=== PATIENT | female | born 1995 | race Caucasian/White ===

== ENCOUNTER 2016-09-27 10:55 | Emergency (ER) | payer BC, OTHER ==
[2016-09-27] MEDS ORDERED: SODIUM CHLORIDE 0.9% 1,000 ML IV STA (14:06)
[2016-09-27] MEDS ORDERED: ACETAMINOPHEN IV (For NPO) 1,000 MG in EMPTY BAG 1 BAG IVPB STA (14:06)
[2016-09-27 14:39] LABS: Basophils % (A) 0 %; CHCM 33.8; Eosinophils % (A) 0 %; HCT 39.3 % (34.0-46.0); HDW 2.26; Luc # (Auto) 0.11; Luc % (Auto) 2; Lymphocytes # (A) 1.7 k/uL (1.0-4.8); Lymphocytes % (A) 25 %; MCH 29.6 pg (25.0-35.0); MCHC 33.2 g/dL (31.0-37.0); Mean Platelet Volume 7.1; Monocytes # (A) 0.2 k/uL (0-1.0); Monocytes % (A) 4 %; Neutrophils # (A) 4.6 k/uL (1.3-7.7); Neutrophils % (A) 69 %; RBC 4.41 m/uL (3.80-5.40); RDW 13.7 % (11.5-15.5); WBC 6.7 k/uL (4.0-11.0)
[2016-09-27 14:49] LABS: Appearance,Urine Cloudy (Clear); Bacteria,Urine Rare /hpf; Bilirubin,Urine Negative (Negative); Glucose,Urine (UA) Negative (Negative); Ketones,Urine Negative (Negative); Leukocyte Esterase,Urine Large (Negative); Mucus,Urine Rare /hpf; Nitrite,Urine Negative (Negative); Particle Count 9790; Protein,Urine Negative (Negative); RBC,Urine 1 /hpf (0-5); Specific Gravity,Urine 1.011 (1.001-1.035); Squamous Epithelial Cell,Urine 12 /hpf (0-4); UA Billing (MACRO vs. MICRO) MICRO; Urobilinogen,Urine <2.0 mg/dL (<2.0); WBC,Urine 32 /hpf (0-5)
[2016-09-27 14:53] LABS: ALT 28 U/L (9-52); AST 13 U/L (14-36); Alkaline Phosphatase 60 U/L (38-126); Anion Gap 11 mmol/L; Blood Urea Nitrogen 4 mg/dL (7-17); Calcium 9.4 mg/dL (8.4-10.2); Carbon Dioxide 24 mmol/L (22-30); Chloride 103 mmol/L (98-107); Glucose 77 mg/dL (74-99); Non-African American GFR(MDRD) >60 (>60 ml/min/1.73 sqM); Sodium 138 mmol/L (137-145); Total Bilirubin 0.4 mg/dL (0.2-1.3); Total Protein 6.8 g/dL (6.3-8.2)
--- NOTE | 2016-09-27 14:58 | ED ---
Abdominal Pain HPI - General Chief Complaint: OB/Uterine Contractions Stated Complaint: abd pain, 12 weeks preg Time Seen by Provider: 09/27/16 14:00 Source: patient, RN notes reviewed Mode of arrival: ambulatory Limitations: no limitations - History of Present Illness Initial Comments: 20-year-old female presents to the emergency Department chief complaint of bilateral side pain. Patient states this started over the last few days. Patient states that's on the lower belly as well as the back. Patient states that she is currently about 12 weeks. Patient states that she called the [facility] she was referred here. Patient denies any burning or stinging with urination. Patient denies any fever or chills. Patient states that her belly doesn't hurt side. Patient states that it not really tender to touch either. Patient states she was concerned due to the pain so she thought that she should be evaluated. Patient states that she is not currently having any other symptoms at this time.Patient denies any recent fever, chills, shortness of breath, chest pain, back pain, abdominal pain, nausea vomiting, numbness or tingling, dysuria or hematuria, constipation or diarrhea, headaches or visual changes, or any other current symptoms. - Related Data Home Medications Medication Instructions Recorded Confirmed Pnv with Ca,No.72/Iron/FA 1 tab PO W/LUNCH 09/27/16 09/27/16 [ Plus Tablet] Previous Rx's Medication Instructions Recorded Nitrofurantoin Macrocrystal 100 mg PO BID #10 cap 09/27/16 [Macrodantin] Allergies Allergy/AdvReac Type Severity Reaction Status Date / Time cephalexin monohydrate Allergy Rash/Hives Verified 09/27/16 11:53 [From Keflex] erythromycin base Allergy Rash/Hives Verified 09/27/16 11:53 [Erythromycin Base] lamotrigine [From Lamictal] Allergy Rash/Hives Verified 09/27/16 11:53 sulfamethoxazole Allergy Rash/Hives Verified 09/27/16 11:53 [From Bactrim] trimethoprim [From Bactrim] Allergy Rash/Hives Verified 09/27/16 11:53 Review of Systems ROS Statement: Those systems with pertinent positive or pertinent negative responses have been documented in the HPI. ROS Other: All systems not noted in ROS Statement are negative. Past Medical History Past Medical History: No Reported History Additional Past Medical History / Comment(s): Obstetric history: This is her first and she has had care with me since 17 weeks but has skipped several appts. O+, abs neg, Rub Imm, RPR NR, Hep B neg. She has been battling depression with this and I encouraged her several times to see a counsellor. GBS neg. History of Any Multi-Drug Resistant Organisms: None Reported Past Surgical History: Adenoidectomy, Tonsillectomy Additional Past Surgical History / Comment(s): abscess removed from neck Past Anesthesia/Blood Transfusion Reactions: No Reported Reaction Past Psychological History: Anxiety, Depression Smoking Status: Never smoker Past Alcohol Use History: None Reported Past Drug Use History: None Reported - Past Family History Mother Family Medical History: Hypertension General Exam - General Exam Comments Initial Comments: General: The patient is awake and alert, in no distress, and does not appear acutely ill. Eye: Pupils are equal, round and reactive to light, extra-ocular movements are intact; there is normal conjunctiva bilaterally. No signs of icterus. Ears, nose, mouth and throat: There are moist mucous membranes. Neck: The neck is supple, there is no tenderness. Cardiovascular: There is a regular rate and rhythm. No murmur, rub or gallop is appreciated. Respiratory: Lungs are clear to auscultation, respirations are non-labored, breath sounds are equal. No wheezes, stridor, rales, or rhonchi. Gastrointestinal: Soft, non-distended, non-tender abdomen without masses or organomegaly noted. There is no rebound or guarding present. No CVA tenderness. Bowel sounds are unremarkable. Back: There is no tenderness to palpation in the midline. There is no obvious deformity. No rashes noted. Musculoskeletal: Normal ROM, no tenderness, There is no pedal edema. There is no calf tenderness or swelling. Sensation intact. Pulses equal bilaterally 2+. Neurological: CN II-XII intact, There are no obvious motor or sensory deficits. Coordination appears grossly intact. Speech is normal. Skin: Skin is warm and dry and no rashes or lesions are noted. Psychiatric: Cooperative, appropriate mood & affect, normal judgment. Limitations: no limitations Course Vital Signs 09/27/16 09/27/16 11:50 14:42 Temperature 98.3 F 98.2 F Pulse Rate 74 74 Respiratory 20 16 Rate Blood Pressure 132/66 122/64 O2 Sat by Pulse 97 99 Oximetry Medical Decision Making - Medical Decision Making 20-year-old female presents emergency department chief complaint of side pain belly pain and back pain. Patient at this time does appear to have UTI. At this time we will start her on nitrofurantoin. Discussed follow-up and return parameters. We discussed all the patient's questions. She stated that she understood and she is in agreement with the plan. At this time she will be discharged home. - Lab Data Result diagrams: 09/27/16 14:15 09/27/16 14:15 Lab Results 09/27/16 09/27/16 09/27/16 Range/Units 14:15 14:15 14:15 WBC 6.7 (4.0-11.0) k/uL RBC 4.41 (3.80-5.40) m/uL Hgb 13.0 (11.4-16.0) gm/dL Hct 39.3 (34.0-46.0) % MCV 89.0 (80.0-100.0) fL MCH 29.6 (25.0-35.0) pg MCHC 33.2 (31.0-37.0) g/dL RDW 13.7 (11.5-15.5) % Plt Count 272 (150-450) k/uL Neutrophils % 69 % Lymphocytes % 25 % Monocytes % 4 % Eosinophils % 0 % Basophils % 0 % Neutrophils # 4.6 (1.3-7.7) k/uL Lymphocytes # 1.7 (1.0-4.8) k/uL Monocytes # 0.2 (0-1.0) k/uL Eosinophils # 0.0 (0-0.7) k/uL Basophils # 0.0 (0-0.2) k/uL Sodium 138 (137-145) mmol/L Potassium 4.0 (3.5-5.1) mmol/L Chloride 103 (98-107) mmol/L Carbon Dioxide 24 (22-30) mmol/L Anion Gap 11 mmol/L BUN 4 L (7-17) mg/dL Creatinine 0.45 L (0.52-1.04) mg/dL Est GFR (MDRD) Af Amer >60 (>60 ml/min/1.73 sqM) Est GFR (MDRD) Non-Af >60 (>60 ml/min/1.73 sqM) Glucose 77 (74-99) mg/dL Calcium 9.4 (8.4-10.2) mg/dL Total Bilirubin 0.4 (0.2-1.3) mg/dL AST 13 L (14-36) U/L ALT 28 (9-52) U/L Alkaline Phosphatase 60 (38-126) U/L Total Protein 6.8 (6.3-8.2) g/dL Albumin 3.9 (3.5-5.0) g/dL Urine Color Yellow Urine Appearance Cloudy H (Clear) Urine pH 6.0 (5.0-8.0) Ur Specific [place] 1.011 (1.001-1.035) Urine Protein Negative (Negative) Urine Glucose (UA) Negative (Negative) Urine Ketones Negative (Negative) Urine Blood Negative (Negative) Urine Nitrate Negative (Negative) Urine Bilirubin Negative (Negative) Urine Urobilinogen <2.0 (<2.0) mg/dL Ur Leukocyte Esterase Large H (Negative) Urine RBC 1 (0-5) /hpf Urine WBC 32 H (0-5) /hpf Ur Squamous Epith Cells 12 H (0-4) /hpf Urine Bacteria Rare H (None) /hpf Urine Mucus Rare H (None) /hpf Disposition Clinical Impression: UTI (urinary tract infection) Disposition: HOME SELF-CARE Condition: Stable Instructions: Urinary Tract Infection in Women (ED) Additional Instructions: Please use medication as discussed. Please follow up with family doctor if symptoms have not improved over the next two days. Please return to the emergency room if your symptoms increase or worsen or for any other concerns. Prescriptions: Nitrofurantoin Macrocrystal [Macrodantin] 100 mg PO BID #10 cap Referrals: Robert Joya MD [Primary Care Provider] - 1-2 days Time of Disposition: 15:17
[2016-09-27 15:26] VITALS: BP 122/56; PULSE 92; RESP 18; TEMP 97
== END 2016-09-27 15:27 | disposition home or self-care (01) ==
LOC: EC 10:55
DX: O23.41 Unspecified infection of urinary tract in pregnancy, first trimester (principal); Z3A.12 12 weeks gestation of pregnancy; Z88.1 Allergy status to other antibiotic agents; Z88.2 Allergy status to sulfonamides; Z88.8 Allergy status to other drugs, medicaments and biological substances
CPT/HCPCS: 36415; 80053; 85025; 81001; 87086; 99284; J0131

== ENCOUNTER 2016-09-30 04:49 | Emergency (ER) | payer BC, OTHER ==
[2016-09-30] MEDS ORDERED: SODIUM CHLORIDE 0.9% 500 ML IV ONE (05:39)
--- NOTE | 2016-09-30 05:45 | ED ---
Female Urogenital HPI - General Chief complaint: Vaginal Bleeding Stated complaint: Abdominal Pain/SOB 12wks Preg Time Seen by Provider: 09/30/16 05:08 Source: patient, RN notes reviewed Mode of arrival: ambulatory Limitations: no limitations - History of Present Illness Initial comments: This patient is 21-year-old woman who presents to be evaluated for vaginal bleeding that started tonight at approximately 3:30 AM. The patient states it appears to have been brought on by sexual intercourse. Patient also having some sharp cramping in the bilateral pelvic areas. She believes she is about 12 weeks by dates, but has not had ultrasound. Patient not aware of her blood type. MD Complaint: vaginal bleeding, pelvic pain Onset/Timin -: hour(s) Location: LLQ, RLQ Radiation: non-radiating Severity: moderate Quality: cramping, sharp Consistency: constant Improves with: none Worsens with: none Patient : Yes Number of weeks : 12 Associated Symptoms: vaginal bleeding - Related Data Sexually active: Yes : 2 Para: 1 Home Medications Medication Instructions Recorded Confirmed Pnv with Ca,No.72/Iron/FA 1 tab PO W/LUNCH 09/27/16 09/27/16 [ Plus Tablet] Previous Rx's Medication Instructions Recorded Nitrofurantoin Macrocrystal 100 mg PO BID #10 cap 09/27/16 [Macrodantin] Allergies Allergy/AdvReac Type Severity Reaction Status Date / Time cephalexin monohydrate Allergy Rash/Hives Verified 09/27/16 11:53 [From Keflex] erythromycin base Allergy Rash/Hives Verified 09/27/16 11:53 [Erythromycin Base] lamotrigine [From Lamictal] Allergy Rash/Hives Verified 09/27/16 11:53 sulfamethoxazole Allergy Rash/Hives Verified 09/27/16 11:53 [From Bactrim] trimethoprim [From Bactrim] Allergy Rash/Hives Verified 09/27/16 11:53 Review of Systems ROS Statement: Those systems with pertinent positive or pertinent negative responses have been documented in the HPI. ROS Other: All systems not noted in ROS Statement are negative. Constitutional: Denies: fever, chills Respiratory: Denies: cough, dyspnea Cardiovascular: Denies: chest pain, palpitations, edema, syncope Gastrointestinal: Reports: as per HPI, abdominal pain. Denies: vomiting, diarrhea Genitourinary: Denies: dysuria, hematuria Musculoskeletal: Denies: back pain Skin: Denies: rash Neurological: Denies: headache, weakness, numbness Past Medical History Past Medical History: No Reported History Additional Past Medical History / Comment(s): Obstetric history: This is her first and she has had care with me since 17 weeks but has skipped several appts. O+, abs neg, Rub Imm, RPR NR, Hep B neg. She has been battling depression with this and I encouraged her several times to see a counsellor. GBS neg. History of Any Multi-Drug Resistant Organisms: None Reported Past Surgical History: Adenoidectomy, Tonsillectomy Additional Past Surgical History / Comment(s): abscess removed from neck Past Anesthesia/Blood Transfusion Reactions: No Reported Reaction Past Psychological History: Anxiety, Depression Smoking Status: Never smoker Past Alcohol Use History: None Reported Past Drug Use History: None Reported - Past Family History Mother Family Medical History: Hypertension General Exam Limitations: no limitations General appearance: alert, in no apparent distress Head exam: Present: atraumatic, normocephalic Eye exam: Present: normal appearance Respiratory exam: Present: normal lung sounds bilaterally. Absent: respiratory distress, wheezes, rales, rhonchi, stridor Cardiovascular Exam: Present: regular rate, normal rhythm, normal heart sounds. Absent: systolic murmur, diastolic murmur, rubs, gallop GI/Abdominal exam: Present: soft, normal bowel sounds. Absent: distended, tenderness, guarding, rebound, mass, pulsatile mass, hernia Extremities exam: Present: normal inspection, normal capillary refill. Absent: pedal edema, calf tenderness Back exam: Present: normal inspection. Absent: CVA tenderness (R), CVA tenderness (L) Neurological exam: Present: alert Skin exam: Present: warm, dry, intact, normal color. Absent: rash Course Vital Signs 09/30/16 09/30/16 05:11 08:19 Temperature 97.9 F 98.3 F Pulse Rate 96 92 Respiratory 16 16 Rate Blood Pressure 132/91 106/53 O2 Sat by Pulse 97 100 Oximetry Medical Decision Making - Lab Data Result diagrams: 09/30/16 05:58 09/30/16 05:58 Lab Results 09/30/16 09/30/16 09/30/16 Range/Units 05:58 05:58 06:52 WBC 6.4 (4.0-11.0) k/uL RBC 4.18 (3.80-5.40) m/uL Hgb 12.4 (11.4-16.0) gm/dL Hct 36.5 (34.0-46.0) % MCV 87.4 (80.0-100.0) fL MCH 29.6 (25.0-35.0) pg MCHC 33.9 (31.0-37.0) g/dL RDW 13.7 (11.5-15.5) % Plt Count 291 (150-450) k/uL Neutrophils % 66 % Lymphocytes % 28 % Monocytes % 4 % Eosinophils % 1 % Basophils % 0 % Neutrophils # 4.2 (1.3-7.7) k/uL Lymphocytes # 1.8 (1.0-4.8) k/uL Monocytes # 0.3 (0-1.0) k/uL Eosinophils # 0.1 (0-0.7) k/uL Basophils # 0.0 (0-0.2) k/uL Sodium 140 (137-145) mmol/L Potassium 3.7 (3.5-5.1) mmol/L Chloride 104 (98-107) mmol/L Carbon Dioxide 24 (22-30) mmol/L Anion Gap 12 mmol/L BUN 5 L (7-17) mg/dL Creatinine 0.50 L (0.52-1.04) mg/dL Est GFR (MDRD) Af Amer >60 (>60 ml/min/1.73 sqM) Est GFR (MDRD) Non-Af >60 (>60 ml/min/1.73 sqM) Glucose 86 (74-99) mg/dL Calcium 9.2 (8.4-10.2) mg/dL HCG, Quant 65706.2 mIU/mL Blood Type O Positive Blood Type Recheck No Disposition Clinical Impression: Threatened Disposition: HOME SELF-CARE Condition: Good Instructions: Threatened Miscarriage (ED) Referrals: Robert Joya MD [Primary Care Provider] - 1-2 days Shala Waller MD [STAFF PHYSICIAN] - 1-2 days
[2016-09-30 06:11] LABS: Basophils % (A) 0 %; CH 30.2; CHCM 34.7; Eosinophils # (A) 0.1 k/uL (0-0.7); Eosinophils % (A) 1 %; HCT 36.5 % (34.0-46.0); HDW 2.27; HGB 12.4 gm/dL (11.4-16.0); Luc # (Auto) 0.11; Luc % (Auto) 2; Lymphocytes # (A) 1.8 k/uL (1.0-4.8); Lymphocytes % (A) 28 %; MCH 29.6 pg (25.0-35.0); MCHC 33.9 g/dL (31.0-37.0); MCV 87.4 fL (80.0-100.0); Mean Platelet Volume 6.7; Monocytes # (A) 0.3 k/uL (0-1.0); Monocytes % (A) 4 %; Neutrophils # (A) 4.2 k/uL (1.3-7.7); Neutrophils % (A) 66 %; RBC 4.18 m/uL (3.80-5.40); RDW 13.7 % (11.5-15.5); WBC 6.4 k/uL (4.0-11.0); WBC (Perox) 6.58
[2016-09-30 06:29] LABS: Anion Gap 12 mmol/L; Blood Urea Nitrogen 5 mg/dL (7-17); Calcium 9.2 mg/dL (8.4-10.2); Carbon Dioxide 24 mmol/L (22-30); Chloride 104 mmol/L (98-107); Glucose 86 mg/dL (74-99); Non-African American GFR(MDRD) >60 (>60 ml/min/1.73 sqM); Potassium 3.7 mmol/L (3.5-5.1); Sodium 140 mmol/L (137-145)
[2016-09-30 07:11] LABS: HCG,Quantitative Serum 48758.2 mIU/mL
--- NOTE | 2016-09-30 08:41 | US ---
EXAMINATION TYPE: US OB <= 14 wk fetus DATE OF EXAM: 09/30/2016 7:32 AM COMPARISON: NONE CLINICAL HISTORY: Vaginal Bleeding after intercourse. Cramping EXAM PERFORMED: Transabdominal (TA) EXAM MEASUREMENTS: GESTATIONAL AGE / DATING Physician Established: unknown Dates by LMP: (14 weeks/1 days) EDC: 03/30/17 Dates by First Scan: no prior exam Dates by Current Scan for: (13 weeks/2 days) EDC: 04/05/17 MATERNAL ANATOMY Uterus: 16.3 x 6.3 x 9.3cm Right Ovary: 3.3 x 1.8 x 1.7cm Left Ovary: 3.4 x 1.6 x 2.4cm Post CDS / Adnexa: appears wnl Presence of free fluid: no Presence of corpus luteal cyst: yes, hypoechoic area right ovary = 1.9 x 1.7 x 1.6cm Presence of subchorionic bleed: yes, left of gestational sac = 2.2cm GESTATION / SURVEY CRL: 7.1cm (13 weeks/2 days) Yolk Sac (normal less than 6mm): not seen Heart Rate: 158 bpm Rhythm: Normal IUP: Viable IUP Date of LMP: 06/23/16 Beta HcG (if available): 40286 TECHNOLOGIST IMPRESSION: Single viable IUP 13wks/2days with TREVOR of 04/05/17. Corpus luteum right ova ry. Small subchorionic bleed IMPRESSION: 1. Single intrauterine gestation estimated at 13 weeks 2 days gestation. Cardiac activity measures 15 8 bpm.
[2016-09-30 09:11] VITALS: BP 122/63; PULSE 103; RESP 18; TEMP 98.6
== END 2016-09-30 09:27 | disposition home or self-care (01) ==
LOC: EC 04:49
DX: O20.0 Threatened abortion (principal); Z3A.13 13 weeks gestation of pregnancy; Z88.1 Allergy status to other antibiotic agents; Z88.2 Allergy status to sulfonamides; Z88.8 Allergy status to other drugs, medicaments and biological substances
CPT/HCPCS: 36415; 76801; 80048; 84702; 85025; 86900; 86901; 99284

== ENCOUNTER 2017-01-23 18:34 | Outpatient (CLI) | payer BC, OTHER ==
[2017-01-23 19:20] VITALS: BP 142/69; PULSE 108; RESP 16; TEMP 97.2
== END 2017-01-23 19:12 | disposition home or self-care (01) ==
LOC: FBPOP 18:34
PROVIDERS: ATTEND Obstetrics & Gynecology
DX: O26.93 Pregnancy related conditions, unspecified, third trimester (principal); Z3A.29 29 weeks gestation of pregnancy
CPT/HCPCS: 59025; 99213

== ENCOUNTER 2017-03-13 18:56 | Outpatient (CLI) | payer BC, OTHER ==
[2017-03-13 19:51] VITALS: BP 123/60; PULSE 85; RESP 16; TEMP 97.9
--- NOTE | 2017-03-16 12:21 | P.MSEPDOC ---
Presenting Problems - Arrival Data Date of Arrival on Unit: 03/13/17 Time of Arrival on Unit: 18:55 Mode of Transport: Ambulatory - Complaint OB-Reason for Admission/Chief Complaint: Vaginal Bleeding Medical History - Information : 2 Para: 1 Term: 1 : 0 Abortions: Spontaneous or Elective: 0 Number of Living Children: 1 - Gestational Age Expected Date of Delivery: 04/06/17 Gestational Age by TRVEOR (wks/days): 37 Weeks and 0 Days - History Sexually Transmitted Diseases: Chlamydia Review of Systems - Review of Systems Constitutional: No problems Breast: No problems ENT: No problems Cardiovascular: No problems Respiratory: No problems Gastrointestinal: No problems Genitourinary: No problems Musculoskeletal: No problems Neurological: No problems Skin: No problems Vital Signs - Temperature Temperature: 97.9 F Temperature Source: Oral - Pulse Right Sitting Brachial Pulse Rate: 85 Pulse Assessment Method: Automatic Cuff - Respirations Respiratory Rate: 16 Oxygen Delivery Method: Room Air O2 Sat by Pulse Oximetry: 98 - Blood Pressure Right Arm Sitting Blood Pressure: 123/60 Blood Pressure Mean: 81 Blood Pressure Source: Automatic Cuff Medical Screen Scoring (Pre) - Cervical Exam Dilation: 1-3 cm = 1 - Uterine Contractions Frequency: > 5 minutes apart = 1 Duration: > 40 seconds = 2 Intensity: N/A - Maternal Vital Signs Maternal Temperature: N/A Maternal Blood Pressure: N/A Signs of Preeclampsia: N/A Maternal Respirations: N/A - Maternal Trauma Maternal Trauma: N/A - Assessment Baseline FHR: 140 Heart Rate - NICHD Category: Category I (Normal) = 0 NST: Reactive Position: N/A Station: N/A - Total Score Total Score (Pre): 4 - Level of Risk Level of Risk: Low (0-5) Physician Notification (Pre) - Physician Notified Physician Notified Date: 03/13/17 Physician Notified Time: 19:37 Physician/Practitioner Notifed:: dr quan Spoke With: dr quan New Order Received: Yes - Notification Comment Comment: d/c pt home Medical Screen Scoring (Post) - Cervical Exam Dilation: 1-3 cm = 1 Membranes: Intact - Uterine Contractions Frequency: > 5 minutes apart = 1 Duration: > 40 seconds = 2 Intensity: N/A - Maternal Vital Signs Maternal Temperature: N/A Maternal Blood Pressure: N/A Signs of Preeclampsia: N/A Maternal Respirations: N/A - Maternal Trauma Maternal Trauma: N/A - Assessment Heart Rate: 130 Heart Rate - NICHD Category: Category I (Normal) = 0 NST: Reactive Position: N/A Station: N/A - Total Score Total Score (Post): 4 - Post Treatment Level of Risk Post Treatment Level of Risk: Low (0-5) Disposition - Disposition OB Disposition: Discharge to home Discharge Date: 03/13/17 Discharge Time: 19:40 I agree with the RN Medical Screening Exam: Yes Physician's MSE Comment: incomplete documentation of discharge instructions on MSE Risk & Benefit of care provided described in d/c instruction: No Diagnosis: 37 WEEKS GESTATION OF
== END 2017-03-13 19:40 | disposition home or self-care (01) ==
LOC: FBPOP 18:56
PROVIDERS: ATTEND Obstetrics & Gynecology
DX: O26.853 Spotting complicating pregnancy, third trimester (principal); Z3A.37 37 weeks gestation of pregnancy; Z87.42 Personal history of other diseases of the female genital tract
CPT/HCPCS: 59025; 84112; 99213

== ENCOUNTER 2017-03-24 | Outpatient (CLI) | payer BC, OTHER ==
--- NOTE | 2017-06-18 09:43 | P.MSEPDOC ---
Presenting Problems - Arrival Data Date of Arrival on Unit: 03/24/17 Time of Arrival on Unit: 04:16 Mode of Transport: Ambulatory - Complaint OB-Reason for Admission/Chief Complaint: Possible Onset of Labor Medical History - Information : 2 Para: 1 Term: 1 : 0 Abortions: Spontaneous or Elective: 0 Number of Living Children: 1 - Gestational Age Gestational Age by TREVOR (wks/days): 38 Weeks and 1 Days - History Complications: Smoker Sexually Transmitted Diseases: GC, Chlamydia Review of Systems - Review of Systems Constitutional: No problems Breast: No problems ENT: No problems Cardiovascular: No problems Respiratory: No problems Gastrointestinal: No problems Genitourinary: No problems Musculoskeletal: No problems Neurological: No problems Skin: No problems Vital Signs - Temperature Temperature: 98.1 F Temperature Source: Oral - Pulse Right Sitting Pulse Rate: 93 Pulse Assessment Method: Automatic Cuff - Respirations Respiratory Rate: 14 Oxygen Delivery Method: Room Air - Blood Pressure Right Arm Blood Pressure: 117/75 Blood Pressure Mean: 89 Blood Pressure Source: Automatic Cuff Medical Screen Scoring (Pre) - Cervical Exam Dilation: 1-3 cm = 1 Membranes: Intact - Uterine Contractions Frequency: > or = 36 weeks =2 - Maternal Vital Signs Maternal Temperature: N/A Maternal Blood Pressure: N/A Signs of Preeclampsia: N/A Maternal Respirations: N/A - Maternal Trauma Maternal Trauma: N/A - Assessment Baseline FHR: 135 Heart Rate - NICHD Category: Category I (Normal) = 0 NST: Reactive Position: N/A Station: N/A - Total Score Total Score (Pre): 3 - Level of Risk Level of Risk: Low (0-5) Physician Notification (Pre) - Physician Notified Physician Notified Date: 03/24/17 Physician Notified Time: 05:30 Physician/Practitioner Notifed:: Dr. Waller Spoke With: Dr. Waller Disposition - Disposition OB Disposition: Physician follow up in office, Discharge to home Discharge Date: 03/24/17 Discharge Time: 05:54 I agree with the RN Medical Screening Exam: Yes Risk & Benefit of care provided described in d/c instruction: Yes Diagnosis: FALSE LABOR AT OR AFTER 37 COMPLETED WEEKS OF GESTATION
== END 2017-03-24 05:55 | disposition home or self-care (01) ==
CPT/HCPCS: 59025; 99213

== ENCOUNTER 2017-03-30 05:53 | Inpatient (IN) | payer BC, OTHER ==
[2017-03-30 06:16] VITALS: BMI 33.2
[2017-03-30] MEDS ORDERED: CARBOPROST TROMETHAMINE 250 MCG/ML 1 ML AMP IM PRN (06:29)
[2017-03-30] MEDS ORDERED: LIDOCAINE 1% (PF) 10 MG/ML (30 ML SDV) SQ PRN (06:29)
[2017-03-30] MEDS ORDERED: METHYLERGONOVINE 0.2 MG/ML 1 ML AMP IM PRN (06:29)
[2017-03-30] MEDS ORDERED: TERBUTALINE 1 MG/ML VIAL SQ PRN (06:29)
[2017-03-30] MEDS ORDERED: OXYTOCIN 10 UNIT/ML 1 ML VIAL IM PRN (06:29)
[2017-03-30] MEDS: OXYTOCIN 20 UNITS/1000 ML NS 1,000 ML IV SCH (06:46)
[2017-03-30] MEDS: LACTATED RINGERS 1,000 ML IV SCH ×3 (06:46→15:12)
[2017-03-30 06:49] LABS: Basophils # (A) 0.1 k/uL (0-0.2); Basophils % (A) 1 %; CH 27.1; Eosinophils # (A) 0.1 k/uL (0-0.7); Eosinophils % (A) 1 %; HCT 34.4 % (34.0-46.0); HDW 3.16; HGB 11.2 gm/dL (11.4-16.0); Luc % (Auto) 2; Lymphocytes # (A) 2.4 k/uL (1.0-4.8); Lymphocytes % (A) 27 %; MCH 26.7 pg (25.0-35.0); MCHC 32.5 g/dL (31.0-37.0); MCV 82.3 fL (80.0-100.0); Monocytes # (A) 0.5 k/uL (0-1.0); Monocytes % (A) 6 %; Neutrophils # (A) 5.7 k/uL (1.3-7.7); Neutrophils % (A) 64 %; RBC 4.18 m/uL (3.80-5.40); RDW 14.2 % (11.5-15.5); WBC 8.9 k/uL (4.0-11.0); WBC (Perox) 9.08
--- NOTE | 2017-03-30 12:21 | P.HPOB ---
History of Present Illness H&P Date: 03/30/17 Chief Complaint: IUP @ #9 0/7 weeks this is a 21 that presents for elective induction of labor. EDC 04/06 based on LMP = 20 week us she notes + FM, denies LOF or VB, some ctx labs O+ she is rubella immune RPR nonreactive hepatitis B surface antigen negative HIV negative she was noted to have a positive Chlamydia culture 2 which has been repeated and we are awaiting results she had a negative gestational diabetes screen at 28 weeks of 108 GBS s was negative in addition on 03/07/2017 SH nonsmoker and denies alcohol use PSH noise and tonsillectomy at age 7 Oral surgery age 8 PMH anxiety Bipolar disorder Depression VSS and she is afebrile PE: gen NAD normal heart and lung exam abdomen gravid and appropriate for GA ext trace edema is noted FHts reactive ctx rare sve per RN Impression: IUP @ 39weeks here for induction of labor Plan pitocin per protocol anticipate Past Medical History Past Medical History: No Reported History Additional Past Medical History / Comment(s): Hx anxiety/depression History of Any Multi-Drug Resistant Organisms: None Reported Past Surgical History: Adenoidectomy, Tonsillectomy Additional Past Surgical History / Comment(s): abscess removed from neck Past Anesthesia/Blood Transfusion Reactions: No Reported Reaction Past Psychological History: Anxiety, Depression Smoking Status: Never smoker Past Alcohol Use History: None Reported Past Drug Use History: None Reported - Past Family History Mother Family Medical History: Hypertension Medications and Allergies Home Medications Medication Instructions Recorded Confirmed Type Pnv,Calcium 72/Iron/Folic Acid 1 tab PO W/LUNCH 09/27/16 03/30/17 History [ Plus Tablet] Allergies Allergy/AdvReac Type Severity Reaction Status Date / Time cephalexin monohydrate Allergy Rash/Hives Verified 03/30/17 06:07 [From Keflex] erythromycin base Allergy Rash/Hives Verified 03/30/17 06:07 [Erythromycin Base] lamotrigine [From Lamictal] Allergy Rash/Hives Verified 03/30/17 06:07 sulfamethoxazole Allergy Rash/Hives Verified 03/30/17 06:07 [From Bactrim] trimethoprim [From Bactrim] Allergy Rash/Hives Verified 03/30/17 06:07 Exam Osteopathic Statement: *. No significant issues noted on an osteopathic structural exam other than those noted in the History and Physical/Consult. - Vital Signs Vital signs: Vital Signs Temp Pulse Resp BP Pulse Ox 03/30/17 06:08 96.8 F L 102 H 18 127/67 98 Intake and Output 03/29/17 03/30/17 03/30/17 22:59 06:59 14:59 Other: Weight 96.162 kg Results Result Diagrams: 03/30/17 06:15 Abnormal Lab Results - Last 24 Hours (Table) 03/30/17 Range/Units 06:15 Hgb 11.2 L (11.4-16.0) gm/dL
[2017-03-30] MEDS ORDERED: BUPIVACAINE (PF) 0.25% 30 ML VIAL ONE ×2 (13:25)
[2017-03-30] MEDS ORDERED: fentaNYL (PF) 50 MCG/ML 5 ML AMP ONE ×2 (13:25)
[2017-03-30] MEDS ORDERED: SODIUM CHLORIDE 0.9% 100 ML BAG ONE ×2 (13:25)
--- NOTE | 2017-03-30 20:08 | P.PROBDLV ---
Vaginal Delivery Note - . Vaginal Delivery Note: This is a very pleasant 21-year-old to labor and delivery earlier today for elective induction of labor patient was started on Pitocin and amniotomy was performed with clear fluid. Patient progressed through labor eventually be getting an epidural and then becoming complete patient delivered over an intact perineum, loose nuchal cord is reduced at the perineum, a viable male infant at 1952 Apgars of 6 and 9 weight of 75. Placenta was delivered spontaneously without difficulty. Estimated blood loss was less than 500 mL. The perineum was intact and no repair was needed. ALL counts were correct 2. Patient and infant are doing well.
[2017-03-30] MEDS ORDERED: LANOLIN CREAM 5 GM TUBE TOPICAL PRN (20:09)
[2017-03-30] MEDS ORDERED: SIMETHICONE 80 MG CHEWABLE PO PRN (20:09)
[2017-03-30] MEDS ORDERED: BENZOCAINE/MENTHOL SPRAY 1 GM/SPRAY AEROSOL TOPICAL PRN (20:09)
[2017-03-30] MEDS ORDERED: diphenhydrAMINE 50 MG/ML 1 ML VIAL IVP PRN ×2 (20:09)
[2017-03-30] MEDS ORDERED: HYDROCORTISONE 2.5% RECTAL CREAM 30 GM TUBE RECTAL PRN (20:09)
[2017-03-30] MEDS ORDERED: WITCH HAZEL 1 EACH MED..PAD TOPICAL PRN (20:09)
[2017-03-30] MEDS ORDERED: diphenhydrAMINE 50 MG CAP PO PRN (20:09)
[2017-03-30] MEDS ORDERED: diphenhydrAMINE 25 MG CAP PO PRN (20:09)
[2017-03-30] MEDS ORDERED: ZOLPIDEM 5 MG TAB PO PRN (20:09)
[2017-03-30] MEDS: ACETAMINOPHEN TAB 325 MG TAB PO PRN (20:16)
[2017-03-31] MEDS: IBUPROFEN 600 MG TAB PO PRN ×3 (03:44→18:08)
--- NOTE | 2017-03-31 07:42 | P.PNOBGVD ---
Subjective - Subjective Principal diagnosis: 21 yo status post spontaneous vaginal delivery Patient reports: Reports appetite normal, Reports voiding normally, Reports pain well controlled, Reports ambulating normally [place]: doing well (Baby was transferred to the nursery last night but this morning is doing well. Receiving IV fluids and antibiotics), other Objective - Latest Vital Signs Latest vital signs: Vital Signs Temp Pulse Resp BP Pulse Ox 03/31/17 03:45 98.3 F 101 H 16 126/80 03/31/17 00:00 99.1 F 88 16 112/53 98 03/30/17 22:05 96.6 F L 111 H 16 138/78 99 03/30/17 21:35 103 H 16 138/70 03/30/17 21:05 103 H 16 129/60 03/30/17 20:50 106 H 16 130/56 03/30/17 20:35 102 H 16 135/60 98 03/30/17 20:20 113 H 16 131/59 98 03/30/17 20:05 98.4 F 125 H 16 129/59 98 Intake and Output 03/30/17 03/31/17 03/31/17 22:59 06:59 14:59 Other: # Voids 1 1 - Exam Lungs: bilateral: normal Extremities: Present: normal Abdomen: Present: normal appearance Uterus: Present: normal, firm Assessment and Plan (1) Normal vaginal delivery Narrative/Plan: Mary is a pleasant 21-year-old now doing well status post spontaneous vaginal delivery of a viable male last p.m. she is ambulating and voiding without difficulty she denies discomfort and states her pain is well controlled. She is tolerating regular diet without nausea or vomiting. He is currently in the special care nursery receiving IV fluids and antibiotics but is doing well. Will continue to monitor the pt anticipate d/c tomorrow Current Visit: No Status: Acute Code(s): O80 - ENCOUNTER FOR FULL-TERM UNCOMPLICATED DELIVERY SNOMED Code(s): 20652051
[2017-03-31 08:03] LABS: Basophils % (A) 0 %; CH 26.7; CHCM 32.4; Eosinophils # (A) 0.1 k/uL (0-0.7); Eosinophils % (A) 1 %; HCT 30.3 % (34.0-46.0); HDW 3.05; HGB 9.9 gm/dL (11.4-16.0); Hypochromasia Slight; Luc # (Auto) 0.24; Luc % (Auto) 2; Lymphocytes # (A) 2.6 k/uL (1.0-4.8); Lymphocytes % (A) 22 %; MCH 27.2 pg (25.0-35.0); MCHC 32.8 g/dL (31.0-37.0); MCV 82.7 fL (80.0-100.0); Mean Platelet Volume 9.1; Monocytes # (A) 0.6 k/uL (0-1.0); Monocytes % (A) 5 %; Neutrophils % (A) 70 %; RBC 3.66 m/uL (3.80-5.40); RDW 13.9 % (11.5-15.5); WBC 11.5 k/uL (4.0-11.0); WBC (Perox) 11.99
[2017-03-31] MEDS: SENNOSIDES-DOCUSATE SODIUM 1 EACH TAB PO SCH ×2 (09:44→22:34)
[2017-03-31] MEDS: ACETAMINOPHEN TAB 325 MG TAB PO PRN (21:32)
[2017-03-31] MEDS: LACTATED RINGERS 1,000 ML IV SCH (22:35)
[2017-03-31] MEDS: OXYTOCIN 20 UNITS/1000 ML NS 1,000 ML IV SCH (22:35)
[2017-04-01] MEDS: IBUPROFEN 600 MG TAB PO PRN ×3 (00:29→17:54)
[2017-04-01] MEDS: ACETAMINOPHEN TAB 325 MG TAB PO PRN ×2 (04:06→18:37)
--- NOTE | 2017-04-01 08:10 | P.PNOBGVD ---
Subjective - Subjective Principal diagnosis: day #2 Interval history: Mary is day 2 from a normal spontaneous vaginal delivery. She is feeling well. She states pain is controlled, voiding and ambulate without difficulty. She is bottle feeding. Lochia is moderate Patient reports: Reports appetite normal, Reports voiding normally, Reports pain well controlled : doing well Objective - Latest Vital Signs Latest vital signs: Vital Signs Temp Pulse Resp BP 04/01/17 00:00 97.9 F 72 16 117/65 03/31/17 20:00 97.8 F 80 16 118/72 03/31/17 16:00 97.4 F L 75 18 108/59 - Exam Extremities: Present: normal Abdomen: Present: normal appearance, soft Uterus: Present: firm Assessment and Plan (1) Normal vaginal delivery Narrative/Plan: day 2 spontaneous vaginal delivery Anticipate discharge home today with routine care Plan for follow-up in 6 weeks at [facility]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
[2017-04-01 08:43] VITALS: RESP 18
[2017-04-01] MEDS: SENNOSIDES-DOCUSATE SODIUM 1 EACH TAB PO SCH (08:58)
[2017-04-01 18:06] VITALS: PULSE 88; TEMP 97.8
[2017-04-01 18:44] VITALS: BP 150/76
== END 2017-04-01 18:57 | disposition home or self-care (01) | DRG 775 ==
LOC: 4FBP 05:53
PROVIDERS: ADMIT Obstetrics & Gynecology Obstetrics; ATTEND Obstetrics & Gynecology Obstetrics
PROC: 10E0XZZ Delivery of Products of Conception, External Approach (ICD-10-PCS; principal; 2017-03-30)
PROC: 00HU33Z Insertion of Infusion Device into Spinal Canal, Percutaneous Approach (ICD-10-PCS; 2017-03-30)
PROC: 3E0R3CZ (ICD-10-PCS; 2017-03-30)
PROC: 3E033VJ Introduction of Other Hormone into Peripheral Vein, Percutaneous Approach (ICD-10-PCS; 2017-03-30)
DX: O69.81X0 Labor and delivery complicated by cord around neck, without compression, not applicable or unspecified (principal); Z86.59 Personal history of other mental and behavioral disorders; Z37.0 Single live birth; Z3A.39 39 weeks gestation of pregnancy; Z79.899 Other long term (current) drug therapy; Z88.1 Allergy status to other antibiotic agents; Z88.2 Allergy status to sulfonamides; Z88.8 Allergy status to other drugs, medicaments and biological substances
CPT/HCPCS: 85025

== ENCOUNTER 2018-08-12 17:27 | Emergency (ER) | payer BC, OTHER ==
[2018-08-12 19:16] LABS: Appearance,Urine Cloudy (Clear); Bacteria,Urine Occasional /hpf; Bilirubin,Urine Negative (Negative); Blood,Urine Negative (Negative); Color,Urine Yellow; Glucose,Urine (UA) Negative (Negative); Ketones,Urine Negative (Negative); Leukocyte Esterase,Urine Moderate (Negative); Mucus,Urine Rare /hpf; Nitrite,Urine Negative (Negative); PH, Urine 7.5 (5.0-8.0); Protein,Urine Trace (Negative); RBC,Urine 2 /hpf (0-5); Specific Gravity,Urine 1.016 (1.001-1.035); Squamous Epithelial Cell,Urine 9 /hpf (0-4); Urobilinogen,Urine <2.0 mg/dL (<2.0)
[2018-08-12 19:52] LABS: Basophils % (A) 0 %; Eosinophils % (A) 1 %; HCT 37.9 % (34.0-46.0); HGB 12.8 gm/dL (11.4-16.0); Lymphocytes # (A) 1.7 k/uL (1.0-4.8); Lymphocytes % (A) 24 %; MCH 29.5 pg (25.0-35.0); MCHC 33.7 g/dL (31.0-37.0); MCV 87.6 fL (80.0-100.0); Mean Platelet Volume 7.6; Monocytes # (A) 0.3 k/uL (0-1.0); Monocytes % (A) 4 %; Neutrophils # (A) 4.7 k/uL (1.3-7.7); Neutrophils % (A) 69 %; Platelet Count 252 k/uL (150-450); RBC 4.32 m/uL (3.80-5.40); RDW 13.6 % (11.5-15.5); WBC 6.8 k/uL (3.8-10.6)
[2018-08-12 20:01] LABS: ALT 39 U/L (9-52); AST 13 U/L (14-36); Albumin 3.6 g/dL (3.5-5.0); Alkaline Phosphatase 61 U/L (38-126); Anion Gap 8 mmol/L; Blood Urea Nitrogen 5 mg/dL (7-17); Calcium 9.2 mg/dL (8.4-10.2); Carbon Dioxide 26 mmol/L (22-30); Chloride 103 mmol/L (98-107); Glucose 86 mg/dL (74-99); Sodium 137 mmol/L (137-145); Total Bilirubin 0.3 mg/dL (0.2-1.3); Total Protein 6.3 g/dL (6.3-8.2)
--- NOTE | 2018-08-12 20:41 | US ---
EXAMINATION TYPE: US OB <= 14 wk twins DATE OF EXAM: 08/12/2018 COMPARISON: NONE CLINICAL HISTORY: Pain. Pain EXAM PERFORMED: Transabdominal (TA) EXAM MEASUREMENTS: GESTATIONAL AGE / DATING Physician Established: Not yet established Dates by LMP: LMP unknown Dates by First Scan: No previous this is first scan ( Dates by Current Scan for Baby A: (7 weeks/3 days) EDC: 03/28/2019 Dates by Current Scan for Baby B: (7 weeks/4 days) EDC: 03/27/2019 MATERNAL ANATOMY Uterus: 9.6 x 6.2 x 7.4 cm Right Ovary: 2.5 x 1.2 x 2.0 cm Post CDS / Adnexa: wnl Presence of free fluid: no Presence of corpus luteal cyst: no Presence of subchorionic bleed: no Presence of two separate gestational sacs: Yes GESTATION / SURVEY TWIN A CRL: 1.3cm (7wks/3days) Yolk Sac (normal less than 6mm): 3mm Heart Rate: 155 bpm Rhythm: Normal IUP: Viable IUP TWIN B CRL: 1.3cm (7wks/4days) Yolk Sac (normal less than 6mm): 3mm Heart Rate: 165 bpm Rhythm: Normal IUP: Viable IUP Beta HcG (if available): Not available at this time IMPRESSION: Dichorionic diamniotic twin gestation. Gestational age is 7 weeks and 4 days. No complicating process seen.
--- NOTE | 2018-08-12 21:16 | ED ---
Abdominal Pain HPI - General Chief Complaint: Abdominal Pain Stated Complaint: Abd Pain Source: patient Mode of arrival: ambulatory Limitations: no limitations - History of Present Illness Initial Comments: 22-year-old female L2, presenting today for chief complaint of dysuria and bladder pressure. Patient states that for the past 2 days she has experienced pain with urination as well as a sensation of bladder pressure. Patient denies any hematuria, urgency, frequency, abdominal pain, constipation, diarrhea, back pain, dyspareunia, fever, chills. Patient also states that she is concerned for , she states she has not had a period since the end of May. Patient states that she had a negative test of the report however on July 24 she thought she saw a faint line. Patient states the past 2-3 weeks she has had increased nausea and vomiting that she felt was consistent with . Patient denies vaginal discharge or bleeding. Patient states she is monogamous, with one sexual partner. Patient does have history of STI including gonorrhea and chlamydia a year ago. Remainder of ROS (- ) - Related Data Previous Rx's Medication Instructions Recorded Nitrofurantoin Macrocrystal 100 mg PO BID 3 Days #6 cap 08/12/18 [Macrodantin] Allergies Allergy/AdvReac Type Severity Reaction Status Date / Time cephalexin monohydrate Allergy Rash/Hives Verified 08/12/18 19:03 [From Keflex] erythromycin base Allergy Rash/Hives Verified 08/12/18 19:03 [Erythromycin Base] lamotrigine [From Lamictal] Allergy Rash/Hives Verified 08/12/18 19:03 sulfamethoxazole Allergy Rash/Hives Verified 08/12/18 19:03 [From Bactrim] trimethoprim [From Bactrim] Allergy Rash/Hives Verified 08/12/18 19:03 Review of Systems ROS Statement: Those systems with pertinent positive or pertinent negative responses have been documented in the HPI. ROS Other: All systems not noted in ROS Statement are negative. Constitutional: Denies: fever, chills Respiratory: Denies: cough Cardiovascular: Denies: chest pain, palpitations, dyspnea on exertion, edema Genitourinary: Reports: abnormal menses (amenorrhea). Denies: urgency, dysuria , frequency, hematuria, discharge, dyspareunia Skin: Denies: rash Neurological: Denies: headache, weakness, numbness, paresthesias, confusion Past Medical History Past Medical History: No Reported History Additional Past Medical History / Comment(s): Hx anxiety/depression History of Any Multi-Drug Resistant Organisms: None Reported Past Surgical History: Adenoidectomy, Tonsillectomy Additional Past Surgical History / Comment(s): abscess removed from neck Past Anesthesia/Blood Transfusion Reactions: No Reported Reaction Past Psychological History: Anxiety, Depression Smoking Status: Never smoker Past Alcohol Use History: None Reported Past Drug Use History: None Reported - Past Family History Mother Family Medical History: Hypertension General Exam - General Exam Comments Initial Comments: General: The patient is awake and alert, in no distress, and does not appear acutely ill. Eye: Pupils are equal, round and reactive to light, extra-ocular movements are intact. No nystagmus. There is normal conjunctiva bilaterally. No signs of icterus. Ears, nose, mouth and throat: There are moist mucous membranes and no oral lesions. Neck: The neck is supple, there is no tenderness or JVD. Cardiovascular: There is a regular rate and rhythm. No murmur, rub or gallop is appreciated. Respiratory: Lungs are clear to auscultation, respirations are non-labored, breath sounds are equal. No wheezes, stridor, rales, or rhonchi. Gastrointestinal: No noted diaphoresis, jaundice, pallor, protecting postures or squirming. Symmetrical pigmentation of abdomen without signs of inflammation. Striae present. Umbilicus mildline, inverted without swelling. No dilated veins. Abdomen contour obese, no noted abdominal distention. No visible masses. No peristalsis, aortic pulsations, or ventral hernia. Bowel sounds audible in all 4 quadrants, unremarkable. No friction rubs or venous hums. No epigastic, hepatic or abdominal bruits. No tenderness to light or deep palpation. Pt admitted to mild pressure over superior bladder margin, denied pain. No pelvic pain to palpation. Liver edge, not palpable. Spleen edge, right and left kidney not palpable. Superior bladder margin non-tender. Special Testing: Negative shifting dullness, fluid wave, [place], [place]ov[place], McBurney, Zina, cutaneous hyperesthesia. Iliopsoas and obturator tests negative bilaterally. Negative Heel Jar test/galileo sign. No CVA tenderness. Digital rectal exam deferred. Negative moore turners or cullens sign Musculoskeletal: Normal ROM, no tenderness. Strength 5/5. Sensation intact. Pulses equal bilaterally 2+. Neurological: A&O x 3. CN II-XII intact, There are no obvious motor or sensory deficits. Coordination appears grossly intact. Speech is normal. Skin: Skin is warm and dry and no rashes or lesions are noted. Psychiatric: Cooperative, appropriate mood & affect, normal judgment. EXAM: External: female hair pattern, no lesions/abrasions/lacerations Internal: [place] moist mucosa, well-rugated vaginal mucosa, no blood in vault, white discharge noted, no discharge from cerivcal os. Os closed. Cervix pink, lesions noted on cervix. No cervical motion tenderness. No tenderness or palpable masses on bimanual of uterus or adnexa. (-) Chandelier sign. Limitations: no limitations Course Vital Signs 08/12/18 08/12/18 08/12/18 17:57 19:10 21:46 Temperature 97.9 F 98.5 F Pulse Rate 98 85 102 H Respiratory 18 17 18 Rate Blood Pressure 124/80 132/84 134/87 O2 Sat by Pulse 100 10 L 99 Oximetry 08/12/18 08/12/18 22:38 23:12 Temperature 98.9 F Pulse Rate 100 18 L Respiratory 18 86 H Rate Blood Pressure 108/63 116/78 O2 Sat by Pulse 100 98 Oximetry Medical Decision Making - Medical Decision Making US revealed viable twin IUP. tones WNL. No complicating process seen at this time. Laboratory studies unremarkable. UA revealed findings concerning for urinary tract infection. White discharge on pelvic pt requested treatment for STD. Trichomonas (-). Hector and chlamydia pending. Pt states long ago she had mild rash with macrolides/cephalosporin, denies anaphylaxis as stated it was mild reaction. Contacted pharmacy for recommendation, given pt they recommend administering azithromycin and ceftriaxone regardless of rash, to de- sensitize patient. Pt agreeb with administration of medication understanding of risk, pt given medication, and monitored no rashes/anaphylaxis. Pt treated with macrobid for UTI, risk involved discussed with patient given 1st trimester, pt verbalized understanding. Case discussed with Dr. Seo who agrees with impression and an UTI. Pt will be discharged with OBGYN f/u. Pt is a established pt with Dr. Jesus. Return parameters discussed at length, pt verbalized understanding. Pt discharged in stable condition. - Lab Data Result diagrams: 08/12/18 19:02 08/12/18 19:02 Lab Results 08/12/18 08/12/18 08/12/18 Range/Units 18:20 18:20 19:02 WBC 6.8 (3.8-10.6) k/uL RBC 4.32 (3.80-5.40) m/uL Hgb 12.8 (11.4-16.0) gm/dL Hct 37.9 (34.0-46.0) % MCV 87.6 (80.0-100.0) fL MCH 29.5 (25.0-35.0) pg MCHC 33.7 (31.0-37.0) g/dL RDW 13.6 (11.5-15.5) % Plt Count 252 (150-450) k/uL Neutrophils % 69 % Lymphocytes % 24 % Monocytes % 4 % Eosinophils % 1 % Basophils % 0 % Neutrophils # 4.7 (1.3-7.7) k/uL Lymphocytes # 1.7 (1.0-4.8) k/uL Monocytes # 0.3 (0-1.0) k/uL Eosinophils # 0.0 (0-0.7) k/uL Basophils # 0.0 (0-0.2) k/uL Sodium (137-145) mmol/L Potassium (3.5-5.1) mmol/L Chloride (98-107) mmol/L Carbon Dioxide (22-30) mmol/L Anion Gap mmol/L BUN (7-17) mg/dL Creatinine (0.52-1.04) mg/dL Est GFR (CKD-EPI)AfAm (>60 ml/min/1.73 sqM) Est GFR (CKD-EPI)NonAf (>60 ml/min/1.73 sqM) Glucose (74-99) mg/dL Calcium (8.4-10.2) mg/dL Total Bilirubin (0.2-1.3) mg/dL AST (14-36) U/L ALT (9-52) U/L Alkaline Phosphatase (38-126) U/L Total Protein (6.3-8.2) g/dL Albumin (3.5-5.0) g/dL Urine Color Yellow Urine Appearance Cloudy H (Clear) Urine pH 7.5 (5.0-8.0) Ur Specific [place] 1.016 (1.001-1.035) Urine Protein Trace H (Negative) Urine Glucose (UA) Negative (Negative) Urine Ketones Negative (Negative) Urine Blood Negative (Negative) Urine Nitrite Negative (Negative) Urine Bilirubin Negative (Negative) Urine Urobilinogen <2.0 (<2.0) mg/dL Ur Leukocyte Esterase Moderate H (Negative) Urine RBC 2 (0-5) /hpf Urine WBC 3 (0-5) /hpf Ur Squamous Epith Cells 9 H (0-4) /hpf Urine Bacteria Occasional H (None) /hpf Urine Mucus Rare H (None) /hpf Urine HCG, Qual Detected (Not Detectd) Trichomonas Ag (Rapid) (Negative) 08/12/18 08/12/18 Range/Units 19:02 20:40 WBC (3.8-10.6) k/uL RBC (3.80-5.40) m/uL Hgb (11.4-16.0) gm/dL Hct (34.0-46.0) % MCV (80.0-100.0) fL MCH (25.0-35.0) pg MCHC (31.0-37.0) g/dL RDW (11.5-15.5) % Plt Count (150-450) k/uL Neutrophils % % Lymphocytes % % Monocytes % % Eosinophils % % Basophils % % Neutrophils # (1.3-7.7) k/uL Lymphocytes # (1.0-4.8) k/uL Monocytes # (0-1.0) k/uL Eosinophils # (0-0.7) k/uL Basophils # (0-0.2) k/uL Sodium 137 (137-145) mmol/L Potassium 4.0 (3.5-5.1) mmol/L Chloride 103 (98-107) mmol/L Carbon Dioxide 26 (22-30) mmol/L Anion Gap 8 mmol/L BUN 5 L (7-17) mg/dL Creatinine 0.45 L (0.52-1.04) mg/dL Est GFR (CKD-EPI)AfAm >90 (>60 ml/min/1.73 sqM) Est GFR (CKD-EPI)NonAf >90 (>60 ml/min/1.73 sqM) Glucose 86 (74-99) mg/dL Calcium 9.2 (8.4-10.2) mg/dL Total Bilirubin 0.3 (0.2-1.3) mg/dL AST 13 L (14-36) U/L ALT 39 (9-52) U/L Alkaline Phosphatase 61 (38-126) U/L Total Protein 6.3 (6.3-8.2) g/dL Albumin 3.6 (3.5-5.0) g/dL Urine Color Urine Appearance (Clear) Urine pH (5.0-8.0) Ur Specific [place] (1.001-1.035) Urine Protein (Negative) Urine Glucose (UA) (Negative) Urine Ketones (Negative) Urine Blood (Negative) Urine Nitrite (Negative) Urine Bilirubin (Negative) Urine Urobilinogen (<2.0) mg/dL Ur Leukocyte Esterase (Negative) Urine RBC (0-5) /hpf Urine WBC (0-5) /hpf Ur Squamous Epith Cells (0-4) /hpf Urine Bacteria (None) /hpf Urine Mucus (None) /hpf Urine HCG, Qual (Not Detectd) Trichomonas Ag (Rapid) Negative (Negative) Disposition Clinical Impression: Twin in first trimester, UTI (urinary tract infection) Disposition: HOME SELF-CARE Condition: Good Instructions: Urinary Tract Infection in (ED), at 7 to 10 Weeks (ED) Additional Instructions: Please use medication as discussed. Please follow-up with OBGYN in next 7-10 days. Please follow-up with primary care provider in next 1-2 days. Please return to emergency room if the symptoms increase or worsen or for any other concerns, including vaginal bleeding as discussed. Prescriptions: Nitrofurantoin Macrocrystal [Macrodantin] 100 mg PO BID 3 Days #6 cap Is patient prescribed a controlled substance at d/c from ED?: No Referrals: Robert Joya MD [Primary Care Provider] - 1-2 days Marion Lee DO [Doctor of Osteopathic Medicine] - 1-2 days Time of Disposition: 21:16
[2018-08-12] MEDS ORDERED: cefTRIAXone 250 MG VIAL IM STA (22:06)
[2018-08-12] MEDS ORDERED: AZITHROMYCIN 500 MG TAB PO STA (22:07)
[2018-08-12 23:13] VITALS: BP 116/78; PULSE 18; RESP 86; TEMP 98.9
[2018-08-13 16:05] LABS: C. trachomatis,PCR Negative (Neg,Equiv); Chlamydia trachomatis Source Vagina; N. gonorrhoeae,PCR Negative (Neg,Equiv); Neisseria Source Vagina
== END 2018-08-12 23:26 | disposition home or self-care (01) ==
LOC: EC 17:27
DX: O23.41 Unspecified infection of urinary tract in pregnancy, first trimester (principal); O30.001 Twin pregnancy, unspecified number of placenta and unspecified number of amniotic sacs, first trimester; O21.9 Vomiting of pregnancy, unspecified; Z88.1 Allergy status to other antibiotic agents; Z88.2 Allergy status to sulfonamides; Z88.8 Allergy status to other drugs, medicaments and biological substances; Z3A.01 Less than 8 weeks gestation of pregnancy
CPT/HCPCS: 36415; 80053; 85025; 81001; 81025; 87808; 87491; 87591; 76801; 76802; 99284; 96372; J0696

== ENCOUNTER 2018-08-29 15:57 | Emergency (ER) | payer BC, OTHER ==
[2018-08-29 17:13] LABS: Basophils % (A) 0 %; Eosinophils # (A) 0.1 k/uL (0-0.7); Eosinophils % (A) 1 %; HGB 13.1 gm/dL (11.4-16.0); Lymphocytes # (A) 1.9 k/uL (1.0-4.8); Lymphocytes % (A) 27 %; MCH 29.7 pg (25.0-35.0); MCHC 33.6 g/dL (31.0-37.0); MCV 88.3 fL (80.0-100.0); Mean Platelet Volume 7.3; Monocytes # (A) 0.3 k/uL (0-1.0); Monocytes % (A) 4 %; Neutrophils # (A) 4.6 k/uL (1.3-7.7); Neutrophils % (A) 66 %; Platelet Count 273 k/uL (150-450); RBC 4.42 m/uL (3.80-5.40); RDW 13.7 % (11.5-15.5)
[2018-08-29 17:26] LABS: ALT 35 U/L (9-52); AST 19 U/L (14-36); Albumin 3.9 g/dL (3.5-5.0); Alkaline Phosphatase 55 U/L (38-126); Anion Gap 10 mmol/L; Blood Urea Nitrogen 6 mg/dL (7-17); Calcium 9.5 mg/dL (8.4-10.2); Carbon Dioxide 20 mmol/L (22-30); Chloride 105 mmol/L (98-107); Glucose 83 mg/dL (74-99); Sodium 135 mmol/L (137-145); Total Bilirubin 0.3 mg/dL (0.2-1.3); Total Protein 6.8 g/dL (6.3-8.2)
[2018-08-29 17:30] LABS: Appearance,Urine Cloudy (Clear); Bacteria,Urine Rare /hpf; Bilirubin,Urine Negative (Negative); Blood,Urine Negative (Negative); Color,Urine Yellow; Glucose,Urine (UA) Negative (Negative); Ketones,Urine Negative (Negative); Leukocyte Esterase,Urine Large (Negative); Mucus,Urine Rare /hpf; Nitrite,Urine Negative (Negative); Protein,Urine Negative (Negative); RBC,Urine 2 /hpf (0-5); Specific Gravity,Urine 1.014 (1.001-1.035); Squamous Epithelial Cell,Urine 14 /hpf (0-4); Urobilinogen,Urine <2.0 mg/dL (<2.0)
--- NOTE | 2018-08-29 18:19 | US ---
EXAMINATION TYPE: US abdomen limited DATE OF EXAM: 08/29/2018 COMPARISON: EXAMINATION TYPE: US abdomen limited DATE OF EXAM: 08/29/2018 COMPARISON: NONE CLINICAL HISTORY: fall. Patient fell and is 11 weeks check for free fluid. All four quadrants scanned no fluid visualized. IMPRESSION: CLINICAL HISTORY: fall. STAT exam done through the ER; exam limitations due to acute trauma status. All four abdominal quad rants scanned to assess for fluid post trauma. This study is a focused, limited study. This is not a FAST scan as it does not meet the established AIUM guidelines as such. A trauma ultrasound provides a picture of a patient?s condition at one moment in time. It never elim inates the possibility of injury or fluid collections that are below the detectable threshold of an u ltrasound exam. If negative, alternate imaging may be clinically warranted. IMPRESSION: There is no evidence of free fluid in the abdomen.
--- NOTE | 2018-08-29 18:26 | US ---
EXAMINATION TYPE: US OB <= 14 wk twins DATE OF EXAM: 08/29/2018 COMPARISON: 08/12/2018 CLINICAL HISTORY: Pain. Cramping fell EXAM PERFORMED: Transabdominal (TA) EXAM MEASUREMENTS: GESTATIONAL AGE / DATING Physician Established: Not yet established Dates by LMP: (15 weeks/0 days) EDC: 02/20/2019 Dates by First Scan: ( 7 weeks/4 days) EDC: 03/24/2019 Dates by Current Scan for Baby A: (11 weeks/0 days) EDC: 03/20/2019 Dates by Current Scan for Baby B: (10 weeks/3 days) EDC: 03/24/2019 MATERNAL ANATOMY Uterus: 13.7 x 7.2 x 8.9 cm Right Ovary: 3.3 x 1.9 x 2.5 cm Left Ovary: 3.4 x 1.9 x 2.6 cm Post CDS / Adnexa: wnl Presence of free fluid: no Presence of corpus luteal cyst: yes Presence of subchorionic bleed: no Presence of two separate gestational sacs: yes GESTATION / SURVEY TWIN A CRL: 4.1 (11wks/0days) Heart Rate: 171 bpm Rhythm: Normal IUP: Viable IUP TWIN B CRL: 3.5 (10wks3/days) Heart Rate: 167 bpm Rhythm: Normal IUP: Viable IUP Beta HcG (if available): Not available at this time IMPRESSION: Dichorionic diamniotic twin gestation. There is satisfactory growth compared to last exam. No c omplicating process seen.
--- NOTE | 2018-08-29 19:21 | ED ---
Fall HPI - General Chief Complaint: Fall Stated Complaint: Fall, 11 weeks , cramping Time Seen by Provider: 08/29/18 16:36 Source: patient Mode of arrival: ambulatory - History of Present Illness Initial Comments: 22-year-old female who denies past medical history, A2 presenting today for chief complaint of fall. Patient states that around 14:00 she was carrying laundry up stairs carrying a basket of baby clothes when an item fell out of the basket and she slipped on it. She states she fell onto her stomach and slid down the stairs, pt is unsure of the number of stairs. She denies head injury, neck pain or back pain. Patient denies any injury to the extremities, injury to the anterior chest, bruising, lacerations, abrasions, chest pain, shortness of breath. Pt states that she has had some cramping in the abdomen and was concerning about the health of her twin babies. Patient denies any vaginal bleeding. Upon arrival pt is ambulatory, she appears well there are no signs of acute distress. VS within acceptable limits. Remainder of ROS (-), pt denies urgency, frequency, dysuria, hematuria, diarrhea, headache, visual changes, leg swelling. Pt states she is waiting for a call back from Dr. Lee for OBGYN f/u. - Related Data Home Medications Medication Instructions Recorded Confirmed No Known Home Medications 08/29/18 08/29/18 Allergies Allergy/AdvReac Type Severity Reaction Status Date / Time cephalexin monohydrate Allergy Rash/Hives Verified 08/29/18 16:23 [From Keflex] erythromycin base Allergy Rash/Hives Verified 08/29/18 16:23 [Erythromycin Base] lamotrigine [From Lamictal] Allergy Rash/Hives Verified 08/29/18 16:23 sulfamethoxazole Allergy Rash/Hives Verified 08/29/18 16:23 [From Bactrim] trimethoprim [From Bactrim] Allergy Rash/Hives Verified 08/29/18 16:23 Review of Systems ROS Statement: Those systems with pertinent positive or pertinent negative responses have been documented in the HPI. ROS Other: All systems not noted in ROS Statement are negative. Constitutional: Denies: fever, chills, night sweats ENT: Denies: ear pain, throat pain Respiratory: Denies: cough, dyspnea, wheezes, hemoptysis Cardiovascular: Denies: chest pain, palpitations, dyspnea on exertion Gastrointestinal: Reports: abdominal pain. Denies: nausea, vomiting, diarrhea, constipation, hematemesis, melena, hematochezia Genitourinary: Denies: urgency, dysuria, frequency, hematuria, discharge Musculoskeletal: Denies: back pain Skin: Denies: lesions Neurological: Denies: headache, weakness, numbness, paresthesias, confusion, abnormal gait Past Medical History Past Medical History: No Reported History Additional Past Medical History / Comment(s): Hx anxiety/depression History of Any Multi-Drug Resistant Organisms: None Reported Past Surgical History: Adenoidectomy, Tonsillectomy Additional Past Surgical History / Comment(s): abscess removed from neck Past Anesthesia/Blood Transfusion Reactions: No Reported Reaction Past Psychological History: Anxiety, Depression Smoking Status: Never smoker Past Alcohol Use History: None Reported Past Drug Use History: None Reported - Past Family History Mother Family Medical History: Hypertension General Exam - General Exam Comments Initial Comments: General: The patient is awake and alert, in no distress, and does not appear acutely ill. Eye: +3 mm pupils are equal, round and reactive to light, extra-ocular movements are intact. No nystagmus. There is normal conjunctiva bilaterally. No signs of icterus. Ears, nose, mouth and throat: There are moist mucous membranes and no oral lesions. Neck: The neck is supple, there is no tenderness or JVD. No tenderness to palpation of the cervical spine midline, or along the entire length of spine column. Pt is able to fully range at the c-spine without complaints of pain. Cardiovascular: There is a regular rate and rhythm. No murmur, rub or gallop is appreciated. Respiratory: Lungs are clear to auscultation, respirations are non-labored, breath sounds are equal. No wheezes, stridor, rales, or rhonchi. Gastrointestinal: No noted diaphoresis, jaundice, pallor, protecting postures or squirming. Symmetrical pigmentation of abdomen without signs of inflammation. Striae noted. Umbilicus mildline, inverted without swelling. No dilated veins. Abdomen contour oobese, no noted abdominal distention. No visible masses. No peristalsis , aortic pulsations, or ventral hernia. Bowel sounds audible in all 4 quadrants , unremarkable. No friction rubs or venous hums. No epigastic, hepatic or abdominal bruits. No tenderness to light or deep palpation of the RUQ/LUQ, epigastric. Pt admitted to mild pain with deep palpation of the pelvic region. Liver edge, not palpable. Spleen edge, right and left kidney not palpable. Superior bladder margin non-tender. Uterine enlargement palpable. Special Testing: Negative shifting dullness, fluid wave, Godwin, Rovsing, McBurney, Zina, cutaneous hyperesthesia. Iliopsoas and obturator tests negative bilaterally. Negative Heel Jar test/galileo sign. No CVA tenderness. Digital rectal exam deferred. Negative moore turners or cullens sign Musculoskeletal: No pain to palpation of the anterior chest wall, no evidence of trauma, No bruising of the legs or UE. Normal ROM, no tendernessof the UE and LE. Strength 5/5 equal b/l of the UE and LE. Sensation intact of the UE and LE equally b/l. DP and radial pulses equal bilaterally 2+. Neurological: A&O x 3. CN II-XII intact, There are no obvious motor or sensory deficits. Coordination appears grossly intact. Speech is normal. Skin: Skin is warm and dry and no rashes or lesions are noted. Psychiatric: Cooperative, appropriate mood & affect, normal judgment. Limitations: no limitations Course Vital Signs 08/29/18 08/29/18 16:06 19:30 Temperature 98.1 F 98.0 F Pulse Rate 90 99 Respiratory 18 20 Rate Blood Pressure 122/71 121/74 O2 Sat by Pulse 96 97 Oximetry Medical Decision Making - Medical Decision Making Well appearing 11 week female with twims presenting today for fall on abdomen, with cc of cramping. ultrasound revealed dichorionic diamniotic twin gestation, twin a is measuring 11 weeks with heart rate was 171 this is a viable intrauterine twin B heart rate 167 measuring at 10 weeks 3 days this is a viable intrauterine as well. Laboratory findings unremarkable. Ultrasound of the abdomen obtained revealing no evidence of free fluid, howver patient abdomen minimally tender on exam, with no evidence of trauma on skin exam (including extremities). Very low initial suspicion given PE findings for intraabdominal process. Discussed at length with patient about CT scan being a better imaging study to r/o acute abdominal trauma howver, pt refused CT given risks to fetus. Stating she would rather come back then to get a study that could hair babies in any form. At this time given (-) abdominal US , viable IUP, no complaints of vaginal bleeding. Improvement in cramping upon reevalatuion that pt is stable for discharge with primary care and OBGN f/u. Pt is agreeable with discharge as well as the strict return parameters discussed. Dr. Riley who I discussed the case at length with during the medical decision making process agreed with impression and plan. Pt discharged well appearing in no acute distress. - Lab Data Result diagrams: 08/29/18 16:56 08/29/18 16:56 Lab Results 08/29/18 08/29/18 08/29/18 Range/Units 16:24 16:56 16:56 WBC 7.0 (3.8-10.6) k/uL RBC 4.42 (3.80-5.40) m/uL Hgb 13.1 (11.4-16.0) gm/dL Hct 39.0 (34.0-46.0) % MCV 88.3 (80.0-100.0) fL MCH 29.7 (25.0-35.0) pg MCHC 33.6 (31.0-37.0) g/dL RDW 13.7 (11.5-15.5) % Plt Count 273 (150-450) k/uL Neutrophils % 66 % Lymphocytes % 27 % Monocytes % 4 % Eosinophils % 1 % Basophils % 0 % Neutrophils # 4.6 (1.3-7.7) k/uL Lymphocytes # 1.9 (1.0-4.8) k/uL Monocytes # 0.3 (0-1.0) k/uL Eosinophils # 0.1 (0-0.7) k/uL Basophils # 0.0 (0-0.2) k/uL Sodium (137-145) mmol/L Potassium (3.5-5.1) mmol/L Chloride (98-107) mmol/L Carbon Dioxide (22-30) mmol/L Anion Gap mmol/L BUN (7-17) mg/dL Creatinine (0.52-1.04) mg/dL Est GFR (CKD-EPI)AfAm (>60 ml/min/1.73 sqM) Est GFR (CKD-EPI)NonAf (>60 ml/min/1.73 sqM) Glucose (74-99) mg/dL Calcium (8.4-10.2) mg/dL Total Bilirubin (0.2-1.3) mg/dL AST (14-36) U/L ALT (9-52) U/L Alkaline Phosphatase (38-126) U/L Total Protein (6.3-8.2) g/dL Albumin (3.5-5.0) g/dL HCG, Quant mIU/mL Urine Color Yellow Urine Appearance Cloudy H (Clear) Urine pH 7.0 (5.0-8.0) Ur Specific [place] 1.014 (1.001-1.035) Urine Protein Negative (Negative) Urine Glucose (UA) Negative (Negative) Urine Ketones Negative (Negative) Urine Blood Negative (Negative) Urine Nitrite Negative (Negative) Urine Bilirubin Negative (Negative) Urine Urobilinogen <2.0 (<2.0) mg/dL Ur Leukocyte Esterase Large H (Negative) Urine RBC 2 (0-5) /hpf Urine WBC 84 H (0-5) /hpf Ur Squamous Epith Cells 14 H (0-4) /hpf Urine Bacteria Rare H (None) /hpf Urine Mucus Rare H (None) /hpf Blood Type O Positive Blood Type Recheck [facility] 08/29/18 Range/Units 16:56 WBC (3.8-10.6) k/uL RBC (3.80-5.40) m/uL Hgb (11.4-16.0) gm/dL Hct (34.0-46.0) % MCV (80.0-100.0) fL MCH (25.0-35.0) pg MCHC (31.0-37.0) g/dL RDW (11.5-15.5) % Plt Count (150-450) k/uL Neutrophils % % Lymphocytes % % Monocytes % % Eosinophils % % Basophils % % Neutrophils # (1.3-7.7) k/uL Lymphocytes # (1.0-4.8) k/uL Monocytes # (0-1.0) k/uL Eosinophils # (0-0.7) k/uL Basophils # (0-0.2) k/uL Sodium 135 L (137-145) mmol/L Potassium 4.0 (3.5-5.1) mmol/L Chloride 105 (98-107) mmol/L Carbon Dioxide 20 L (22-30) mmol/L Anion Gap 10 mmol/L BUN 6 L (7-17) mg/dL Creatinine 0.53 (0.52-1.04) mg/dL Est GFR (CKD-EPI)AfAm >90 (>60 ml/min/1.73 sqM) Est GFR (CKD-EPI)NonAf >90 (>60 ml/min/1.73 sqM) Glucose 83 (74-99) mg/dL Calcium 9.5 (8.4-10.2) mg/dL Total Bilirubin 0.3 (0.2-1.3) mg/dL AST 19 (14-36) U/L ALT 35 (9-52) U/L Alkaline Phosphatase 55 (38-126) U/L Total Protein 6.8 (6.3-8.2) g/dL Albumin 3.9 (3.5-5.0) g/dL HCG, Quant 142208.0 mIU/mL Urine Color Urine Appearance (Clear) Urine pH (5.0-8.0) Ur Specific [place] (1.001-1.035) Urine Protein (Negative) Urine Glucose (UA) (Negative) Urine Ketones (Negative) Urine Blood (Negative) Urine Nitrite (Negative) Urine Bilirubin (Negative) Urine Urobilinogen (<2.0) mg/dL Ur Leukocyte Esterase (Negative) Urine RBC (0-5) /hpf Urine WBC (0-5) /hpf Ur Squamous Epith Cells (0-4) /hpf Urine Bacteria (None) /hpf Urine Mucus (None) /hpf Blood Type Blood Type Recheck Disposition Clinical Impression: Fall, Abdominal cramping Disposition: HOME SELF-CARE Condition: Good Instructions: Abdominal Pain in (ED) Additional Instructions: Please follow-up with family doctor in the next 24 hours, please follow-up with Dr. Lee as scheduled. Please return to emergency room if the symptoms increase or worsen or for any other concerns, as discussed. Is patient prescribed a controlled substance at d/c from ED?: No Referrals: Robert Joya MD [Primary Care Provider] - 1-2 days Marion Lee DO [Doctor of Osteopathic Medicine] - 1-2 days Time of Disposition: 19:22
[2018-08-29 19:35] VITALS: BP 121/74; PULSE 99; RESP 20; TEMP 98
== END 2018-08-29 19:30 | disposition home or self-care (01) ==
LOC: EC 15:57
DX: O99.89 Other specified diseases and conditions complicating pregnancy, childbirth and the puerperium (principal); R10.9 Unspecified abdominal pain; O30.041 Twin pregnancy, dichorionic/diamniotic, first trimester; Z88.1 Allergy status to other antibiotic agents; Z88.2 Allergy status to sulfonamides; Z88.8 Allergy status to other drugs, medicaments and biological substances; Z3A.10 10 weeks gestation of pregnancy; W10.9XXA Fall (on) (from) unspecified stairs and steps, initial encounter; Y93.89 Activity, other specified; Y92.009 Unspecified place in unspecified non-institutional (private) residence as the place of occurrence of the external cause
CPT/HCPCS: 36415; 76705; 76801; 76802; 80053; 81001; 84702; 85025; 86900; 86901; 87086; 99284

== ENCOUNTER 2018-11-23 11:53 | Emergency (ER) | payer BC, OTHER ==
[2018-11-23] MEDS ORDERED: ALBUTEROL NEBULIZED 2.5 MG/3 ML INHALATION STA (12:21)
[2018-11-23] MEDS ORDERED: ACETAMINOPHEN TAB 500 MG TAB PO STA (12:23)
--- NOTE | 2018-11-23 12:25 | ED ---
URI HPI - General Chief Complaint: Upper Respiratory Infection Stated Complaint: Throat Pain, Cold sweats Time Seen by Provider: 11/23/18 12:13 Source: patient, RN notes reviewed, old records reviewed Mode of arrival: ambulatory Limitations: no limitations - History of Present Illness Initial Comments: Patient is a 23-year-old female presents today with her 1-year-old son. Both with upper respiratory complaints. Patient is currently 23 weeks with twin girls. Patient states that she's having no lower abdominal pain or vaginal bleeding or discharge. She denies any associated complaints. Patient states that she's had a cough and congestion for the past 3 days. No history of sick contacts besides her son that she is aware of. Patient denies any other vomiting. She reports she had a dose of Tylenol a few hours ago. - Related Data Previous Rx's Medication Instructions Recorded Albuterol Inhaler [Ventolin Hfa 1 - 2 puff INHALATION RT-Q6H PRN 11/23/18 Inhaler] #1 inhaler Amoxicillin 500 mg PO Q8H #21 capsule 11/23/18 Allergies Allergy/AdvReac Type Severity Reaction Status Date / Time cephalexin monohydrate Allergy Rash/Hives Verified 11/23/18 12:12 [From Keflex] erythromycin base Allergy Rash/Hives Verified 11/23/18 12:12 [Erythromycin Base] lamotrigine [From Lamictal] Allergy Rash/Hives Verified 11/23/18 12:12 sulfamethoxazole Allergy Rash/Hives Verified 11/23/18 12:12 [From Bactrim] trimethoprim [From Bactrim] Allergy Rash/Hives Verified 11/23/18 12:12 Review of Systems ROS Statement: Those systems with pertinent positive or pertinent negative responses have been documented in the HPI. ROS Other: All systems not noted in ROS Statement are negative. Past Medical History Past Medical History: No Reported History Additional Past Medical History / Comment(s): Hx anxiety/depression History of Any Multi-Drug Resistant Organisms: None Reported Past Surgical History: Adenoidectomy, Tonsillectomy Additional Past Surgical History / Comment(s): abscess removed from neck Past Anesthesia/Blood Transfusion Reactions: No Reported Reaction Past Psychological History: Anxiety, Depression Smoking Status: Never smoker Past Alcohol Use History: None Reported Past Drug Use History: None Reported - Past Family History Mother Family Medical History: Hypertension General Exam - General Exam Comments Initial Comments: 23-year-old female. Alert and oriented. No significant distress. Limitations: no limitations General appearance: alert, in no apparent distress Head exam: Present: atraumatic, normocephalic, normal inspection Eye exam: Present: normal appearance, PERRL, EOMI. Absent: scleral icterus, conjunctival injection, periorbital swelling ENT exam: Present: normal exam, mucous membranes moist Neck exam: Present: normal inspection. Absent: tenderness, meningismus, lymphadenopathy Respiratory exam: Present: wheezes. Absent: normal lung sounds bilaterally, respiratory distress, rales, rhonchi, stridor Cardiovascular Exam: Present: regular rate, normal rhythm, normal heart sounds. Absent: systolic murmur, diastolic murmur, rubs, gallop, clicks GI/Abdominal exam: Present: soft, normal bowel sounds. Absent: distended, tenderness, guarding, rebound, rigid Extremities exam: Present: normal inspection Back exam: Present: normal inspection Neurological exam: Present: alert, oriented X3, CN II-XII intact Psychiatric exam: Present: normal affect, normal mood Course Vital Signs 11/23/18 11/23/18 11/23/18 12:06 12:46 12:50 Temperature 98.6 F Pulse Rate 100 100 96 Respiratory 20 Rate Blood Pressure 90/63 O2 Sat by Pulse 96 Oximetry Medical Decision Making - Medical Decision Making 23-year-old female presents to return today for complaints of cough congestion and fever. She is currently 22 weeks . Patient is being seen with her sons with complaints. At this time patient's son is positive for RC. Discussed patient's likely suffering from similar virus. Patient tends chest x-ray also shows evidence of early pneumonia. Patient being concerns for Dr. nino we'll treat the Patient. At this time amoxicillin. Discussed strict parameters and close follow-up with PCP. Discussed using Tylenol and Benadryl for decongestion P for pain. Also discharged Patient with albuterol. Disposition Clinical Impression: URI (upper respiratory infection), Bronchitis Disposition: HOME SELF-CARE Condition: Good Instructions (If sedation given, give patient instructions): Upper Respiratory Infection (ED) Additional Instructions: Patient has have close follow-up with primary care provider[facility] any alarming signs or symptoms occur. Prescriptions: Amoxicillin 500 mg PO Q8H #21 capsule Albuterol Inhaler [Ventolin Hfa Inhaler] 1 - 2 puff INHALATION RT-Q6H PRN #1 inhaler PRN Reason: Shortness Of Breath Is patient prescribed a controlled substance at d/c from ED?: No Referrals: Robert Joya MD [Primary Care Provider] - 1-2 days Time of Disposition: 13:23
[2018-11-23 14:05] VITALS: BP 111/68; PULSE 102; RESP 18; TEMP 98.4
== END 2018-11-23 14:05 | disposition home or self-care (01) ==
LOC: EC 11:53
DX: O99.512 Diseases of the respiratory system complicating pregnancy, second trimester (principal); J40 Bronchitis, not specified as acute or chronic; J18.9 Pneumonia, unspecified organism; J06.9 Acute upper respiratory infection, unspecified; Z3A.22 22 weeks gestation of pregnancy; Z88.1 Allergy status to other antibiotic agents; Z88.2 Allergy status to sulfonamides; Z88.8 Allergy status to other drugs, medicaments and biological substances; Z90.89 Acquired absence of other organs
CPT/HCPCS: 94640; 99284

== ENCOUNTER 2018-12-10 16:59 | Outpatient (CLI) | payer BC, OTHER ==
[2018-12-10 18:42] VITALS: BP 118/60; PULSE 90; RESP 18; TEMP 97.3
--- NOTE | 2018-12-31 09:42 | P.MSEPDOC ---
Presenting Problems - Arrival Data Date of Arrival on Unit: 12/10/18 Time of Arrival on Unit: 16:59 Mode of Transport: Ambulatory - Complaint OB-Reason for Admission/Chief Complaint: Pain Comment: pain and cramping Medical History - Information : 3 Para: 2 Term: 2 : 0 Abortions: Spontaneous or Elective: 2 Number of Living Children: 2 - Gestational Age Gestational Age by TREVOR (wks/days): 25 Weeks and 1 Days - History Complications: Multiple Review of Systems - Review of Systems Constitutional: No problems Breast: No problems ENT: No problems Cardiovascular: No problems Respiratory: No problems Gastrointestinal: No problems Genitourinary: No problems Musculoskeletal: No problems Neurological: No problems Skin: No problems Vital Signs - Temperature Temperature: 97.3 F Temperature Source: Temporal Artery Scan - Pulse Right Brachial Pulse Rate: 90 Pulse Assessment Method: Automatic Cuff - Respirations Respiratory Rate: 18 Oxygen Delivery Method: Room Air - Blood Pressure Right Arm Blood Pressure: 118/60 Blood Pressure Mean: 79 Blood Pressure Source: Automatic Cuff Medical Screen Scoring (Pre) - Cervical Exam Dilation: Exam Deferred Effacement: Exam Deferred - Uterine Contractions Frequency: N/A Duration: N/A Intensity: N/A - Maternal Vital Signs Maternal Temperature: N/A Maternal Blood Pressure: N/A Signs of Preeclampsia: N/A Maternal Respirations: N/A - Pain Assessment Pain Scale Used: Numeric (1 - 10) Pain Intensity: 5 Pain Description: *Acute, Cramping, Pressure Pain Radiation Location: none Pain Behavior: None Exhibited, Vocalization - Maternal Trauma Maternal Trauma: N/A - Assessment Baseline FHR: 145 Heart Rate - NICHD Category: Category I (Normal) = 0 NST: Reactive Position: N/A Station: N/A - Total Score Total Score (Pre): 0 - Level of Risk Level of Risk: Low (0-5) Physician Notification (Pre) - Physician Notified Physician Notified Date: 12/10/18 Physician Notified Time: 18:00 Physician/Practitioner Notifed:: Dr. Fiore Spoke With: Dr. Fiore New Order Received: Yes - Notification Comment Comment: increase oral hydration and follow up with Dr. Lee tomorrow in the office Disposition - Disposition OB Disposition: Triage, Discharge to home, Written follow up instructions reviewed Discharge Date: 12/10/18 Discharge Time: 18:20 I agree with the RN Medical Screening Exam: No Physician's MSE Comment: Inadequate documentation Risk & Benefit of care provided described in d/c instruction: No Diagnosis: OTHER SPECIFIED COMPLICATIONS OF LABOR AND DELIVERY
== END 2018-12-10 18:20 | disposition home or self-care (01) ==
LOC: FBPOP 16:59
PROVIDERS: ATTEND Obstetrics & Gynecology
DX: O75.89 Other specified complications of labor and delivery (principal); Z3A.25 25 weeks gestation of pregnancy
CPT/HCPCS: 99213

== ENCOUNTER 2019-01-11 18:51 | Outpatient (CLI) | payer BC, OTHER ==
[2019-01-11] MEDS ORDERED: LACTATED RINGERS 1,000 ML IV SCH (19:30)
[2019-01-11] MEDS ORDERED: TERBUTALINE 1 MG/ML VIAL SQ PRN (19:32)
[2019-01-11] MEDS ORDERED: BETAMET ACET-BETAMETH SOD PHOS 6 MG/ML VIAL IM SCH (19:45)
[2019-01-11 19:55] LABS: Appearance,Urine Clear (Clear); Bacteria,Urine Rare /hpf; Bilirubin,Urine Negative (Negative); Blood,Urine Negative (Negative); Color,Urine Yellow; Glucose,Urine (UA) Negative (Negative); Ketones,Urine Negative (Negative); Leukocyte Esterase,Urine Small (Negative); Mucus,Urine Rare /hpf; Nitrite,Urine Negative (Negative); Protein,Urine Negative (Negative); Specific Gravity,Urine 1.014 (1.001-1.035); Squamous Epithelial Cell,Urine 3 /hpf (0-4); Urobilinogen,Urine <2.0 mg/dL (<2.0); WBC,Urine 2 /hpf (0-5)
--- NOTE | 2019-01-11 21:15 | US ---
EXAMINATION TYPE: US OB TV Cervical Measurement DATE OF EXAM: 01/11/2019 COMPARISON: NONE REASON FOR EXAM: Per Ordering Physician?this transvaginal scan is to assess the CERVICAL LENGTH for i ncompetence or funneling. GESTATIONAL AGE / DATING Patient is 30 weeks with twins and having contractions. MATERNAL/ SURVEY CERVICAL LENGTH (transvaginal: norm> 2.5cm): 3.5 cm Ultrasound evidence of shortened cervix? no Ultrasound evidence of funneling? no HEART RATE: Baby A, 166 bpm HEART RATE: Baby B 160 bpm RHYTHM: Normal Print out given to floor nurse at time of exam. IMPRESSION: Cervix is closed and measures 3.5 cm.
[2019-01-11 21:29] VITALS: BP 118/67; PULSE 97; RESP 16; TEMP 97.8
--- NOTE | 2019-01-12 10:18 | P.MSEPDOC ---
Presenting Problems - Arrival Data Date of Arrival on Unit: 01/11/19 Time of Arrival on Unit: 18:51 Mode of Transport: Portable - Complaint OB-Reason for Admission/Chief Complaint: Possible Onset of Labor, Rule Out SROM Medical History - Information : 3 Para: 2 Term: 2 : 0 Abortions: Spontaneous or Elective: 0 Number of Living Children: 2 - Gestational Age Gestational Age by TREVOR (wks/days): 29 Weeks and 5 Days Review of Systems - Review of Systems Constitutional: No problems Breast: No problems ENT: No problems Cardiovascular: No problems Respiratory: No problems Gastrointestinal: No problems Genitourinary: No problems Musculoskeletal: No problems Neurological: No problems Skin: No problems Vital Signs - Temperature Temperature: 97.8 F Temperature Source: Tympanic - Pulse Right Brachial Pulse Rate: 97 Pulse Assessment Method: Automatic Cuff - Respirations Respiratory Rate: 16 Oxygen Delivery Method: Room Air - Blood Pressure Right Arm Blood Pressure: 118/67 Blood Pressure Mean: 84 Blood Pressure Source: Automatic Cuff Medical Screen Scoring (Pre) - Cervical Exam Dilation: 1-3 cm = 1 Membranes: Intact - Uterine Contractions Frequency: < 36 weeks = 6 Duration: N/A Intensity: N/A - Maternal Vital Signs Maternal Temperature: N/A Maternal Blood Pressure: N/A Signs of Preeclampsia: N/A Maternal Respirations: N/A - Pain Assessment Pain Location and Character: Abdomen Pain Scale Used: Numeric (1 - 10) Pain Intensity: 5 Pain Management Goal: 2 Pain Description: *Acute Pain Radiation Location: na Pain Frequency: Intermittent Pain Duration: 2 Pain Duration Units: Minutes Pain Behavior: Vocalization Pain Aggravating Factors: None - Maternal Trauma Maternal Trauma: N/A - Assessment Baseline FHR: 145 Heart Rate - NICHD Category: Category I (Normal) = 0 NST: Reactive Position: N/A Station: N/A - Total Score Total Score (Pre): 7 - Level of Risk Level of Risk: Medium (6-9) Physician Notification (Pre) - Physician Notified Physician Notified Date: 01/11/19 Physician Notified Time: 19:22 Physician/Practitioner Notifed:: Dr. Lee Spoke With: Dr. Lee New Order Received: Yes Medical Screen Scoring (Post) - Cervical Exam Dilation: 1-3 cm = 1 Effacement: Exam Deferred Membranes: Intact - Uterine Contractions Frequency: > 5 minutes apart = 1 Duration: N/A Intensity: N/A - Maternal Vital Signs Maternal Temperature: N/A Maternal Blood Pressure: N/A Signs of Preeclampsia: N/A Maternal Respirations: N/A - Pain Assessment Pain Location and Character: Abdomen Pain Scale Used: Numeric (1 - 10) Pain Intensity: 0 Pain Management Goal: 0 - Maternal Trauma Maternal Trauma: N/A - Assessment Heart Rate: 145 Heart Rate - NICHD Category: Category I (Normal) = 0 NST: Reactive Position: N/A Station: N/A - Total Score Total Score (Post): 2 - Post Treatment Level of Risk Post Treatment Level of Risk: Low (0-5) Physician Notification (Post) - Physician Notified Physician Notified Date: 01/11/19 Physician Notified Time: 20:50 Physician/Practitioner Notified:: Dr. Lee Spoke With: Dr. Lee New Order Received: Yes - Notification Comment Comment: d/c home Disposition - Disposition OB Disposition: Discharge to home Discharge Date: 01/11/19 Discharge Time: 21:00 I agree with the RN Medical Screening Exam: Yes Risk & Benefit of care provided described in d/c instruction: Yes Diagnosis: FALSE LABOR BEFORE 37 COMPLETED WEEKS OF GEST, THIRD TRI
== END 2019-01-11 21:00 | disposition home or self-care (01) ==
LOC: FBPOP 18:51
PROVIDERS: ATTEND Obstetrics & Gynecology Obstetrics
DX: O47.03 False labor before 37 completed weeks of gestation, third trimester (principal); Z3A.29 29 weeks gestation of pregnancy
CPT/HCPCS: 59025; 99214; 96360; 96361; 84112; 82731; 81001; 76817; J3105; J0702

== ENCOUNTER → 2019-01-24 | Outpatient (CLI) | payer BC, OTHER ==
[~2019-01-24] MED LIST: LACTATED RINGERS 1,000 ML IV ONE
[2019-01-24 19:32] VITALS: BP 128/67; PULSE 103; RESP 18; TEMP 97.4
--- NOTE | 2019-02-19 07:39 | P.MSEPDOC ---
Presenting Problems - Arrival Data Date of Arrival on Unit: 01/24/19 Time of Arrival on Unit: 18:05 Mode of Transport: Wheelchair - Complaint OB-Reason for Admission/Chief Complaint: Possible Onset of Labor, Other Comment: twins Medical History - Information : 3 Para: 2 Term: 2 : 0 Abortions: Spontaneous or Elective: 0 Number of Living Children: 2 - Gestational Age Gestational Age by TREVOR (wks/days): 31 Weeks and 4 Days Review of Systems - Review of Systems Constitutional: No problems Breast: No problems ENT: No problems Cardiovascular: No problems Respiratory: No problems Gastrointestinal: No problems Genitourinary: No problems Musculoskeletal: No problems Neurological: No problems Skin: No problems Vital Signs - Temperature Temperature: 97.4 F Temperature Source: Temporal Artery Scan - Pulse Right Radial Pulse Rate: 103 Pulse Assessment Method: Automatic Cuff - Respirations Respiratory Rate: 18 Oxygen Delivery Method: Room Air - Blood Pressure Right Arm Blood Pressure: 128/67 Blood Pressure Mean: 87 Blood Pressure Source: Automatic Cuff Medical Screen Scoring (Pre) - Cervical Exam Dilation: 0 cm = 0 Effacement: Exam Deferred Membranes: Intact - Uterine Contractions Frequency: < 36 weeks = 6 Duration: N/A Intensity: N/A - Maternal Vital Signs Maternal Temperature: N/A Maternal Blood Pressure: N/A Signs of Preeclampsia: N/A Maternal Respirations: N/A - Assessment - Baby A Baseline FHR: 140 Heart Rate - NICHD Category: Category I (Normal) = 0 NST: Reactive Position: N/A Station: N/A - Total Score - Baby A Total Score - Baby A: 6 - Level of Risk - Baby A Level of Risk - Baby A: Medium (6-9) - Pain Assessment Pain Location and Character: Abdomen Pain Scale Used: Numeric (1 - 10) Pain Intensity: 6 Pain Management Goal: 2 Pain Description: Cramping Pain Frequency: Intermittent Pain Duration: 2 Pain Duration Units: Hours Pain Behavior: Vocalization Physician Notification (Pre) - Physician Notified Physician Notified Date: 01/24/19 Physician Notified Time: 18:45 Physician/Practitioner Notifed:: ruby Spoke With: ruby New Order Received: Yes (iv hydration and ffn) Medical Screen Scoring (Post) - Cervical Exam Dilation: 0 cm = 0 - Uterine Contractions Frequency: > 5 minutes apart = 1 Duration: > 40 seconds = 2 Intensity: N/A - Maternal Vital Signs Maternal Temperature: N/A Maternal Blood Pressure: N/A Signs of Preeclampsia: N/A Maternal Respirations: N/A - Pain Assessment Pain Scale Used: Numeric (1 - 10) Pain Intensity: 0 - Maternal Trauma Maternal Trauma: N/A - Assessment - Baby A Heart Rate - NICHD Category: Category I (Normal) = 0 NST: Reactive - Total Score Total Score - Baby A: 3 - Post Treatment Level of Risk Post Treatment Level of Risk - Baby A: Low (0-5) Physician Notification (Post) - Physician Notified Physician Notified Date: 01/24/19 Physician Notified Time: 20:14 Physician/Practitioner Notified:: Dr. Waller Spoke With: Dr. Waller New Order Received: Yes - Notification Comment Comment: RN reported maternal and status. Patient states she is no longer in pain. Contractions spaced out to every 5-11 minutes. Patient instructed nothing in vagina,no heavy lifting and should stay well hydrated. Patient is comfortable going home and verbalizes understanding. Disposition - Disposition OB Disposition: Discharge to home Discharge Date: 01/24/19 Discharge Time: 20:30 I agree with the RN Medical Screening Exam: Yes Risk & Benefit of care provided described in d/c instruction: Yes Diagnosis: FALSE LABOR BEFORE 37 COMPLETED WEEKS OF GEST, THIRD TRI
== END ==
LOC: FBPOP 18:02
PROVIDERS: ATTEND Obstetrics & Gynecology
DX: O47.03 False labor before 37 completed weeks of gestation, third trimester (principal); Z3A.31 31 weeks gestation of pregnancy
CPT/HCPCS: 59025; 82731; 96360; 99214

== ENCOUNTER 2019-01-27 13:20 | Outpatient (CLI) | payer BC, OTHER ==
[2019-01-27 14:37] VITALS: BP 122/68; PULSE 95; RESP 20; TEMP 97.7
[2019-01-27] MEDS ORDERED: LACTATED RINGERS 1,000 ML IV ONE (14:46)
[2019-01-27] MEDS ORDERED: LACTATED RINGERS 1,000 ML IV SCH (15:00)
[2019-01-27] MEDS: NIFEdipine 10 MG CAP PO PRN ×3 (15:15→16:01)
[2019-01-27 15:44] LABS: T4, Free (Free Thyroxine) 0.87 ng/dL (0.78-2.19)
--- NOTE | 2019-02-17 12:36 | P.MSEPDOC ---
Presenting Problems - Arrival Data Date of Arrival on Unit: 01/27/19 Time of Arrival on Unit: 13:20 Mode of Transport: Ambulatory - Complaint OB-Reason for Admission/Chief Complaint: Possible Onset of Labor, Rule Out SROM Medical History - Information : 3 Para: 2 Term: 2 : 0 Abortions: Spontaneous or Elective: 0 Number of Living Children: 2 - Gestational Age Gestational Age by TREVOR (wks/days): 32 Weeks and 0 Days - History Complications: Multiple Review of Systems - Review of Systems Constitutional: No problems Breast: No problems ENT: No problems Cardiovascular: Irregular heartbeat Respiratory: No problems Gastrointestinal: No problems Genitourinary: No problems Musculoskeletal: No problems Neurological: No problems Skin: No problems Vital Signs - Temperature Temperature: 97.7 F Temperature Source: Temporal Artery Scan - Pulse Right Supine Brachial Pulse Rate: 95 Pulse Assessment Method: Automatic Cuff - Respirations Respiratory Rate: 20 Oxygen Delivery Method: Room Air O2 Sat by Pulse Oximetry: 98 - Blood Pressure Right Arm Supine Blood Pressure: 122/68 Blood Pressure Mean: 86 Blood Pressure Source: Automatic Cuff Medical Screen Scoring (Pre) - Cervical Exam Dilation: 0 cm = 0 Membranes: Intact - Uterine Contractions Frequency: < 36 weeks = 6 Duration: > 40 seconds = 2 - Maternal Vital Signs Maternal Temperature: N/A Maternal Blood Pressure: N/A Signs of Preeclampsia: N/A - Maternal Trauma Maternal Trauma: N/A - Assessment - Baby A Baseline FHR: 145 Heart Rate - NICHD Category: Category I (Normal) = 0 NST: Reactive - Total Score - Baby A Total Score - Baby A: 8 - Level of Risk - Baby A Level of Risk - Baby A: Medium (6-9) - Pain Assessment Pain Location and Character: Back, Abdomen Pain Scale Used: Numeric (1 - 10) Pain Intensity: 4 Pain Management Goal: 5 Pain Description: *Acute Pain Radiation Location: back Pain Frequency: Intermittent Pain Duration: 4 Pain Duration Units: Hours Pain Behavior: None Exhibited Pain Aggravating Factors: Contractions Physician Notification (Pre) - Physician Notified Physician Notified Date: 01/27/19 Physician Notified Time: 13:50 Physician/Practitioner Notifed:: Dr Lee Spoke With: Dr Lee New Order Received: Yes - Notification Comment Comment: Perform vag exam and Amnisure call back with results Physician Notification (Post) - Physician Notified Physician Notified Date: 01/27/19 Physician Notified Time: 16:40 Physician/Practitioner Notified:: Dr Lee New Order Received: Yes Disposition - Disposition OB Disposition: Discharge to home, Written follow up instructions reviewed Discharge Date: 01/27/19 Discharge Time: 16:45 I agree with the RN Medical Screening Exam: Yes Risk & Benefit of care provided described in d/c instruction: Yes Diagnosis: FALSE LABOR BEFORE 37 COMPLETED WEEKS OF GEST, THIRD TRI
== END 2019-01-27 16:45 | disposition home or self-care (01) ==
LOC: FBPOP 13:20
PROVIDERS: ATTEND Obstetrics & Gynecology Obstetrics
DX: O47.03 False labor before 37 completed weeks of gestation, third trimester (principal); Z3A.32 32 weeks gestation of pregnancy
CPT/HCPCS: 59025; 84112; 84439; 84443; 96360; 96361; 96365; 99213; 99214

== ENCOUNTER 2019-01-31 12:35 | Outpatient (CLI) | payer BC, OTHER ==
[2019-01-31 14:40] VITALS: BP 120/74; PULSE 105; RESP 18; TEMP 99.2
--- NOTE | 2019-02-07 10:20 | P.MSEPDOC ---
Presenting Problems - Arrival Data Date of Arrival on Unit: 01/31/19 Time of Arrival on Unit: 12:30 Mode of Transport: Ambulatory - Complaint OB-Reason for Admission/Chief Complaint: Vaginal Bleeding Comment: states blood bright red when wiping since this am. no active bleeding. denies intercourse or vag exam.s. is on bed rest at this time ond pelvic rest due to previous contractions and celestone given x 2 doses. states previously 1 cm ext os and closed interior os at last pelvic exam several weeks ago. Medical History - Information : 3 Para: 2 Term: 2 : 0 Abortions: Spontaneous or Elective: 0 Number of Living Children: 2 - Gestational Age Gestational Age by TREVOR (wks/days): 32 Weeks and 4 Days Review of Systems - Review of Systems Constitutional: No problems Breast: No problems ENT: No problems Cardiovascular: No problems Respiratory: No problems Gastrointestinal: No problems Genitourinary: No problems Musculoskeletal: No problems Neurological: No problems Skin: No problems Vital Signs - Temperature Temperature: 99.2 F Temperature Source: Oral - Pulse Right Brachial Pulse Rate: 105 Pulse Assessment Method: Automatic Cuff - Respirations Respiratory Rate: 18 Oxygen Delivery Method: Room Air O2 Sat by Pulse Oximetry: 98 - Blood Pressure Right Arm Blood Pressure: 120/74 Blood Pressure Mean: 89 Blood Pressure Source: Automatic Cuff Medical Screen Scoring (Pre) - Cervical Exam Dilation: 0 cm = 0 Membranes: Intact - Uterine Contractions Frequency: N/A Duration: N/A Intensity: N/A - Maternal Vital Signs Maternal Temperature: N/A Maternal Blood Pressure: N/A Signs of Preeclampsia: N/A Maternal Respirations: N/A - Pain Assessment Pain Scale Used: Numeric (1 - 10) Pain Intensity: 1 Pain Description: Cramping - Maternal Trauma Maternal Trauma: N/A - Assessment Heart Rate - NICHD Category: Category I (Normal) = 0 NST: Reactive Position: N/A Station: N/A - Total Score Total Score (Pre): 0 - Level of Risk Level of Risk: Low (0-5) Physician Notification (Pre) - Physician Notified Physician Notified Date: 01/31/19 Physician Notified Time: 13:20 Spoke With: faye Baez Order Received: Yes - Notification Comment Comment: discharge home Disposition - Disposition OB Disposition: Discharge to home Discharge Date: 01/31/19 Discharge Time: 13:45 I agree with the RN Medical Screening Exam: Yes Risk & Benefit of care provided described in d/c instruction: Yes Diagnosis: SPOTTING COMPLICATING , THIRD TRIMESTER
== END 2019-01-31 13:45 | disposition home or self-care (01) ==
LOC: FBPOP 12:35
PROVIDERS: ATTEND Obstetrics & Gynecology
DX: O26.853 Spotting complicating pregnancy, third trimester (principal); Z3A.32 32 weeks gestation of pregnancy
CPT/HCPCS: 59025; 99213

== ENCOUNTER 2019-02-01 22:12 | Outpatient (CLI) | payer BC, OTHER ==
[2019-02-01 23:05] LABS: Appearance,Urine Cloudy (Clear); Bacteria,Urine Rare /hpf; Bilirubin,Urine Negative (Negative); Blood,Urine Negative (Negative); Color,Urine Yellow; Glucose,Urine (UA) Negative (Negative); Ketones,Urine Negative (Negative); Leukocyte Esterase,Urine Small (Negative); Mucus,Urine Rare /hpf; Nitrite,Urine Negative (Negative); Protein,Urine Trace (Negative); Specific Gravity,Urine 1.017 (1.001-1.035); Squamous Epithelial Cell,Urine 3 /hpf (0-4); Urobilinogen,Urine <2.0 mg/dL (<2.0); WBC,Urine 5 /hpf (0-5)
[2019-02-01] MEDS ORDERED: LACTATED RINGERS 1,000 ML IV SCH (23:15)
[2019-02-01 23:29] VITALS: BP 135/69; PULSE 99; RESP 16; TEMP 98.4
--- NOTE | 2019-02-07 10:22 | P.MSEPDOC ---
Presenting Problems - Arrival Data Date of Arrival on Unit: 02/01/19 Time of Arrival on Unit: 22:05 Mode of Transport: Ambulatory - Complaint OB-Reason for Admission/Chief Complaint: Rule Out SROM Comment: Patient states she is sigifredo every 5-10 minutes, states this is not abnormal for her. Medical History - Information : 3 Para: 2 Term: 2 : 0 Abortions: Spontaneous or Elective: 0 Number of Living Children: 2 - Gestational Age Gestational Age by TREVOR (wks/days): 32 Weeks and 5 Days - History Complications: Multiple Review of Systems - Review of Systems Constitutional: No problems Breast: No problems ENT: No problems Cardiovascular: No problems Respiratory: No problems Gastrointestinal: No problems Genitourinary: No problems Musculoskeletal: No problems Neurological: No problems Skin: No problems Vital Signs - Temperature Temperature: 98.4 F Temperature Source: Oral - Pulse Pulse Oximetery Pulse Rate: 99 Pulse Assessment Method: Auscultation - Respirations Respiratory Rate: 16 Oxygen Delivery Method: Room Air - Blood Pressure Sitting Blood Pressure: 135/69 Blood Pressure Mean: 91 Blood Pressure Source: Automatic Cuff Medical Screen Scoring (Pre) - Cervical Exam Dilation: 1-3 cm = 1 Membranes: Intact - Uterine Contractions Frequency: > 5 minutes apart = 1 Duration: > 40 seconds = 2 Intensity: N/A - Maternal Vital Signs Maternal Temperature: N/A Maternal Blood Pressure: N/A Signs of Preeclampsia: N/A Maternal Respirations: N/A - Pain Assessment Pain Scale Used: Numeric (1 - 10) Pain Intensity: 4 Pain Management Goal: 4 - Maternal Trauma Maternal Trauma: N/A - Assessment Baseline FHR: 150 Heart Rate - NICHD Category: Category I (Normal) = 0 NST: Reactive Position: N/A Station: N/A - Total Score Total Score (Pre): 4 - Level of Risk Level of Risk: Low (0-5) Physician Notification (Pre) - Physician Notified Physician Notified Date: 02/01/19 Physician Notified Time: 22:38 Physician/Practitioner Notifed:: Dr. Murphy New Order Received: Yes - Notification Comment Comment: Orally hydrate patient, collect and send UA. 2203 initiate iv access. At 2333 Orders given to discharge patient home with instructions. Disposition - Disposition OB Disposition: Discharge to home, Written follow up instructions reviewed Discharge Date: 02/01/19 Discharge Time: 23:41 I agree with the RN Medical Screening Exam: Yes Risk & Benefit of care provided described in d/c instruction: Yes Diagnosis: FALSE LABOR BEFORE 37 COMPLETED WEEKS OF GEST, THIRD TRI
== END 2019-02-01 23:41 | disposition home or self-care (01) ==
LOC: FBPOP 22:12
PROVIDERS: ATTEND Obstetrics & Gynecology
DX: O47.03 False labor before 37 completed weeks of gestation, third trimester (principal); Z3A.32 32 weeks gestation of pregnancy
CPT/HCPCS: 59025; 81001; 84112; 96360; 96365; 99214

== ENCOUNTER 2019-02-14 23:22 | Outpatient (CLI) | payer BC, OTHER ==
[2019-02-15] MEDS ORDERED: guaiFENesin SYRUP 100MG/5ML 200 MG/10 ML CUP PO ONE (00:28)
[2019-02-15 00:35] LABS: Basophils % (A) 1 %; Eosinophils # (A) 0.1 k/uL (0-0.7); Eosinophils % (A) 2 %; HCT 29.8 % (34.0-46.0); HGB 9.4 gm/dL (11.4-16.0); Hypochromasia Marked; Lymphocytes # (A) 2.3 k/uL (1.0-4.8); Lymphocytes % (A) 32 %; MCH 24.7 pg (25.0-35.0); MCHC 31.6 g/dL (31.0-37.0); MCV 78.2 fL (80.0-100.0); Mean Platelet Volume 8.2; Monocytes # (A) 0.4 k/uL (0-1.0); Monocytes % (A) 6 %; Neutrophils % (A) 57 %; Platelet Count 340 k/uL (150-450); Poikilocytosis Slight; RBC 3.82 m/uL (3.80-5.40); RDW 14.4 % (11.5-15.5)
[2019-02-15 00:37] VITALS: BP 144/71; PULSE 104; RESP 16; TEMP 97.8
[2019-02-15 00:43] LABS: ALT 12 U/L (9-52); AST 14 U/L (14-36); African American GFR (CKD) >90 (>60 ml/min/1.73 sqM); Blood Urea Nitrogen 3 mg/dL (7-17); Uric Acid 4.6 mg/dL (3.7-7.4)
[2019-02-15 01:04] LABS: Appearance,Urine Turbid (Clear); Bacteria,Urine Many /hpf; Bilirubin,Urine Negative (Negative); Blood,Urine Negative (Negative); Color,Urine Yellow; Glucose,Urine (UA) Negative (Negative); Ketones,Urine Negative (Negative); Leukocyte Esterase,Urine Moderate (Negative); Mucus,Urine Rare /hpf; Nitrite,Urine Negative (Negative); Protein,Urine Trace (Negative); RBC,Urine 1 /hpf (0-5); Specific Gravity,Urine 1.011 (1.001-1.035); Squamous Epithelial Cell,Urine 11 /hpf (0-4); Urobilinogen,Urine <2.0 mg/dL (<2.0); WBC,Urine 6 /hpf (0-5)
--- NOTE | 2019-03-22 09:52 | P.MSEPDOC ---
Presenting Problems - Arrival Data Date of Arrival on Unit: 02/14/19 Time of Arrival on Unit: 23:22 Mode of Transport: Wheelchair - Complaint OB-Reason for Admission/Chief Complaint: Headache, Visual Disturbances, Observation/Evaluation, Other Comment: Pt presents to triage with complaints of shortness of breath, pelvic pressure with contractions, headache, dizziness, and swelling. Medical History - Information : 3 Para: 2 Term: 2 : 0 Abortions: Spontaneous or Elective: 0 Number of Living Children: 2 - Gestational Age Gestational Age by TREVOR (wks/days): 34 Weeks and 5 Days - History Complications: Multiple Review of Systems - Review of Systems Constitutional: No problems Breast: No problems ENT: Cough Cardiovascular: Chest pain Respiratory: No problems Gastrointestinal: No problems Genitourinary: No problems Musculoskeletal: No problems Neurological: Dizziness Skin: No problems Vital Signs - Temperature Temperature: 97.8 F Temperature Source: Temporal Artery Scan - Pulse Pulse Oximetery Pulse Rate: 104 Pulse Assessment Method: Pulse Oximetry - Respirations Respiratory Rate: 16 Oxygen Delivery Method: Room Air O2 Sat by Pulse Oximetry: 98 - Blood Pressure Right Arm Blood Pressure: 144/71 Blood Pressure Mean: 95 Blood Pressure Source: Automatic Cuff Medical Screen Scoring (Pre) - Cervical Exam Dilation: 1-3 cm = 1 Membranes: Intact - Uterine Contractions Frequency: > 5 minutes apart = 1 Duration: N/A Intensity: N/A - Maternal Vital Signs Maternal Temperature: N/A Maternal Blood Pressure: Systolic >139 = 2 Signs of Preeclampsia: Headache = 1, Visual Disturbance = 1 Maternal Respirations: N/A - Maternal Trauma Maternal Trauma: N/A - Assessment - Baby A Baseline FHR: 150 Heart Rate - NICHD Category: Category I (Normal) = 0 NST: Reactive Position: N/A Station: N/A - Assessment - Baby B Baseline FHR: 140 Heart Rate - NICHD Category: Category I (Normal) = 0 NST: Reactive Position: N/A Station: N/A - Total Score - Baby A Total Score - Baby A: 6 - Total Score - Baby B Total Score - Baby B: 6 - Total Score - Baby C Total Score - Baby C: 6 - Level of Risk - Baby A Level of Risk - Baby A: Medium (6-9) - Level of Risk - Baby B Level of Risk - Baby B: Medium (6-9) - Level of Risk - Baby C Level of Risk - Baby C: Medium (6-9) Physician Notification (Pre) - Physician Notified Physician Notified Date: 02/15/19 Physician Notified Time: 00:11 Physician/Practitioner Notifed:: Dr Fiore New Order Received: Yes Medical Screen Scoring (Post) - Cervical Exam Dilation: Exam Deferred Effacement: Exam Deferred Membranes: Intact - Uterine Contractions Frequency: N/A Duration: N/A Intensity: N/A - Maternal Vital Signs Maternal Temperature: N/A Maternal Blood Pressure: N/A Signs of Preeclampsia: N/A Maternal Respirations: N/A - Maternal Trauma Maternal Trauma: N/A - Assessment - Baby A Heart Rate: 150 Heart Rate - NICHD Category: Category I (Normal) = 0 NST: Reactive Position: N/A Station: N/A - Assessment - Baby B Baseline - FHR: 145 Heart Rate - NICHD Category: Category I (Normal) = 0 NST: Reactive Position: N/A Station: N/A - Total Score Total Score - Baby A: 0 Total Score - Baby B: 0 Total Score - Baby C: 0 - Post Treatment Level of Risk Post Treatment Level of Risk - Baby A: Low (0-5) Post Treatment Level of Risk - Baby B: Low (0-5) Post Treatment Level of Risk - Baby C: Low (0-5) Physician Notification (Post) - Physician Notified Physician Notified Date: 02/15/19 Physician Notified Time: 01:15 Physician/Practitioner Notified:: Dr Fiore New Order Received: Yes Disposition - Disposition OB Disposition: Discharge to home Discharge Date: 02/15/19 Discharge Time: 01:20 I agree with the RN Medical Screening Exam: Yes Risk & Benefit of care provided described in d/c instruction: Yes Diagnosis: OTHER SPECIFIED COMPLICATIONS OF LABOR AND DELIVERY
== END 2019-02-15 01:20 | disposition home or self-care (01) ==
LOC: FBPOP 23:22
PROVIDERS: ATTEND Obstetrics & Gynecology
DX: O75.89 Other specified complications of labor and delivery (principal); Z3A.34 34 weeks gestation of pregnancy
CPT/HCPCS: 59025; 81001; 82565; 84450; 84460; 84520; 84550; 85025; 99215

== ENCOUNTER 2019-02-15 20:45 | Outpatient (CLI) | payer BC, OTHER ==
[2019-02-15 21:23] VITALS: TEMP 97.7
[2019-02-15] MEDS ORDERED: LACTATED RINGERS 1,000 ML IV SCH (21:30)
[2019-02-15 22:34] VITALS: BP 127/69; PULSE 93; RESP 16
--- NOTE | 2019-03-22 09:50 | P.MSEPDOC ---
Presenting Problems - Arrival Data Date of Arrival on Unit: 02/15/19 Time of Arrival on Unit: 20:45 Mode of Transport: Wheelchair - Complaint OB-Reason for Admission/Chief Complaint: Possible Onset of Labor Comment: cntrx, twin Medical History - Information : 3 Para: 2 Term: 2 : 0 Abortions: Spontaneous or Elective: 0 Number of Living Children: 2 - Gestational Age Gestational Age by TREVOR (wks/days): 34 Weeks and 5 Days - History Complications: Multiple Review of Systems - Review of Systems Constitutional: No problems Breast: No problems ENT: No problems Cardiovascular: No problems Respiratory: No problems Gastrointestinal: No problems Genitourinary: No problems Musculoskeletal: No problems Neurological: No problems Skin: No problems Vital Signs - Temperature Temperature: 97.7 F Temperature Source: Temporal Artery Scan - Pulse Right Pulse Rate: 93 Pulse Assessment Method: Pulse Oximetry - Respirations Respiratory Rate: 16 O2 Sat by Pulse Oximetry: 100 - Blood Pressure Right Arm Blood Pressure: 127/69 Blood Pressure Mean: 88 Blood Pressure Source: Automatic Cuff Medical Screen Scoring (Pre) - Cervical Exam Dilation: 1-3 cm = 1 Membranes: Intact - Uterine Contractions Frequency: < 36 weeks = 6 Duration: > 40 seconds = 2 - Maternal Vital Signs Maternal Temperature: N/A Maternal Blood Pressure: N/A Signs of Preeclampsia: N/A Maternal Respirations: N/A - Maternal Trauma Maternal Trauma: N/A - Assessment - Baby A Baseline FHR: 150 Heart Rate - NICHD Category: Category I (Normal) = 0 - Total Score - Baby A Total Score - Baby A: 9 - Total Score - Baby B Total Score - Baby B: 9 - Total Score - Baby C Total Score - Baby C: 9 - Level of Risk - Baby A Level of Risk - Baby A: Medium (6-9) - Level of Risk - Baby B Level of Risk - Baby B: Medium (6-9) - Level of Risk - Baby C Level of Risk - Baby C: Medium (6-9) Physician Notification (Pre) - Physician Notified Physician Notified Date: 02/15/19 Physician Notified Time: 21:10 Physician/Practitioner Notifed:: Dr Fiore - Notification Comment Comment: reported on c/o cntrx after walking a few blocks, fhts, cntrx pattern, unchanged SVE from yesterday, vitals. Orders to IV and orally hydrate. Call after 1 hour. Medical Screen Scoring (Post) - Cervical Exam Dilation: Exam Deferred Effacement: Exam Deferred - Uterine Contractions Frequency: < 36 weeks = 6 Duration: > 40 seconds = 2 Intensity: N/A - Maternal Vital Signs Maternal Temperature: N/A Maternal Blood Pressure: N/A Signs of Preeclampsia: N/A Maternal Respirations: N/A - Maternal Trauma Maternal Trauma: N/A - Assessment - Baby A Heart Rate: 145 Heart Rate - NICHD Category: Category I (Normal) = 0 NST: Reactive Position: N/A - Total Score Total Score - Baby A: 8 Total Score - Baby B: 8 Total Score - Baby C: 8 - Post Treatment Level of Risk Post Treatment Level of Risk - Baby A: Medium (6-9) Post Treatment Level of Risk - Baby B: Medium (6-9) Physician Notification (Post) - Physician Notified Physician Notified Date: 02/15/19 Physician Notified Time: 22:05 Physician/Practitioner Notified:: Dr Fiore - Notification Comment Comment: Reported on fhts, cntrx pattern spacing out, pts behavior more appropriate, IV hydration status, vitals WNL. Orders to d/c home with instructions, keep scheduled appt in office on Sunday, return with new or worsening sx Disposition - Disposition OB Disposition: Discharge to home Discharge Date: 02/15/19 Discharge Time: 22:17 I agree with the RN Medical Screening Exam: No Physician's MSE Comment: twin B FHTs not documented Risk & Benefit of care provided described in d/c instruction: Yes Diagnosis: FALSE LABOR BEFORE 37 COMPLETED WEEKS OF GEST, THIRD TRI
== END 2019-02-15 22:17 | disposition home or self-care (01) ==
LOC: FBPOP 20:45
PROVIDERS: ATTEND Obstetrics & Gynecology
DX: O47.03 False labor before 37 completed weeks of gestation, third trimester (principal); Z3A.34 34 weeks gestation of pregnancy
CPT/HCPCS: 59025; 96360; 96365; 99214

== ENCOUNTER 2019-03-05 12:03 | Inpatient (IN) | payer BC, OTHER ==
[2019-03-05] MEDS ORDERED: CITRIC ACID-SODIUM CITRATE 15 ML CUP PO ONE (12:31)
[2019-03-05] MEDS ORDERED: CLINDAMYCIN 900 MG in DEXTROSE 5% IN WATER 50 ML IVPB STA ×2 (12:32)
[2019-03-05 12:35] VITALS: BMI 36.9
--- NOTE | 2019-03-05 12:37 | P.HPOB ---
History of Present Illness H&P Date: 03/05/19 Chief Complaint: twin gestation 37 2/7 weeks labor, unstable lie This is a 23-year-old 3 para 2001 at 37 and 2/sevenths weeks with known twin gestation. Patient has a known diamniotic dichorionic twin gestation. Patient has been being by myself for OB visit. Patient has essentially uncomplicated care. Growth of the has been consistent. She states she started sigifredo last evening and noted the contractions to become uncomfortable this morning every 3-5 minutes. Patient was noted to be 1 cm 2 weeks ago in the office and is now /-2. Ultrasound done in the office revealed baby A to be vertex/VB be breech presentation. On blood work she had a blood type of O+, rubella immune, RPR nonreactive, B surface antigen negative, HIV negative, she had a normal gestational diabetes screen on 11/04/18 and again on 12/31/18. Group beta strep was negative on 02/17/19. Review of Systems Constitutional: Denies chills, Denies fatigue, Denies fever Ears, nose, mouth and throat: Denies headache Cardiovascular: Reports leg edema Respiratory: Denies dyspnea Gastrointestinal: Denies nausea, Denies vomiting Genitourinary: Reports Past Medical History Past Medical History: No Reported History Additional Past Medical History / Comment(s): Hx anxiety/depression History of Any Multi-Drug Resistant Organisms: None Reported Past Surgical History: Adenoidectomy, Tonsillectomy Additional Past Surgical History / Comment(s): abscess removed from neck Past Anesthesia/Blood Transfusion Reactions: No Reported Reaction Smoking Status: Never smoker - Past Family History Mother Family Medical History: Hypertension Medications and Allergies Home Medications Medication Instructions Recorded Confirmed Type Albuterol Inhaler [Ventolin Hfa 1 - 2 puff INHALATION RT-Q6H PRN 11/23/18 03/05/19 Rx Inhaler] #1 inhaler Pnv No.95/Ferrous Fum/Folic AC 1 tab PO DAILY 12/10/18 03/05/19 History [ Multivitamin Tablet] buPROPion [Wellbutrin] 75 mg PO DAILY 12/10/18 03/05/19 History NIFEdipine [Procardia] 10 mg PO TID 01/31/19 03/05/19 History Allergies Allergy/AdvReac Type Severity Reaction Status Date / Time cephalexin monohydrate Allergy Rash/Hives Verified 03/05/19 12:17 [From Keflex] erythromycin base Allergy Rash/Hives Verified 03/05/19 12:17 [Erythromycin Base] lamotrigine [From Lamictal] Allergy Rash/Hives Verified 03/05/19 12:17 sulfamethoxazole Allergy Rash/Hives Verified 03/05/19 12:17 [From Bactrim] trimethoprim [From Bactrim] Allergy Rash/Hives Verified 03/05/19 12:17 Exam Osteopathic Statement: *. No significant issues noted on an osteopathic structural exam other than those noted in the History and Physical/Consult. Intake and Output 03/04/19 03/05/19 03/05/19 22:59 06:59 14:59 Other: Weight 107.048 kg Targeted physical exam is performed and the state in general this is a well-n ourished well-developed female in obvious discomfort. She has nonlabored breathing her heart has a regular rate and rhythm her abdomen is gravid and appropriate for twin gestation, heart tones are category 1 she is sigifredo irregularly on the monitor, on cervical exam she was 4/70/-2 on ultrasound exam infant's were A vertex, B breech. Assessment and Plan (1) Twin Current Visit: Yes Status: Acute Code(s): O30.009 - TWIN , UNSP NUM PLCNTA & AMNIO SACS, UNSP TRIMESTER SNOMED Code(s): 92262256 (2) Active labor Current Visit: Yes Status: Acute Code(s): BIG9361 - SNOMED Code(s): 859499847 (3) 37 weeks gestation of Current Visit: Yes Status: Acute Code(s): Z3A.37 - 37 WEEKS GESTATION OF SNOMED Code(s): 65628557 Plan: We'll plan primary low transverse section secondary to unstable lie of baby B. Patient states understanding and wishes to proceed.
[2019-03-05] MEDS ORDERED: OXYTOCIN 10 UNIT/ML 1 ML VIAL ONE (12:44)
[2019-03-05] MEDS ORDERED: MORPHINE SULFATE (PF) 0.3 MG/0.3 ML SYR ONE (12:44)
[2019-03-05] MEDS ORDERED: LACTATED RINGERS 1,000 ML BAG IV ONE (12:44)
[2019-03-05] MEDS ORDERED: fentaNYL (PF) 50 MCG/ML 2 ML AMP ONE (12:44)
[2019-03-05] MEDS ORDERED: ONDANSETRON 4 MG/2 ML VIAL ONE (12:44)
[2019-03-05 13:07] LABS: Basophils % (A) 0 %; Eosinophils # (A) 0.1 k/uL (0-0.7); Eosinophils % (A) 1 %; HCT 30.9 % (34.0-46.0); HGB 9.9 gm/dL (11.4-16.0); Hypochromasia Moderate; Lymphocytes # (A) 2.2 k/uL (1.0-4.8); Lymphocytes % (A) 28 %; MCH 24.4 pg (25.0-35.0); MCHC 32.1 g/dL (31.0-37.0); MCV 75.9 fL (80.0-100.0); Mean Platelet Volume 10.6; Microcytosis Slight; Monocytes # (A) 0.4 k/uL (0-1.0); Monocytes % (A) 5 %; Neutrophils # (A) 5.1 k/uL (1.3-7.7); Neutrophils % (A) 64 %; Platelet Count 324 k/uL (150-450); Poikilocytosis Slight; RBC 4.07 m/uL (3.80-5.40); RDW 15.8 % (11.5-15.5); WBC 7.9 k/uL (3.8-10.6)
[2019-03-05] MEDS ORDERED: ONDANSETRON 4 MG/2 ML VIAL IVP PRN (13:17)
[2019-03-05] MEDS ORDERED: KETOROLAC 30 MG/ML 1 ML VIAL IVP PRN (13:17)
[2019-03-05] MEDS ORDERED: NALOXONE 0.4 MG/ML 1 ML VIAL IV PRN (13:17)
[2019-03-05] MEDS ORDERED: diphenhydrAMINE 50 MG/ML 1 ML VIAL IVP PRN ×3 (13:17→13:28)
[2019-03-05] MEDS ORDERED: diphenhydrAMINE 25 MG CAP PO PRN (13:28)
[2019-03-05] MEDS ORDERED: diphenhydrAMINE 50 MG CAP PO PRN (13:28)
[2019-03-05] MEDS ORDERED: METOCLOPRAMIDE 5 MG/ML 2 ML VIAL IVP PRN (13:28)
[2019-03-05] MEDS ORDERED: ACETAMINOPHEN TAB 325 MG TAB PO PRN (13:28)
[2019-03-05] MEDS ORDERED: ZOLPIDEM 5 MG TAB PO PRN (13:28)
[2019-03-05] MEDS ORDERED: OXYTOCIN 20 UNITS/1000 ML NS 1,000 ML IV SCH (13:30)
--- NOTE | 2019-03-05 13:36 | P.OP ---
Date of Procedure: 03/05/19 Preoperative Diagnosis: twin gestation 37 weeks, labor, unstable lie of baby B Postoperative Diagnosis: Same Procedure(s) Performed: Primary low transverse section Anesthesia: spinal Surgeon: Lorena Lee Inventory Control Clerk #1: Fermin Murphy Estimated Blood Loss (ml): 800 IV fluids (ml): 1,800 Urine output (ml): 200 Pathology: other (Placenta) Condition: stable Disposition: observation Indications for Procedure: Twin gestation seen in the office today on ultrasound baby A vertex baby B breech and was previous a transverse given unstable lie of baby B recommending primary . Patient also was noted contractions every 3-5 minutes and was 4 cm dilated. Operative Findings: Normal uterus tubes and ovaries were appreciated a delivered 7 lbs. 2 oz. with Apgars of 8 and 8 at one and 5 minutes respectively infant B delivered weight of 6 lbs. 1 oz. with Apgars of 6 and 8 at one and 5 minutes respectively. Description of Procedure: Patient was taken back to the operating suite where spinal anesthesia was obtained without difficulty by the anesthesia department. She was then prepped and draped in normal sterile fashion in the dorsal supine position. A Pfannenstiel skin incision was made and carried through the underlying layer of fascia. The fascia was then incised in the midline and extended laterally. The fascia was then grasped the Damaris clamps, elevated and underlying rectus muscle was dissected off sharply. This was then repeated on the inferior aspect. The rectus muscles were then in the midline the peritoneum was identified and entered. The incision was then extended. The bladder blade was then in her inserted and the vesicouterine peritoneum was identified and a bladder flap was created using sharp and blunt dissection. Hysterotomy incision was then made a was then encountered in a vertex presentation and delivered in the usual fashion the umbilical cords then doubly clamped and cut and the was handed off to awaiting RN, B was then noted amniotomy was performed clear fluid was obtained and the infant was delivered in vertex presentation and the umbilical cord was doubly clamped and cut and handed off to awaiting RN. Cord blood was then taken. The placenta was then delivered manually and the uterus was cleared of all clots and debris. The uterus was then exteriorized hysterotomy incision was then closed with 0 Vicryl in a running locked fashion 2. Hemostasis was appreciated the pelvis then copiously irrigated. Once again the hysterotomy site was visualized and hemostatic. The uterus was then returned to the abdomen. The gutters were cleared of all clots and debris. The fascial incision was then closed 0 Vicryl in a running fashion from one lateral edge the midline and the other lateral edge the midline. The subcu tissue was then irrigated and found to be hemostatic. The skin was then closed with 4-0 Vicryl in a subcuticular fashion. Steri-Strips and sterile dressings were applied as needed. Patient tolerated procedure well and was taken the recovery room awake in stable condition. All counts are correct 2.
[2019-03-05] MEDS ORDERED: ACETAMINOPHEN IV (For NPO) 1,000 MG in EMPTY BAG 1 BAG IVPB ONE (14:00)
[2019-03-05] MEDS ORDERED: IBUPROFEN IV 800 MG in SODIUM CHLORIDE 0.9% 250 ML IV ONE (14:30)
[2019-03-05] MEDS: LACTATED RINGERS 1,000 ML IV SCH (16:45)
[2019-03-06] MEDS: HYDROcodone/APAP 5-325MG 1 EACH TAB PO PRN ×4 (05:37→23:50)
--- NOTE | 2019-03-06 06:41 | P.PN ---
Progress Note - Text Progress Note Date: 03/06/19 Pt POD#1 s/p w/ spinal Duramorph. Doing well. Ambulating w/o complaints of weakness or paresthesia. Denies headache. Pruritis minimal. Pain controlled w/ PO analgesics. Puncture site clean and dry A/P POD#1 s/p w/ Duramorph - doing well
[2019-03-06 07:36] LABS: Basophils % (A) 0 %; Eosinophils # (A) 0.1 k/uL (0-0.7); Eosinophils % (A) 1 %; HCT 27.6 % (34.0-46.0); Hypochromasia Moderate; Lymphocytes # (A) 2.1 k/uL (1.0-4.8); Lymphocytes % (A) 26 %; MCH 23.5 pg (25.0-35.0); MCHC 30.5 g/dL (31.0-37.0); MCV 77.1 fL (80.0-100.0); Mean Platelet Volume 9.3; Microcytosis Slight; Monocytes # (A) 0.5 k/uL (0-1.0); Monocytes % (A) 7 %; Neutrophils # (A) 5.1 k/uL (1.3-7.7); Neutrophils % (A) 65 %; Platelet Count 238 k/uL (150-450); RBC 3.57 m/uL (3.80-5.40); RDW 15.5 % (11.5-15.5)
[2019-03-06 07:42] LABS: HGB 8.4 gm/dL (11.4-16.0)
--- NOTE | 2019-03-06 08:24 | P.PNOBGPC ---
Subjective - Subjective Principal diagnosis: POD 1 LTCS Interval history: Patient is doing well since surgery yesterday afternoon. She is ambulating without difficulty. She is awaiting a spontaneous void. Hidalgo catheter was removed and she ended up having to be straight cathed 1 at 6:30 this morning we are awaiting spontaneous void currently. Patient states her pain is controlled. She is tolerating a regular diet Patient reports: Reports appetite normal, Reports pain well controlled, Reports ambulating normally : doing well ( A at the bedside, B in the nursery on oxygen.) Objective - Vital Signs Latest vital signs: Vital Signs Temp Pulse Resp BP Pulse Ox 03/06/19 06:00 16 03/06/19 04:00 98.2 F 67 16 136/75 98 03/05/19 23:54 98.1 F 70 16 147/80 03/05/19 20:00 98.3 F 63 16 143/82 03/05/19 19:00 98 03/05/19 18:00 16 95 03/05/19 16:50 98.5 F 70 18 131/89 97 03/05/19 16:20 75 16 147/85 98 03/05/19 16:17 16 03/05/19 15:50 60 18 141/91 97 03/05/19 15:21 71 18 140/91 96 03/05/19 15:06 60 16 147/94 99 03/05/19 14:51 60 16 146/90 99 03/05/19 14:36 64 16 139/90 99 03/05/19 14:24 18 03/05/19 14:21 63 16 133/85 97 03/05/19 14:01 18 03/05/19 13:55 96.8 F L 71 18 133/77 95 03/05/19 13:30 95 03/05/19 12:16 97.6 F 94 18 144/87 Intake and Output 03/05/19 03/06/19 03/06/19 22:59 06:59 14:59 Intake Total 150 300 Output Total 1600 1850 Balance -1450 -1550 Intake: Intake, IV Titration 150 Amount Oxytocin 20 Units/1000 ml 150 Ns 1,000 ml @ Per Protocol IV .Q0M [facility] Rx#: [id number] Oral 300 Output: Urine 1400 250 Straight 250 Uretheral (Hidalgo) 600 Urine/Stool Mix 200 Estimated Blood Loss 1600 - Exam Extremities: Present: normal, edema Abdomen: Present: normal appearance, soft Incision: Present: normal, dry, intact Uterus: Present: normal, firm - Labs Labs: Abnormal Lab Results - Last 24 Hours (Table) 03/05/19 03/06/19 Range/Units 12:35 06:41 RBC 3.57 L (3.80-5.40) m/uL Hgb 9.9 L 8.4 L D (11.4-16.0) gm/dL Hct 30.9 L 27.6 L (34.0-46.0) % MCV 75.9 L 77.1 L (80.0-100.0) fL MCH 24.4 L 23.5 L (25.0-35.0) pg MCHC 30.5 L (31.0-37.0) g/dL RDW 15.8 H (11.5-15.5) % Assessment and Plan (1) Twin Current Visit: Yes Status: Acute Code(s): O30.009 - TWIN , UNSP NUM PLCNTA & AMNIO SACS, UNSP TRIMESTER SNOMED Code(s): 71859617 (2) Active labor Current Visit: Yes Status: Acute Code(s): KKM3878 - SNOMED Code(s): 182887881 (3) 37 weeks gestation of Current Visit: Yes Status: Acute Code(s): Z3A.37 - 37 WEEKS GESTATION OF SNOMED Code(s): 08949330 (4) S/P section Current Visit: Yes Status: Acute Code(s): Z98.891 - HISTORY OF UTERINE SCAR FROM PREVIOUS SURGERY SNOMED Code(s): 904846457 (5) Acute blood loss anemia Narrative/Plan: Patient was noted to be anemic prior to surgery at 9.9. Postop CBC 8.4. Current Visit: Yes Status: Acute Code(s): D62 - ACUTE POSTHEMORRHAGIC ANEMIA SNOMED Code(s): 317113966 Plan: Will continue with routine postop care, awaiting spontaneous void. Patient is encouraged to increase ambulation.
[2019-03-06] MEDS: SENNOSIDES-DOCUSATE SODIUM 1 EACH TAB PO SCH ×3 (12:36→22:34)
[2019-03-06] MEDS: buPROPion 75 MG TAB PO SCH (14:48)
[2019-03-06] MEDS: PRENATAL VIT-IRON-FOLIC ACID 1 EACH CAP PO SCH (14:48)
[2019-03-06] MEDS: LACTATED RINGERS 1,000 ML IV SCH (16:52)
[2019-03-07] MEDS: HYDROcodone/APAP 5-325MG 1 EACH TAB PO PRN ×3 (07:49→22:41)
[2019-03-07] MEDS: SENNOSIDES-DOCUSATE SODIUM 1 EACH TAB PO SCH ×2 (07:51→19:36)
[2019-03-07] MEDS: buPROPion 75 MG TAB PO SCH (09:14)
--- NOTE | 2019-03-07 13:04 | P.PNOBGPC ---
Subjective - Subjective Principal diagnosis: POD 2 LTCS twins Interval history: Patient is doing well. She is ambulating and voiding without difficulty. She is tolerating a regular diet without nausea or vomiting. She does complain of some discomfort but the pain medications are helping. She states her lochia is minimal. Patient reports: Reports appetite normal, Reports voiding normally, Reports pain well controlled, Reports ambulating normally [place]: doing well (Infant a remains in the room with mom, B is in the nursery off oxygen and they are resuming oral feeds) Objective - Vital Signs Latest vital signs: Vital Signs Temp Pulse Resp BP Pulse Ox 03/07/19 08:00 98.7 F 82 16 147/81 95 03/07/19 00:00 98.6 F 77 16 141/76 98 03/06/19 16:00 98.3 F 68 16 122/64 96 03/06/19 15:00 96 03/06/19 14:00 18 Intake and Output 03/06/19 03/07/19 03/07/19 22:59 06:59 14:59 Other: # Voids 2 2 1 - Exam Extremities: Present: normal, edema Abdomen: Present: normal appearance, soft Incision: Present: normal, dry, intact Uterus: Present: normal, firm Assessment and Plan (1) Twin Current Visit: Yes Status: Acute Code(s): O30.009 - TWIN , UNSP NUM PLCNTA & AMNIO SACS, UNSP TRIMESTER SNOMED Code(s): 49113656 (2) Active labor Current Visit: Yes Status: Acute Code(s): ZRY6757 - SNOMED Code(s): 181595871 (3) 37 weeks gestation of Current Visit: Yes Status: Acute Code(s): Z3A.37 - 37 WEEKS GESTATION OF SNOMED Code(s): 82400013 (4) S/P section Current Visit: Yes Status: Acute Code(s): Z98.891 - HISTORY OF UTERINE SCAR FROM PREVIOUS SURGERY SNOMED Code(s): 288014515 (5) Acute blood loss anemia Current Visit: Yes Status: Acute Code(s): D62 - ACUTE POSTHEMORRHAGIC ANEMIA SNOMED Code(s): 111497566 Plan: Patient continues to do well and does wish to stay as her B is in the nursery. We will continue routine post operative/ care
[2019-03-07] MEDS: IBUPROFEN 600 MG TAB PO PRN (19:37)
[2019-03-07] MEDS: PRENATAL VIT-IRON-FOLIC ACID 1 EACH CAP PO SCH (20:54)
[2019-03-08] MEDS: IBUPROFEN 600 MG TAB PO PRN ×4 (01:48→20:21)
[2019-03-08] MEDS: HYDROcodone/APAP 5-325MG 1 EACH TAB PO PRN ×3 (04:35→17:47)
--- NOTE | 2019-03-08 08:15 | P.PNOBGPC ---
Subjective - Subjective Principal diagnosis: POD 3 LTCS twins Interval history: Patient is doing better with pain control today. She is ambulating and voiding without difficulty. She is tolerating a regular diet without nausea or vomiting. Her lochia is minimal at this time. Patient reports: Reports appetite normal, Reports voiding normally, Reports pain well controlled, Reports ambulating normally : doing well Objective - Vital Signs Latest vital signs: Vital Signs Temp Pulse Resp BP 03/08/19 00:00 98.5 F 76 16 140/74 03/07/19 16:00 98.2 F 88 16 135/84 Intake and Output 03/07/19 03/08/19 03/08/19 22:59 06:59 14:59 Other: # Voids 1 1 - Exam Extremities: Present: normal, edema Abdomen: Present: normal appearance, soft Incision: Present: normal, intact Uterus: Present: normal, firm Assessment and Plan (1) Twin Current Visit: Yes Status: Acute Code(s): O30.009 - TWIN , UNSP NUM PLCNTA & AMNIO SACS, UNSP TRIMESTER SNOMED Code(s): 46332021 (2) Active labor Current Visit: Yes Status: Acute Code(s): JHF5922 - SNOMED Code(s): 334723859 (3) 37 weeks gestation of Current Visit: Yes Status: Acute Code(s): Z3A.37 - 37 WEEKS GESTATION OF SNOMED Code(s): 29900926 (4) S/P section Current Visit: Yes Status: Acute Code(s): Z98.891 - HISTORY OF UTERINE SCAR FROM PREVIOUS SURGERY SNOMED Code(s): 913832497 (5) Acute blood loss anemia Current Visit: Yes Status: Acute Code(s): D62 - ACUTE POSTHEMORRHAGIC ANEMIA SNOMED Code(s): 510129626 Plan: Encouraged increase ambulation this morning, anticipate discharge home tomorrow.
[2019-03-08] MEDS: SENNOSIDES-DOCUSATE SODIUM 1 EACH TAB PO SCH ×2 (08:26→20:21)
[2019-03-08] MEDS: PRENATAL VIT-IRON-FOLIC ACID 1 EACH CAP PO SCH (11:29)
[2019-03-08] MEDS: buPROPion 75 MG TAB PO SCH (11:29)
[2019-03-09] MEDS: HYDROcodone/APAP 5-325MG 1 EACH TAB PO PRN (04:08)
[2019-03-09] MEDS: IBUPROFEN 600 MG TAB PO PRN (08:06)
[2019-03-09 08:50] VITALS: BP 148/77; PULSE 79; RESP 18; TEMP 98.1
[2019-03-09] MEDS: SENNOSIDES-DOCUSATE SODIUM 1 EACH TAB PO SCH (08:50)
--- NOTE | 2019-03-09 10:38 | P.DS ---
Providers Date of admission: 03/05/19 12:03 Expected date of discharge: 03/09/19 Attending physician: Lorena Lee Primary care physician: Stated None - Discharge Diagnosis(es) (1) Twin Current Visit: Yes Status: Acute (2) Active labor Current Visit: Yes Status: Acute (3) 37 weeks gestation of Current Visit: Yes Status: Acute (4) S/P section Current Visit: Yes Status: Acute (5) Acute blood loss anemia Current Visit: Yes Status: Acute Hospital Course: This is a pleasant 23-year-old 3 para 2001 with known twin dye gestation that presented to labor and delivery at 37 and 3/sevenths weeks with complaints of contractions. Patient was noted to be 4 cm dilated in the office. Patient was receiving routine care with myself for further details please see the admission history and physical. Patient was taken for primary low transverse section secondary to unstable lie of twin B. Patient underwent without difficulty for further details on the please see the operative report. Patient's postoperative course has been essentially uneventful. On this postop day #4 she is ambulating and voiding without difficulty. She is tolerating a regular diet without nausea or vomiting. She states her pain is well-controlled with [place]/Motrin in combination. Her lochia is minimal at this point. She is bottle feeding. She states she is ready for discharge home. Patient Condition at Discharge: Good Plan - Discharge Summary Discharge Rx Participant: No New Discharge Prescriptions: No Action Albuterol Inhaler [Ventolin Hfa Inhaler] 1 - 2 puff INHALATION RT-Q6H PRN #1 inhaler PRN Reason: Shortness Of Breath buPROPion [Wellbutrin] 75 mg PO DAILY Pnv No.95/Ferrous Fum/Folic AC [ Multivitamin Tablet] 1 tab PO DAILY NIFEdipine [Procardia] 10 mg PO TID Discharge Medication List Albuterol Inhaler [Ventolin Hfa Inhaler] 1 - 2 puff INHALATION RT-Q6H PRN #1 inhaler 11/23/18 [Rx] Pnv No.95/Ferrous Fum/Folic AC [ Multivitamin Tablet] 1 tab PO DAILY 12/10/18 [History] buPROPion [Wellbutrin] 75 mg PO DAILY 12/10/18 [History] NIFEdipine [Procardia] 10 mg PO TID 01/31/19 [History] Follow up Appointment(s)/Referral(s): Lorena Lee DO [Doctor of Osteopathic Medicine] - 2 Weeks Patient Instructions/Handouts: (GEN) Discharge Disposition: HOME SELF-CARE
== END 2019-03-09 11:30 | disposition home or self-care (01) | DRG 787 ==
LOC: 4FBP 12:03
PROVIDERS: ADMIT Obstetrics & Gynecology Obstetrics; ATTEND Obstetrics & Gynecology Obstetrics
PROC: 10D00Z1 Extraction of Products of Conception, Low, Open Approach (ICD-10-PCS; principal; 2019-03-05 12:44)
DX: O32.1XX2 Maternal care for breech presentation, fetus 2 (principal); D62 Acute posthemorrhagic anemia; O30.043 Twin pregnancy, dichorionic/diamniotic, third trimester; Z37.2 Twins, both liveborn; O99.02 Anemia complicating childbirth; Z3A.37 37 weeks gestation of pregnancy; F32.9 Major depressive disorder, single episode, unspecified; F41.9 Anxiety disorder, unspecified; L29.9 Pruritus, unspecified; Z79.899 Other long term (current) drug therapy; Z88.1 Allergy status to other antibiotic agents; Z88.2 Allergy status to sulfonamides; Z88.8 Allergy status to other drugs, medicaments and biological substances; Z82.49 Family history of ischemic heart disease and other diseases of the circulatory system
CPT/HCPCS: 85025; 86850; 86900; 86901

== ENCOUNTER 2019-04-04 14:04 | Inpatient (IN) | payer BC, OTHER ==
[2019-04-04 15:41] LABS: ALT 9 U/L (9-52); AST 12 U/L (14-36); African American GFR (CKD) >90 (>60 ml/min/1.73 sqM); Albumin 4.4 g/dL (3.5-5.0); Alkaline Phosphatase 117 U/L (38-126); Anion Gap 14 mmol/L; Anisocytosis Slight; Basophils % (A) 0 %; Blood Urea Nitrogen 11 mg/dL (7-17); Calcium 9.6 mg/dL (8.4-10.2); Carbon Dioxide 23 mmol/L (22-30); Chloride 105 mmol/L (98-107); Eosinophils # (A) 0.2 k/uL (0-0.7); Eosinophils % (A) 2 %; Glucose 91 mg/dL (74-99); HCT 32.7 % (34.0-46.0); HGB 10.3 gm/dL (11.4-16.0); Lymphocytes # (A) 1.6 k/uL (1.0-4.8); Lymphocytes % (A) 14 %; MCH 24.6 pg (25.0-35.0); MCHC 31.5 g/dL (31.0-37.0); Microcytosis Slight; Monocytes # (A) 0.6 k/uL (0-1.0); Monocytes % (A) 6 %; Neutrophils # (A) 8.7 k/uL (1.3-7.7); Neutrophils % (A) 76 %; Non-African American GFR(CKD) >90 (>60 ml/min/1.73 sqM); Platelet Count 399 k/uL (150-450); Potassium 3.7 mmol/L (3.5-5.1); RBC 4.19 m/uL (3.80-5.40); RDW 18.9 % (11.5-15.5); Sodium 142 mmol/L (137-145); Total Bilirubin 0.4 mg/dL (0.2-1.3); Total Protein 7.3 g/dL (6.3-8.2); WBC 11.3 k/uL (3.8-10.6)
--- NOTE | 2019-04-04 15:50 | ED ---
General Adult HPI <GrantArden - Last Filed: 04/04/19 16:57> - General Source: patient, RN notes reviewed Mode of arrival: ambulatory Limitations: no limitations <Quique Martinez - Last Filed: 04/04/19 17:01> - General Chief complaint: Skin/Abscess/Foreign Body Stated complaint: mastitis Time Seen by Provider: 04/04/19 14:42 - History of Present Illness Initial comments: Mary is a 23-year-old female who presents to the emergency department for a chief complaint of mastitis. Patient states that she is 1 month. States she is not breast-feeding. States that about a week ago she started to develop erythema of the right breast as well as pain. States she was seen by her TURN OPERATOR Dr. Lee and put on dicloxacillin. She is at that time they were suspicious of a very small abscess. However patient states that redness is worsening and says is enlarging. States that she tried to call the office today but they were closing so could not see her. Sates that they recommended she c ome to the emergency department. She denies fevers or chills. She has been taking dicloxacillin as directed. Patient has no other complaints at this time including shortness of breath, chest pain, abdominal pain, nausea or vomiting, headache, or visual changes. (Quique Martinez) - Related Data Home Medications Medication Instructions Recorded Confirmed buPROPion [Wellbutrin] 75 mg PO DAILY 12/10/18 04/04/19 Allergies Allergy/AdvReac Type Severity Reaction Status Date / Time cephalexin monohydrate Allergy Rash/Hives Verified 04/04/19 16:54 [From Keflex] erythromycin base Allergy Rash/Hives Verified 04/04/19 16:54 [Erythromycin Base] lamotrigine [From Lamictal] Allergy Rash/Hives Verified 04/04/19 16:54 sulfamethoxazole Allergy Rash/Hives Verified 04/04/19 16:54 [From Bactrim] trimethoprim [From Bactrim] Allergy Rash/Hives Verified 04/04/19 16:54 Review of Systems ROS Other: All systems not noted in ROS Statement are negative. <Arden Burns - Last Filed: 04/04/19 16:57> ROS Other: All systems not noted in ROS Statement are negative. <Quique Martinez - Last Filed: 04/04/19 17:01> ROS Statement: Those systems with pertinent positive or pertinent negative responses have been documented in the HPI. Past Medical History Past Medical History: No Reported History Additional Past Medical History / Comment(s): Hx anxiety/depression History of Any Multi-Drug Resistant Organisms: None Reported Past Surgical History: Adenoidectomy, Section, Tonsillectomy Additional Past Surgical History / Comment(s): abscess removed from neck Past Anesthesia/Blood Transfusion Reactions: No Reported Reaction Past Psychological History: Anxiety, Depression Smoking Status: Never smoker Past Alcohol Use History: None Reported Past Drug Use History: None Reported - Past Family History Mother Family Medical History: Hypertension <Quique Martinez - Last Filed: 04/04/19 17:01> General Exam Limitations: no limitations General appearance: alert, in no apparent distress Head exam: Present: atraumatic, normocephalic, normal inspection Eye exam: Present: normal appearance, PERRL, EOMI. Absent: scleral icterus, conjunctival injection, periorbital swelling ENT exam: Present: normal exam, mucous membranes moist Neck exam: Present: normal inspection, full ROM. Absent: tenderness, meningismus, lymphadenopathy Respiratory exam: Present: normal lung sounds bilaterally. Absent: respiratory distress, wheezes, rales, rhonchi, stridor Cardiovascular Exam: Present: regular rate, normal rhythm, normal heart sounds. Absent: systolic murmur, diastolic murmur, rubs, gallop, clicks Neurological exam: Present: alert, oriented X3, CN II-XII intact Psychiatric exam: Present: normal affect, normal mood Skin exam: Present: other (Patient has an erythematous right breast with a 3 cm x 3 cm area of fluctuance noted superiro to the right nipple) <Quique Martinez - Last Filed: 04/04/19 17:01> Course <Arden Burns - Last Filed: 04/04/19 16:57> Vital Signs 04/04/19 14:33 Temperature 98.8 F Pulse Rate 111 H Respiratory 18 Rate Blood Pressure 124/80 O2 Sat by Pulse 99 Oximetry - Reevaluation(s) Reevaluation #1: 04/04/19 16:57 PA supervision: I proceeded [id number] evaluation the patient patient is demonstrated evidence of right sided mastitis with likely abscess. I did discuss the case with Dr. Zambrano who is covering for Dr. Joya the patient be admitted with consultation by Dr. Schultz who will be consulted (Arden Burns) Medical Decision Making - Lab Data Result diagrams: 04/04/19 15:15 04/04/19 15:15 <Arden Burns - Last Filed: 04/04/19 16:57> - Lab Data Result diagrams: 04/04/19 15:15 04/04/19 15:15 <Quique Martinez - Last Filed: 04/04/19 17:01> - Medical Decision Making Mary is a 23-year-old female 1 month who presents for mastitis. Patient is not currently breast-feeding, has been trying to pump but is not able to express milk. Patient was put on dicloxacillin 1 week ago and has been taking this as directed. Patient was seen by Dr. Lee at that time and there was concern for possible small abscess. Patient states that it seems to have been worsening throughout the week. She called today and tried to follow-up but they recommended she come to the emergency department. On exam patient does have an erythematous right breast that is warm and tender to palpation. There is also an area 3 cm x 3 cm that does have fluctuance noted and is likely an abscess. CBC does show a white blood cell count of 11.3. CMP is unremarkable. Lactic acid is 0.5. Patient was started on IV clindamycin. Dr Schultz will be co nsulted, (Quique Martinez) - Lab Data Lab Results 04/04/19 04/04/19 04/04/19 Range/Units 15:15 15:15 15:15 WBC 11.3 H (3.8-10.6) k/uL RBC 4.19 (3.80-5.40) m/uL Hgb 10.3 L (11.4-16.0) gm/dL Hct 32.7 L (34.0-46.0) % MCV 78.0 L (80.0-100.0) fL MCH 24.6 L (25.0-35.0) pg MCHC 31.5 (31.0-37.0) g/dL RDW 18.9 H (11.5-15.5) % Plt Count 399 (150-450) k/uL Neutrophils % 76 % Lymphocytes % 14 % Monocytes % 6 % Eosinophils % 2 % Basophils % 0 % Neutrophils # 8.7 H (1.3-7.7) k/uL Lymphocytes # 1.6 (1.0-4.8) k/uL Monocytes # 0.6 (0-1.0) k/uL Eosinophils # 0.2 (0-0.7) k/uL Basophils # 0.0 (0-0.2) k/uL Anisocytosis Slight Microcytosis Slight Sodium 142 (137-145) mmol/L Potassium 3.7 (3.5-5.1) mmol/L Chloride 105 (98-107) mmol/L Carbon Dioxide 23 (22-30) mmol/L Anion Gap 14 mmol/L BUN 11 (7-17) mg/dL Creatinine 0.57 (0.52-1.04) mg/dL Est GFR (CKD-EPI)AfAm >90 (>60 ml/min/1.73 sqM) Est GFR (CKD-EPI)NonAf >90 (>60 ml/min/1.73 sqM) Glucose 91 (74-99) mg/dL Plasma Lactic Acid Gomez 0.5 L (0.7-2.0) mmol/L Calcium 9.6 (8.4-10.2) mg/dL Total Bilirubin 0.4 (0.2-1.3) mg/dL AST 12 L (14-36) U/L ALT 9 (9-52) U/L Alkaline Phosphatase 117 (38-126) U/L Total Protein 7.3 (6.3-8.2) g/dL Albumin 4.4 (3.5-5.0) g/dL Disposition <Arden Burns - Last Filed: 04/04/19 16:57> Is patient prescribed a controlled substance at d/c from ED?: No Time of Disposition: 16:37 <Quique Martinez - Last Filed: 04/04/19 17:01> Clinical Impression: Mastitis, right, acute, Abscess Disposition: ADMITTED IP TO THIS HOSP Condition: Fair Referrals: Robert Joya MD [Primary Care Provider] - 1-2 days
[2019-04-04] MEDS ORDERED: MORPHINE SULFATE 4 MG/ML SYRINGE IVP STA (16:07)
[2019-04-04] MEDS ORDERED: CLINDAMYCIN 600 MG in DEXTROSE 5% IN WATER 50 ML IVPB STA ×2 (16:38)
[2019-04-04] MEDS ORDERED: SODIUM CHLORIDE 0.9% 1,000 ML IV STA (16:41)
[2019-04-04] MEDS ORDERED: MORPHINE SULFATE 2 MG/ML SYRINGE IV PRN (16:57)
[2019-04-04] MEDS ORDERED: NALOXONE 0.4 MG/ML 1 ML VIAL IV PRN (16:57)
[2019-04-04] MEDS: SODIUM CHLORIDE 0.9% 1,000 ML IV SCH ×2 (17:23→23:36)
[2019-04-04] MEDS ORDERED: ACETAMINOPHEN TAB 500 MG TAB PO STA (17:32)
[2019-04-04] MEDS: HYDROmorphone 1 MG/ML 1 ML SYRINGE IVP PRN ×2 (19:44→23:28)
[2019-04-04] MEDS ORDERED: TEMAZEPAM 15 MG CAP PO PRN (20:27)
[2019-04-04] MEDS ORDERED: ALPRAZolam 0.25 MG TAB PO PRN (20:27)
--- NOTE | 2019-04-04 22:09 | HP ---
HISTORY AND PHYSICAL I am covering for Dr. Joya. DATE OF SERVICE: 04/04/2019 CHIEF COMPLAINT: Right breast pain and swelling. HISTORY OF PRESENT ILLNESS: This 23-year-old woman who recently had twin babies with a past medical history of anxiety, depression, adenoidectomy, section, being followed by Dr. Joya in the outpatient setting, was complaining of the pain and swelling of the right breast. The patient is 1 month . Patient is not and there is some erythema and swelling was noted and patient was started on dicloxacillin. Because of lack of improvement and significant swelling and pain, patient came to [facility] and was admitted for further evaluation and treatment. There is no history of fever, rigors or chills. No history of headache, loss of consciousness, seizures. PAST MEDICAL HISTORY: History of anxiety, depression, history of recent delivery, section, tonsillectomy, adenoidectomy. MEDICATIONS: Home medications are Wellbutrin 75 p.o. daily. ALLERGIES: CEPHALEXIN, ERYTHROMYCIN, LAMICTAL, BACTRIM. FAMILY HISTORY: History of hypertension in the family. SOCIAL HISTORY: No history of smoking. No history of alcohol. REVIEW OF SYSTEMS: ENT: No diminished hearing. No diminished vision. CARDIOVASCULAR: No angina or palpitations. RESPIRATION: No cough. No hemoptysis. GI no nausea or vomiting. as mentioned earlier. CENTRAL NERVOUS SYSTEM: No numbness or weakness. ALLERGY/IMMUNOLOGY: No asthma or hayfever. MUSCULOSKELETAL: As mentioned earlier. HEMATOLOGY/ONCOLOGY: No history of anemia. ENDOCRINE: No history of diabetes or hypothyroidism. CONSTITUTIONAL: As mentioned earlier. DERMATOLOGY as mentioned earlier. RHEUMATOLOGY negative. PSYCHIATRY as mentioned earlier. PHYSICAL EXAM: Patient is alert, oriented x3. Pulse is 96. Blood pressure 130/88, respiration 18. T- max is 101.4, pulse ox 98% on room air. HEENT: Conjunctivae normal. Oral mucosa moist. NECK is no jugular venous distention. No carotid bruit. No lymph node enlargement. CARDIOVASCULAR: S1, S2. No S3, no S4. RESPIRATORY: Breath sounds diminished in the bases. No rhonchi. No crackles. ABDOMEN: Soft, nontender. No mass palpable. LEGS: No edema. No swelling. NERVOUS SYSTEM: Higher functions as mentioned earlier. Moves all 4 limbs. No focal motor or sensory deficit. LYMPHATICS: No lymph nodes palpable in the neck, axillae or groin. SKIN: No ulcers, rashes or bleeding. JOINTS: No active deforming arthropathy. Otherwise, examination of the right breast significant swelling, erythema, tenderness with fluctuation present around the areola present suggestive of breast abscess. LABS: WBC 11.2, hemoglobin 10.3. Other labs are noted. ASSESSMENT: 1. Acute right breast abscess with possible sepsis, present on admission. 2. Increased WBC. 3. Anemia secondary to recent . 4. History of anxiety, depression. 5. History of adenoidectomy. 6. History of tonsillectomy. 7. History of section. 8. History of neck abscess. RECOMMENDATIONS AND DISCUSSION: In this 23-year-old woman who presented with multiple medical issues, at this time I recommend to continue current medications, symptomatic treatment. We will initiate broad-spectrum IV antibiotics. I would also recommend infectious Disease and surgical evaluation. The patient will definitely need incision and drainage. Otherwise symptomatic treatment and pain management will be also given. Prognosis guarded because of multiple complex medical issues. A copy of this dictation being forwarded to Dr. Joya who is the primary physician. MMODL / IJN: [id number] /
[2019-04-04 23:25] VITALS: BMI 30.7
[2019-04-04] MEDS: HEPARIN SODIUM,PORCINE 5,000 UNIT/ML 1 ML VIAL SQ SCH (23:29)
[2019-04-05] MEDS: CLINDAMYCIN 600 MG in DEXTROSE 5% IN WATER 50 ML IVPB SCH ×8 (00:40→23:24)
[2019-04-05] MEDS: HYDROmorphone 1 MG/ML 1 ML SYRINGE IVP PRN ×4 (02:52→20:06)
[2019-04-05 07:03] LABS: Appearance,Urine Clear (Clear); Bilirubin,Urine Negative (Negative); Blood,Urine Negative (Negative); Color,Urine Yellow; Glucose,Urine (UA) Negative (Negative); Ketones,Urine 1+ (Negative); Leukocyte Esterase,Urine Negative (Negative); Nitrite,Urine Negative (Negative); PH, Urine 5.5 (5.0-8.0); Protein,Urine Negative (Negative); Specific Gravity,Urine 1.015 (1.001-1.035); Urobilinogen,Urine <2.0 mg/dL (<2.0)
[2019-04-05 08:06] LABS: Anisocytosis Slight; Basophils % (A) 0 %; Eosinophils % (A) 0 %; HCT 31.3 % (34.0-46.0); HGB 9.8 gm/dL (11.4-16.0); Hypochromasia Slight; Lymphocytes # (A) 1.5 k/uL (1.0-4.8); Lymphocytes % (A) 12 %; MCH 24.7 pg (25.0-35.0); MCHC 31.2 g/dL (31.0-37.0); Mean Platelet Volume 6.9; Microcytosis Slight; Monocytes # (A) 0.5 k/uL (0-1.0); Monocytes % (A) 4 %; Neutrophils # (A) 9.8 k/uL (1.3-7.7); Neutrophils % (A) 82 %; Platelet Count 384 k/uL (150-450); RBC 3.97 m/uL (3.80-5.40); RDW 18.9 % (11.5-15.5); WBC 11.9 k/uL (3.8-10.6)
[2019-04-05 08:42] LABS: African American GFR (CKD) >90 (>60 ml/min/1.73 sqM); Anion Gap 12 mmol/L; Blood Urea Nitrogen 8 mg/dL (7-17); Calcium 8.9 mg/dL (8.4-10.2); Carbon Dioxide 22 mmol/L (22-30); Chloride 107 mmol/L (98-107); Glucose 74 mg/dL (74-99); Non-African American GFR(CKD) >90 (>60 ml/min/1.73 sqM); Sodium 141 mmol/L (137-145)
[2019-04-05] MEDS: PANTOPRAZOLE 40 MG TABLET PO SCH (09:07)
[2019-04-05] MEDS: HEPARIN SODIUM,PORCINE 5,000 UNIT/ML 1 ML VIAL SQ SCH ×2 (09:07→20:08)
[2019-04-05] MEDS: buPROPion 75 MG TAB PO SCH (09:07)
[2019-04-05] MEDS ORDERED: KETOROLAC 30 MG/ML 1 ML VIAL IVP STA (11:07)
[2019-04-05] MEDS ORDERED: HYDROmorphone 1 MG/ML 1 ML SYRINGE IVP STA (11:07)
--- NOTE | 2019-04-05 11:55 | P.GSCN ---
History of Present Illness Consult date: 04/05/19 Reason for Consult: Breast abscess History of present illness: 23-year-old female recently gave via approximately one month ago . Patient has not been breast-feeding. She is no longer engorged. Over the last several days patient has had increased pain and swelling beneath the right nipple. No history of similar events. She was on outpatient dicloxacillin. Symptoms were not improving. She came to the hospital for evaluation. No imaging was obtained. White blood cell count 11.9. Review of Systems The patient denies any acute changes in vision or hearing, no dysphagia or odynophagia, no chest pain or shortness of breath, no dysuria or hematuria, no headache, no runny nose, no rectal bleeding or melena, no unexplained weight loss Past Medical History Past Medical History: No Reported History Additional Past Medical History / Comment(s): Hx anxiety/depression History of Any Multi-Drug Resistant Organisms: None Reported Past Surgical History: Adenoidectomy, Section, Tonsillectomy Additional Past Surgical History / Comment(s): abscess removed from neck Past Anesthesia/Blood Transfusion Reactions: No Reported Reaction Past Psychological History: Anxiety, Depression Smoking Status: Never smoker Past Alcohol Use History: None Reported Past Drug Use History: None Reported - Past Family History Mother Family Medical History: Hypertension Medications and Allergies Home Medications Medication Instructions Recorded Confirmed Type buPROPion [Wellbutrin] 75 mg PO DAILY 12/10/18 04/04/19 History Allergies Allergy/AdvReac Type Severity Reaction Status Date / Time cephalexin monohydrate Allergy Rash/Hives Verified 04/04/19 16:54 [From Keflex] erythromycin base Allergy Rash/Hives Verified 04/04/19 16:54 [Erythromycin Base] lamotrigine [From Lamictal] Allergy Rash/Hives Verified 04/04/19 16:54 sulfamethoxazole Allergy Rash/Hives Verified 04/04/19 16:54 [From Bactrim] trimethoprim [From Bactrim] Allergy Rash/Hives Verified 04/04/19 16:54 Surgical - Exam Vital Signs Temp Pulse Resp BP Pulse Ox 98.8 F 111 H 18 124/80 99 04/04/19 14:33 04/04/19 14:33 04/04/19 14:33 04/04/19 14:33 04/04/19 14:33 Physical exam: General: Well-developed, well-nourished HEENT: Normocephalic, sclerae nonicteric Abdomen: Nontender, nondistended Extremities: No edema Neuro: Alert and oriented Right breast: Erythematous induration centrally spanning 12 cm, area of fluctuance with skin ischemic changes periareolar between 12 and 2:00, exquisite tenderness in that region Results - Labs 04/05/19 07:31 04/05/19 07:31 Abnormal Lab Results - Last 24 Hours (Table) 04/04/19 04/04/19 04/04/19 Range/Units 15:15 15:15 15:15 WBC 11.3 H (3.8-10.6) k/uL Hgb 10.3 L (11.4-16.0) gm/dL Hct 32.7 L (34.0-46.0) % MCV 78.0 L (80.0-100.0) fL MCH 24.6 L (25.0-35.0) pg RDW 18.9 H (11.5-15.5) % Neutrophils # 8.7 H (1.3-7.7) k/uL Creatinine (0.52-1.04) mg/dL Plasma Lactic Acid Gomez 0.5 L (0.7-2.0) mmol/L AST 12 L (14-36) U/L Urine Ketones (Negative) 04/05/19 04/05/19 04/05/19 Range/Units 06:30 07:31 07:31 WBC 11.9 H (3.8-10.6) k/uL Hgb 9.8 L (11.4-16.0) gm/dL Hct 31.3 L (34.0-46.0) % MCV 79.0 L (80.0-100.0) fL MCH 24.7 L (25.0-35.0) pg RDW 18.9 H (11.5-15.5) % Neutrophils # 9.8 H (1.3-7.7) k/uL Creatinine 0.50 L (0.52-1.04) mg/dL Plasma Lactic Acid Gomez (0.7-2.0) mmol/L AST (14-36) U/L Urine Ketones 1+ H (Negative) Diabetes panel 04/04/19 04/05/19 Range/Units 15:15 07:31 Sodium 142 141 (137-145) mmol/L Potassium 3.7 4.0 (3.5-5.1) mmol/L Chloride 105 107 (98-107) mmol/L Carbon Dioxide 23 22 (22-30) mmol/L BUN 11 8 (7-17) mg/dL Creatinine 0.57 0.50 L (0.52-1.04) mg/dL Glucose 91 74 (74-99) mg/dL Calcium 9.6 8.9 (8.4-10.2) mg/dL AST 12 L (14-36) U/L ALT 9 (9-52) U/L Alkaline Phosphatase 117 (38-126) U/L Total Protein 7.3 (6.3-8.2) g/dL Albumin 4.4 (3.5-5.0) g/dL Calcium panel 04/04/19 04/05/19 Range/Units 15:15 07:31 Calcium 9.6 8.9 (8.4-10.2) mg/dL Albumin 4.4 (3.5-5.0) g/dL Pituitary panel 04/04/19 04/05/19 Range/Units 15:15 07:31 Sodium 142 141 (137-145) mmol/L Potassium 3.7 4.0 (3.5-5.1) mmol/L Chloride 105 107 (98-107) mmol/L Carbon Dioxide 23 22 (22-30) mmol/L BUN 11 8 (7-17) mg/dL Creatinine 0.57 0.50 L (0.52-1.04) mg/dL Glucose 91 74 (74-99) mg/dL Calcium 9.6 8.9 (8.4-10.2) mg/dL Adrenal panel 04/04/19 04/05/19 Range/Units 15:15 07:31 Sodium 142 141 (137-145) mmol/L Potassium 3.7 4.0 (3.5-5.1) mmol/L Chloride 105 107 (98-107) mmol/L Carbon Dioxide 23 22 (22-30) mmol/L BUN 11 8 (7-17) mg/dL Creatinine 0.57 0.50 L (0.52-1.04) mg/dL Glucose 91 74 (74-99) mg/dL Calcium 9.6 8.9 (8.4-10.2) mg/dL Total Bilirubin 0.4 (0.2-1.3) mg/dL AST 12 L (14-36) U/L ALT 9 (9-52) U/L Alkaline Phosphatase 117 (38-126) U/L Total Protein 7.3 (6.3-8.2) g/dL Albumin 4.4 (3.5-5.0) g/dL Assessment and Plan (1) Abscess of right breast Narrative/Plan: 23-year-old female with impressive abscess right breast. Patient has overlying ischemic skin changes currently. This is not an abscess that would respond to percutaneous drainage alone. Will proceed with surgical incision and drainage. Risks of bleeding, infection, need for balloon formation, poor healing, dimpling, scarring, recurrence reviewed. She understands and wishes to proceed. Current Visit: Yes Status: Acute Code(s): N61.1 - ABSCESS OF THE BREAST AND NIPPLE SNOMED Code(s): 80424200
[2019-04-05] MEDS ORDERED: MIDAZOLAM 2 MG/2 ML VIAL ONE (14:27)
[2019-04-05] MEDS ORDERED: fentaNYL (PF) 50 MCG/ML 2 ML AMP ONE (14:27)
[2019-04-05] MEDS ORDERED: PROPOFOL 10 MG/ML 20 ML VIAL IV ONE (14:27)
[2019-04-05] MEDS ORDERED: LIDOCAINE 1% INJ 10MG/ML (20 ML MDV) ONE (14:27)
[2019-04-05] MEDS ORDERED: LACTATED RINGERS 1,000 ML IV ONE (14:30)
--- NOTE | 2019-04-05 14:57 | P.OP ---
Date of Procedure: 04/05/19 Procedure(s) Performed: PREOPERATIVE DIAGNOSIS: Right breast abscess POSTOPERATIVE DIAGNOSIS: Same PROCEDURE: Surgeon and drainage with debridement right breast abscess SURGEON: Antoine EBL: 5 mL ANESTHESIA: Gen. COMPLICATIONS: None OPERATIVE PROCEDURE: Patient placed in the operative table in the supine posi tion. Patient placed under general anesthesia. Right breast prepped and draped sterilely. In the process of prepping the breast a small opening through the necrotic skin was made and purulent fluid was draining spontaneously. An elliptical incision was then made in the area Keren border between 11 and 2:00. Entrance into a abscess cavity measuring approximately [address] Cultures were taken of the purulent fluid. Area was irrigated with saline. No further purulence was seen. The skin and superficial subcutaneous tissues at 1:00 on the breast side was debrided sharply in an excisional matter where it was necrotic. Cavity was packed with half-inch iodoform gauze. Sterile outer dressings applied. DISPOSITION: Stable to recovery room
[2019-04-05] MEDS: HYDROmorphone 1 MG/ML 1 ML SYRINGE IVP ONE ×2 (15:08→15:14)
[2019-04-05] MEDS ORDERED: KETOROLAC 30 MG/ML 1 ML VIAL IVP ONE (15:08)
[2019-04-05] MEDS: SODIUM CHLORIDE 0.9% 1,000 ML IV SCH (16:05)
--- NOTE | 2019-04-05 21:37 | PN ---
PROGRESS NOTE DATE OF SERVICE: 04/05/2019. This 23-year-old woman was admitted after right breast abscess, underwent incision and drainage by Dr. Schultz. The patient is slightly drowsy after surgery. No chest pain. No palpitations. No fever. EXAM: Alert and oriented x3. Arousable. Pulse 93, blood pressure 120/82, respiration 16, temperature normal, pulse ox 93% on room air. HEENT: Conjunctivae normal. NECK: No jugular venous distention. CARDIOVASCULAR: S1, S2. RESPIRATORY: Breath sounds diminished in the bases. No rhonchi. ABDOMEN: Soft, nontender. NERVOUS SYSTEM: No focal deficits. Examination of the right breast: Status post I and D. LABS: WBC 11.9 and hemoglobin 9.8. ASSESSMENT: 1. Acute right breast abscess with possible sepsis present on admission status post incision and drainage. 2. Increased WBC. 3. Anemia secondary to recent . 4. History of anxiety, depression. 5. History of adenoidectomy. 6. History of tonsillectomy. 7. History of section. 8. History of neck abscess. RECOMMENDATIONS AND DISCUSSION: I recommend to continue current management, continue with monitoring, continue with symptomatic treatment. Continue with antibiotics. Otherwise repeat labs. Closely follow and follow with Dr. Schultz and Infectious Disease. Otherwise, continue to monitor. Further recommendations to follow. MMODL / IJN: [id number] /
[2019-04-06] MEDS: HYDROmorphone 1 MG/ML 1 ML SYRINGE IVP PRN ×2 (04:07→11:37)
[2019-04-06] MEDS: SODIUM CHLORIDE 0.9% 1,000 ML IV SCH (06:33)
[2019-04-06] MEDS: PANTOPRAZOLE 40 MG TABLET PO SCH (07:47)
[2019-04-06 08:47] LABS: Anisocytosis Slight; Basophils % (A) 1 %; Eosinophils # (A) 0.2 k/uL (0-0.7); Eosinophils % (A) 3 %; HCT 29.6 % (34.0-46.0); HGB 9.1 gm/dL (11.4-16.0); Lymphocytes # (A) 2.2 k/uL (1.0-4.8); Lymphocytes % (A) 31 %; MCH 24.1 pg (25.0-35.0); MCHC 30.6 g/dL (31.0-37.0); MCV 78.7 fL (80.0-100.0); Mean Platelet Volume 7.5; Microcytosis Slight; Monocytes # (A) 0.3 k/uL (0-1.0); Monocytes % (A) 4 %; Neutrophils # (A) 4.3 k/uL (1.3-7.7); Neutrophils % (A) 60 %; Platelet Count 347 k/uL (150-450); RBC 3.76 m/uL (3.80-5.40); RDW 18.8 % (11.5-15.5); WBC 7.1 k/uL (3.8-10.6)
[2019-04-06 08:58] LABS: African American GFR (CKD) >90 (>60 ml/min/1.73 sqM); Anion Gap 8 mmol/L; Blood Urea Nitrogen 9 mg/dL (7-17); Calcium 8.5 mg/dL (8.4-10.2); Carbon Dioxide 25 mmol/L (22-30); Chloride 105 mmol/L (98-107); Glucose 113 mg/dL (74-99); Non-African American GFR(CKD) >90 (>60 ml/min/1.73 sqM); Potassium 3.9 mmol/L (3.5-5.1); Sodium 138 mmol/L (137-145)
[2019-04-06] MEDS: KETOROLAC 30 MG/ML 1 ML VIAL IVP PRN ×2 (09:25→16:10)
[2019-04-06] MEDS: CLINDAMYCIN 600 MG in DEXTROSE 5% IN WATER 50 ML IVPB SCH ×4 (09:27→16:12)
--- NOTE | 2019-04-06 10:01 | P.PN ---
Subjective Progress Note Date: 04/06/19 Principal diagnosis: Right breast abscess Patient says her pain is improved today. White blood cell count normal. Gram stain shows gram-positive cocci. She is afebrile. Objective - Vital Signs Vital signs: Vital Signs Temp 98.2 F 04/06/19 00:00 Pulse 85 04/06/19 00:00 Resp 18 04/06/19 00:00 BP 122/81 04/06/19 00:00 Pulse Ox 94 L 04/06/19 00:00 Intake & Output 04/05/19 04/06/19 04/06/19 18:59 06:59 18:59 Intake Total 650 920 Output Total 5 Balance 645 920 Intake: IV 650 Oral 920 Output: Estimated Blood Loss 5 Other: # Voids 1 - Exam Right breast wound with persistent erythema and tenderness, minimal serosanguineous drainage - Labs CBC & Chem 7: 04/06/19 08:36 04/06/19 08:32 Labs: Abnormal Lab Results - Last 24 Hours (Table) 04/06/19 04/06/19 Range/Units 08:32 08:36 RBC 3.76 L (3.80-5.40) m/uL Hgb 9.1 L (11.4-16.0) gm/dL Hct 29.6 L (34.0-46.0) % MCV 78.7 L (80.0-100.0) fL MCH 24.1 L (25.0-35.0) pg MCHC 30.6 L (31.0-37.0) g/dL RDW 18.8 H (11.5-15.5) % Creatinine 0.51 L (0.52-1.04) mg/dL Glucose 113 H (74-99) mg/dL Microbiology - Last 24 Hours (Table) 04/05/19 14:45 Gram Stain - Preliminary Breast - Right Wound Culture - Preliminary 04/05/19 14:45 Anaerobic Culture - Preliminary Breast - Right 04/04/19 15:15 Blood Culture - Preliminary Blood No Growth after 24 hours Assessment and Plan (1) Abscess of right breast Narrative/Plan: Patient doing better since incision and drainage. Synovitis/mastitis persists. Resume diet. Remove packing and repack with Aquacel silver rope. Continue antibiotics. Await final cultures. Current Visit: Yes Status: Acute Code(s): N61.1 - ABSCESS OF THE BREAST AND NIPPLE SNOMED Code(s): 44409111
[2019-04-06] MEDS: buPROPion 75 MG TAB PO SCH (10:25)
[2019-04-06] MEDS: HEPARIN SODIUM,PORCINE 5,000 UNIT/ML 1 ML VIAL SQ SCH ×2 (10:25→20:49)
[2019-04-06] MEDS ORDERED: VANCOMYCIN IV PER PHARMACY 1 EACH MISC MISCELLANE PRN (17:19)
--- NOTE | 2019-04-06 17:21 | P.CONS ---
History of Present Illness - Reason for Consult Consult date: 04/05/19 Right breast abscess Requesting physician: Bayron Zambrano - Chief Complaint Right breast pain swelling 1 week - History of Present Illness Patient is a 23-year-old female who is 1 month not breast- feeding started having pain swelling and redness of the right breast area started about a week ago the patient has been evaluated by her [employer] and the patient was started on dicloxacillin, however the patient did not have any improvement the patient did have worsening pain swelling and redness, patient described the pain to be probably almost 7-8 out of 10 and no radiation she did have mild purulent drainage from the area that concerned her and she presented to [facility] ER with the patient was evaluated by the ER physician, patient did have a fever of 101.4F she was mildly tachycardic and did have elevated white count of 11.5, patient was diagnosed with right breast abscess and cellulitis subsequently evaluated by general surgery patient was taken to the OR and status post drainage of the right breast abscess infection disease was consulted for further recommendation regarding antibiotic therapy Review of Systems CONSTITUTIONAL: Positive for weakness. Fever EYES: No complaint. ENT:No complaint. RESPIRATORY: No complaint. CARDIOVASCULAR: No complaint. GENITOURINARY: No complaint. GASTROINTESTINAL: No complaint. MUSCULOSKELETAL: No complaint. INTEGUMENTARY: As per history of present illness PSYCHOLOGICAL: No complaint. ENDOCRINE: No complaint. NEUROLOGIC: No complaint. Past Medical History Past Medical History: No Reported History Additional Past Medical History / Comment(s): Hx anxiety/depression History of Any Multi-Drug Resistant Organisms: None Reported Past Surgical History: Adenoidectomy, Section, Tonsillectomy Additional Past Surgical History / Comment(s): abscess removed from neck Past Anesthesia/Blood Transfusion Reactions: No Reported Reaction Past Psychological History: Anxiety, Depression Smoking Status: Never smoker Past Alcohol Use History: None Reported Past Drug Use History: None Reported - Past Family History Mother Family Medical History: Hypertension Medications and Allergies Home Medications Medication Instructions Recorded Confirmed Type buPROPion [Wellbutrin] 75 mg PO DAILY 12/10/18 04/04/19 History Allergies Allergy/AdvReac Type Severity Reaction Status Date / Time cephalexin monohydrate Allergy Rash/Hives Verified 04/04/19 16:54 [From Keflex] erythromycin base Allergy Rash/Hives Verified 04/04/19 16:54 [Erythromycin Base] lamotrigine [From Lamictal] Allergy Rash/Hives Verified 04/04/19 16:54 sulfamethoxazole Allergy Rash/Hives Verified 04/04/19 16:54 [From Bactrim] trimethoprim [From Bactrim] Allergy Rash/Hives Verified 04/04/19 16:54 Physical Exam Vitals: Vital Signs Temp Pulse Pulse Pulse Resp BP BP 04/05/19 15:32 92 18 132/74 04/05/19 15:17 93 16 134/75 04/05/19 15:00 97.4 F L 94 14 136/75 04/05/19 09:26 99.9 F H 110 H 20 115/73 04/05/19 08:50 99.9 F H 110 H 20 115/73 04/05/19 06:45 99.1 F 98 18 130/78 04/04/19 23:30 98.5 F 103 H 18 124/84 04/04/19 18:58 99.6 F 101 H 20 131/84 04/04/19 18:31 99.2 F 96 18 130/80 04/04/19 17:28 101.4 F H 98 20 135/86 Pulse Ox 04/05/19 15:32 96 04/05/19 15:17 94 L 04/05/19 15:00 96 04/05/19 09:26 92 L 04/05/19 08:50 95 04/05/19 06:45 98 04/04/19 23:30 98 04/04/19 18:58 100 04/04/19 18:31 98 04/04/19 17:28 99 Intake and Output 04/05/19 04/05/19 04/05/19 06:59 14:59 22:59 Intake Total 0 300 350 Output Total 5 Balance 0 295 350 Intake: IV 300 350 Oral 0 Output: Estimated Blood Loss 5 Other: # Voids 1 GENERAL DESCRIPTION: Middle-aged female lying in bed, no distress. No tachypnea or accessory muscle of respiration use. HEENT: Shows Pallor , no scleral icterus. Oral mucous membrane is dry. No pharyngeal erythema or thrush NECK: Trachea central, no thyromegaly. LUNGS: Unlabored breathing. Clear to auscultation anteriorly. No wheeze or crackle. HEART: S1, S2, regular rate and rhythm. No loud murmur ABDOMEN: Soft, no tenderness , guarding or rigidity, no organomegaly EXTREMITIES: No edema of feet. SKIN: No rash, no masses palpable. NEUROLOGICAL: The patient is awake, alert, oriented x3, mood and affect normal. Results CBC & Chem 7: 04/06/19 08:36 04/06/19 08:32 Labs: Abnormal Lab Results - Last 24 Hours (Table) 04/05/19 04/05/19 04/05/19 Range/Units 06:30 07:31 07:31 WBC 11.9 H (3.8-10.6) k/uL Hgb 9.8 L (11.4-16.0) gm/dL Hct 31.3 L (34.0-46.0) % MCV 79.0 L (80.0-100.0) fL MCH 24.7 L (25.0-35.0) pg RDW 18.9 H (11.5-15.5) % Neutrophils # 9.8 H (1.3-7.7) k/uL Creatinine 0.50 L (0.52-1.04) mg/dL Urine Ketones 1+ H (Negative) Assessment and Plan Assessment: 1-patient doesn't Hospital with sepsis in this patient who did have a fever tachycardia and elevated white count source is right breast abscess and cellulitis that is failing outpatient oral dicloxacillin therapy with a question of possible MRSA infection 2-Patient with multiple antibiotic ALLERGIES that would limit the number of antibiotic safe to use Plan: 1-discontinue clindamycin 2-Vancomycin pharmacy to dose target trough of 15 while watching his kidney function and Vanco trough closely 3-gentle IV fluid We will follow on clinical condition and cultures to further adjust medication if needed Thank you for this consultation will follow this patient with you Time with Patient: Greater than 30
[2019-04-06] MEDS ORDERED: VANCOMYCIN 1,500 MG in SODIUM CHLORIDE 0.9% 250 ML IVPB ONE (18:00)
[2019-04-06] MEDS: HYDROcodone/APAP 5-325MG 1 EACH TAB PO PRN (18:20)
--- NOTE | 2019-04-06 19:18 | PN ---
PROGRESS NOTE DATE OF SERVICE: 04/06/2019 I am covering for Dr. Joya. This 23-year-old woman was admitted with right breast abscess, underwent incision and drainage by Dr. cShultz. The patient is on IV antibiotics. No chest pain. No palpitation. Wound is being packed. The cultures are pending at this time. PHYSICAL EXAM: Alert and oriented x3. Pulse is 72. Blood pressure 124/83, respiration 20, temperature 98.1, pulse ox 97% on room air. HEENT: Conjunctivae normal. NECK: No jugular venous distention. CARDIOVASCULAR: S1, S2 muffled. RESPIRATORY: Breath sounds diminished in the bases. No rhonchi. No crackles. ABDOMEN is soft, nontender. LEGS are no edema. No swelling. CENTRAL NERVOUS SYSTEM: No focal deficits. Examination of the right breast is status post incision and drainage. LABS: WBC 7.1, hemoglobin 9.1, sodium 130, potassium 3.9. ASSESSMENT: 1. Acute right breast abscess with possible sepsis, present on admission, status post incision and drainage. 2. Increased WBC. 3. Anemia secondary to recent . 4. History of anxiety, depression. 5. History of adenoidectomy. 6. History of tonsillectomy. 7. History of section. 8. History of neck abscess. RECOMMENDATIONS AND DISCUSSION: I recommend to continue current medications, continue current management, symptomatic treatment, and continue with broad-spectrum IV antibiotics. Await culture reports. Closely follow with surgery and Infectious Disease. Otherwise, continue to monitor. Dr. Joya will follow. MMODL / IJN: [id number] /
[2019-04-06] MEDS ORDERED: diphenhydrAMINE 50 MG/ML 1 ML VIAL IVP STA (20:13)
--- NOTE | 2019-04-06 22:35 | PN ---
PROGRESS NOTE DATE OF SERVICE: 04/06/2019. REASON FOR FOLLOW UP: Right breast abscess. INTERVAL HISTORY: The patient is currently afebrile. The patient denies having any chest pain or shortness of breath. No cough. No nausea, vomiting, abdominal pain. Pain to the right breast has decreased intensity about 3 out of 10. PHYSICAL EXAMINATION: Blood pressure 135/85 with a pulse of 65. Temperature 98.4. She is 96% on room air. General description is a middle aged female, lying in bed in no distress. Respiratory system: Unlabored breathing. Clear to auscultation anteriorly. Heart S1, S2. Regular rate and rhythm. Abdomen soft, no tenderness. EXTREMITIES: No edema of the feet. Breast wound was dressed up by the arms. No evidence of any purulence. LABS: White count normal 7.1. BUN of 9, creatinine 0.51. DIAGNOSTIC IMPRESSION/PLAN: Patient with right breast abscess failing outpatient oral antibiotic with concern for possible MRSA. The patient will continue vancomycin while waiting for the culture to finalize to determine discharge antibiotics. Continue supportive care. MMODL / IJN: [id number] / ELLIE
[2019-04-07] MEDS: VANCOMYCIN 1,500 MG in SODIUM CHLORIDE 0.9% 250 ML IVPB SCH ×3 (02:07→18:40)
[2019-04-07] MEDS: SODIUM CHLORIDE 0.9% 1,000 ML IV SCH ×2 (02:08→21:40)
[2019-04-07] MEDS: KETOROLAC 30 MG/ML 1 ML VIAL IVP PRN ×3 (02:14→17:54)
[2019-04-07] MEDS: PANTOPRAZOLE 40 MG TABLET PO SCH (07:36)
[2019-04-07 08:09] LABS: Anisocytosis Slight; Basophils % (A) 1 %; Eosinophils # (A) 0.3 k/uL (0-0.7); Eosinophils % (A) 6 %; HCT 31.8 % (34.0-46.0); HGB 9.9 gm/dL (11.4-16.0); Hypochromasia Moderate; Lymphocytes # (A) 1.9 k/uL (1.0-4.8); Lymphocytes % (A) 40 %; MCH 25.1 pg (25.0-35.0); MCHC 31.2 g/dL (31.0-37.0); MCV 80.4 fL (80.0-100.0); Mean Platelet Volume 7.6; Microcytosis Slight; Monocytes # (A) 0.2 k/uL (0-1.0); Monocytes % (A) 5 %; Neutrophils # (A) 2.2 k/uL (1.3-7.7); Neutrophils % (A) 47 %; Platelet Count 371 k/uL (150-450); RBC 3.95 m/uL (3.80-5.40); RDW 18.5 % (11.5-15.5); WBC 4.7 k/uL (3.8-10.6)
--- NOTE | 2019-04-07 08:20 | P.PN ---
Subjective Progress Note Date: 04/07/19 Principal diagnosis: Breast abscess This is a 21-year-old white female with recent incision and drainage of right breast abscess. The patient states significant less pain no fever. No significant nausea, vomiting or diarrhea. Pain is fairly well controlled. She is concerned about her self-care once discharged Objective - Vital Signs Vital signs: Vital Signs Temp 97.9 F 04/07/19 02:19 Pulse 63 04/07/19 02:19 Resp 18 04/07/19 02:19 BP 123/80 04/07/19 02:19 Pulse Ox 99 04/07/19 02:19 Intake & Output 04/06/19 04/07/19 04/07/19 18:59 06:59 18:59 Intake Total 1000 Balance 1000 Intake: Oral 1000 Other: Voiding Method Toilet # Voids 1 1 - Constitutional General appearance: Present: average body habitus - EENT Eyes: Absent: abnormal pupil - Respiratory Respiratory: bilateral: CTA - Cardiovascular Rhythm: regular Heart sounds: normal: S1, S2 - Gastrointestinal General gastrointestinal: Present: soft. Absent: tenderness - Labs CBC & Chem 7: 04/07/19 07:59 04/06/19 08:32 Labs: Abnormal Lab Results - Last 24 Hours (Table) 04/06/19 04/06/19 04/07/19 Range/Units 08:32 08:36 07:59 RBC 3.76 L (3.80-5.40) m/uL Hgb 9.1 L 9.9 L (11.4-16.0) gm/dL Hct 29.6 L 31.8 L (34.0-46.0) % MCV 78.7 L (80.0-100.0) fL MCH 24.1 L (25.0-35.0) pg MCHC 30.6 L (31.0-37.0) g/dL RDW 18.8 H 18.5 H (11.5-15.5) % Creatinine 0.51 L (0.52-1.04) mg/dL Glucose 113 H (74-99) mg/dL Microbiology - Last 24 Hours (Table) 04/05/19 14:45 Gram Stain - Preliminary Breast - Right Wound Culture - Preliminary Presumptive Staph aureus 04/04/19 15:15 Blood Culture - Preliminary Blood No Growth after 48 hours Assessment and Plan (1) Abscess of right breast Current Visit: Yes Status: Acute Code(s): N61.1 - ABSCESS OF THE BREAST AND NIPPLE SNOMED Code(s): 75320505 (2) Mastitis, right, acute Current Visit: Yes Status: Acute Code(s): N61.0 - MASTITIS WITHOUT ABSCESS SNOMED Code(s): 55559583 Plan: Continue current regimen of treatment. Essentially awaiting culture and sensitivity. Anticipate DC in next 24 hours. Time with Patient: Less than 30
[2019-04-07 08:22] LABS: African American GFR (CKD) >90 (>60 ml/min/1.73 sqM); Anion Gap 7 mmol/L; Blood Urea Nitrogen 6 mg/dL (7-17); Calcium 8.9 mg/dL (8.4-10.2); Carbon Dioxide 28 mmol/L (22-30); Chloride 105 mmol/L (98-107); Glucose 89 mg/dL (74-99); Non-African American GFR(CKD) >90 (>60 ml/min/1.73 sqM); Potassium 3.9 mmol/L (3.5-5.1); Sodium 140 mmol/L (137-145)
[2019-04-07] MEDS: HEPARIN SODIUM,PORCINE 5,000 UNIT/ML 1 ML VIAL SQ SCH ×2 (09:50→21:40)
[2019-04-07] MEDS: buPROPion 75 MG TAB PO SCH (09:50)
--- NOTE | 2019-04-07 12:03 | P.PN ---
Subjective Progress Note Date: 04/07/19 CHIEF COMPLAINT: Right breast abscess HISTORY OF PRESENT ILLNESS: 23-year-old female who underwent incision and drainage with debridement of right breast abscess on 04/05/[address] Schultz. Wound cultures are showing presumptive staph aureus. The cultures are negative at 48 hour samy. Infectious disease is following. Patient reports her pain is tolerable to right breast. She is hoping to be discharged home tomorrow. PHYSICAL EXAM: VITAL SIGNS: Currently stable. GENERAL: Well-developed in no acute distress. HEENT: No sclera icterus. Extraocular movements grossly intact. Moist buccal mucosa. Head is atraumatic, normocephalic. Hears conversational speech. No nasal drainage. NECK: Supple without lymphadenopathy. CHEST: Non-labored respirations and equal bilateral excursions. CARDIOVASCULAR: Regular rate with regular rhythm. Palpable 2+ radial pulses. ABDOMEN: Soft. Nondistended. Nontender. MUSCULOSKELETAL: No clubbing, cyanosis or edema. NEUROLOGIC: No focal or lateralizing signs. Cranial nerves II through XII grossly intact. PSYCH: Appropriate affect. Alert and oriented to person, place and time. SKIN: Well perfused. Good skin turgor. Wound to right breast with packing to right upper aspect of breast. Mild surrounding erythema. Surrounding breast tissue soft. ASSESSMENT: 1. Right breast abscess, status post I&D PLAN: 1. Continue daily wound care to right breast with Aquacel silver packing and cover with 4x4 and ABD pad 2. Await final wound culture results 3. Antibiotics per Dr. Fields 4. Possible discharge home tomorrow once cultures and antibiotic plan is finalized Nurse practitioner note has been reviewed by physician. Signing provider agrees with the documented findings, assessment, and plan of care. Objective - Vital Signs Vital signs: Vital Signs Temp 98.0 F 04/07/19 08:58 Pulse 73 04/07/19 08:58 Resp 16 04/07/19 08:58 BP 127/83 04/07/19 08:58 Pulse Ox 97 04/07/19 08:58 Intake & Output 04/06/19 04/07/19 04/07/19 18:59 06:59 18:59 Intake Total 1000 300 Balance 1000 300 Intake: Oral 1000 300 Other: Voiding Method Toilet # Voids 1 1 - Labs CBC & Chem 7: 04/07/19 07:59 04/07/19 07:59 Labs: Abnormal Lab Results - Last 24 Hours (Table) 04/07/19 04/07/19 Range/Units 07:59 07:59 Hgb 9.9 L (11.4-16.0) gm/dL Hct 31.8 L (34.0-46.0) % RDW 18.5 H (11.5-15.5) % BUN 6 L (7-17) mg/dL Microbiology - Last 24 Hours (Table) 04/05/19 14:45 Gram Stain - Preliminary Breast - Right Wound Culture - Preliminary Presumptive Staph aureus 04/04/19 15:15 Blood Culture - Preliminary Blood No Growth after 48 hours
[2019-04-07] MEDS: HYDROmorphone 1 MG/ML 1 ML SYRINGE IVP PRN (12:09)
[2019-04-07] MEDS: diphenhydrAMINE 25 MG CAP PO SCH ×2 (17:49→22:08)
--- NOTE | 2019-04-07 20:42 | PN ---
PROGRESS NOTE DATE OF SERVICE: 04/07/2019. REASON FOR FOLLOWUP: Right breast abscess. INTERVAL HISTORY: The patient is currently afebrile. She has been breathing comfortably. Apparently the patient did have slight rash around the IV site at the time of vancomycin which is possibly related to subcutaneous that IV has been discontinued. The patient continues to have worsening pain in the right breast area. No nausea. No vomiting. No abdominal pain or diarrhea. PHYSICAL EXAMINATION: Blood pressure 131/91 with a pulse of 73, temperature 98.1. She is 96% on room air. General description is a middle-aged female lying in bed in no distress. RESPIRATORY SYSTEM: Unlabored breathing. Clear to auscultation anteriorly. HEART: S1, S2. Regular rate and rhythm. ABDOMEN: Soft. No tenderness. right breast RN. It shows a deep wound with some changes around it. LABS: Hemoglobin 9.9, white count 4.7. BUN 6, creatinine 0.56. Culture positive for Staphylococcus aureus. Sensitivities pending. DIAGNOSTIC IMPRESSION AND PLAN: Patient with a right breast abscess with MULTIPLE ANTIBIOTIC ALLERGIES. Culture is showing Staphylococcus aureus, sensitivities pending. Continue vancomycin. Likely Will need outpatient IV antibiotic Continue supportive care. Local wound care with Aquacel Silver packing. MMODL / IJN: [id number] / ELLIE
[2019-04-07] MEDS: CLINDAMYCIN 900 MG in DEXTROSE 5% IN WATER 50 ML IVPB SCH ×2 (21:40)
[2019-04-08] MEDS: CLINDAMYCIN 900 MG in DEXTROSE 5% IN WATER 50 ML IVPB SCH ×4 (05:04→13:50)
[2019-04-08] MEDS: HYDROcodone/APAP 5-325MG 1 EACH TAB PO PRN (07:00)
[2019-04-08] MEDS: PANTOPRAZOLE 40 MG TABLET PO SCH (07:00)
--- NOTE | 2019-04-08 07:27 | P.DS ---
Providers Date of admission: 04/04/19 16:56 Attending physician: Robert Joya Consults: 04/04/19 16:57 Consult Physician Routine Consulting Provider: Abelardo Schultz Consult Reason/Comments: mastitis with abscess Do you want consulting provider notified?: Yes 04/04/19 20:27 Consult Physician Routine Consulting Provider: Shae Fields Consult Reason/Comments: breast abscess Do you want consulting provider notified?: Yes Primary care physician: Robert Joya - Discharge Diagnosis(es) (1) Abscess of right breast Current Visit: Yes Status: Acute (2) Mastitis, right, acute Current Visit: Yes Status: Acute Hospital Course: This is a discharge summary 23-year-old white female essentially admitted for mastitis with breast abscess. Incision and drainage was done. Culture and sensitivity did show Staphylococcus aureus. The patient will be discharged once antibiotic for discharge as clarified. Sensitivity to show to Cipro and Levaquin. Tentatively perception for Levaquin has been given. I will follow-up with the patient in the next 3-5 days. We will discharge once cleared by consultants. Patient Condition at Discharge: Fair Plan - Discharge Summary New Discharge Prescriptions: New Levofloxacin [Levaquin] 500 mg PO DAILY #7 tab No Action buPROPion [Wellbutrin] 75 mg PO DAILY Discharge Medication List buPROPion [Wellbutrin] 75 mg PO DAILY 12/10/18 [History] Levofloxacin [Levaquin] 500 mg PO DAILY #7 tab 04/08/19 [Rx] Follow up Appointment(s)/Referral(s): Robert Joya MD [Primary Care Provider] - 1-2 days Discharge Disposition: HOME WITH HOME HEALTH SERVICES
[2019-04-08] MEDS ORDERED: VANCOMYCIN TROUGH DUE 1 EACH MISC MISCELLANE ONE (09:00)
[2019-04-08] MEDS: HEPARIN SODIUM,PORCINE 5,000 UNIT/ML 1 ML VIAL SQ SCH (09:13)
[2019-04-08] MEDS: diphenhydrAMINE 25 MG CAP PO SCH (09:14)
[2019-04-08] MEDS: buPROPion 75 MG TAB PO SCH (09:14)
[2019-04-08] MEDS ORDERED: VANCOMYCIN 1,500 MG in SODIUM CHLORIDE 0.9% 250 ML IVPB SCH (10:00)
[2019-04-08 10:21] VITALS: RESP 20
--- NOTE | 2019-04-08 11:15 | P.PN ---
Subjective Progress Note Date: 04/08/19 CHIEF COMPLAINT: Right breast abscess HISTORY OF PRESENT ILLNESS: 23-year-old female who underwent incision and drainage with debridement of right breast abscess on 04/05/[address] Schultz. Wound cultures positive for staph aureus. Infectious disease is following. Patient reports her pain is tolerable to right breast. PHYSICAL EXAM: VITAL SIGNS: Currently stable. GENERAL: Well-developed in no acute distress. HEENT: No sclera icterus. Extraocular movements grossly intact. Moist buccal mucosa. Head is atraumatic, normocephalic. Hears conversational speech. No nasal drainage. NECK: Supple without lymphadenopathy. CHEST: Non-labored respirations and equal bilateral excursions. CARDIOVASCULAR: Regular rate with regular rhythm. Palpable 2+ radial pulses. ABDOMEN: Soft. Nondistended. Nontender. MUSCULOSKELETAL: No clubbing, cyanosis or edema. NEUROLOGIC: No focal or lateralizing signs. Cranial nerves II through XII grossly intact. PSYCH: Appropriate affect. Alert and oriented to person, place and time. SKIN: Well perfused. Good skin turgor. Wound to right breast with packing to right upper aspect of breast. Mild surrounding erythema. Surrounding breast tissue soft. ASSESSMENT: 1. Right breast abscess, status post I&D PLAN: 1. Continue daily wound care to right breast with Aquacel silver packing and cover with 4x4 and ABD pad 2. Antibiotics per Dr. Fields 3. Stable for discharge from a surgical standpoint. 4. We will sign off. Please re-consult if needed Nurse practitioner note has been reviewed by physician. Signing provider agrees with the documented findings, assessment, and plan of care. Objective - Vital Signs Vital signs: Vital Signs Temp 98.2 F 04/08/19 08:53 Pulse 64 04/08/19 08:53 Resp 20 04/08/19 08:53 BP 123/88 04/08/19 08:53 Pulse Ox 96 04/08/19 08:53 Intake & Output 04/07/19 04/08/19 04/08/19 18:59 06:59 18:59 Intake Total 300 Balance 300 Intake: Oral 300 Other: Voiding Method Toilet Toilet # Voids 1 1 1 # Bowel Movements 2 - Labs CBC & Chem 7: 04/07/19 07:59 04/07/19 07:59 Labs: Microbiology - Last 24 Hours (Table) 04/05/19 14:45 Gram Stain - Final Breast - Right Wound Culture - Final Staphylococcus aureus 04/05/19 14:45 Anaerobic Culture - Preliminary Breast - Right 04/04/19 15:15 Blood Culture - Preliminary Blood No Growth after 72 hours
[2019-04-08] MEDS: HYDROmorphone 1 MG/ML 1 ML SYRINGE IVP PRN (13:40)
[2019-04-08] MEDS: KETOROLAC 30 MG/ML 1 ML VIAL IVP PRN (13:43)
--- NOTE | 2019-04-08 14:01 | PN ---
PROGRESS NOTE DATE OF SERVICE: 04/08/2019 REASON FOR FOLLOWUP: Right breast abscess emesis with multiple antibiotic allergies. INTERVAL HISTORY: The patient is currently afebrile. Patient has been breathing comfortably. Denies having any chest pain, nor any cough. No abdominal pain or pain to the right breast area. PHYSICAL EXAMINATION: Blood pressure 123/88 with a pulse of 64, temperature 98.2, she is 96% on room air. General description is a middle-aged female, up in the bed in no distress. RESPIRATORY SYSTEM: Unlabored breathing, clear to auscultation anteriorly. HEART: S1, S2. Regular rate and rhythm. Right breast abscess with continued dressing. DIAGNOSTIC IMPRESSION AND PLAN: Patient with right breast abscess failing outpatient oral antibiotic therapy with multiple antibiotics and culture positive for MSSA. PLAN: The patient advised IV daptomycin for 10 days. The patient refused any IV antibiotic. She will be given clindamycin 300 p.o. for 10 days. Local wound care with packing and close outpatient followup. MMODL / IJN: [id number] /
[2019-04-08 15:07] VITALS: BP 145/90; PULSE 60; TEMP 98.1
[2019-04-08] MEDS ORDERED: CLINDAMYCIN 150 MG CAP PO SCH (21:00)
--- NOTE | 2019-04-09 15:41 | CDI ---
Documentation Clarification Form Date: 04/09/19 From: Divya Wong Phone: If you have a question regarding this query, please contact Francine Arias at [phone] between 8am and 5pm. Admit Date: 04/04/2019 4:56:00 PM Patient Name: Mary Holt Visit Number: [id number] Discharge Date: 04/08/2019 3:50:00 PM ATTENTION: The Clinical Documentation Specialists (CDI) and [facility] Coding Staff appreciate your assistance in clarifying documentation. Please respond to the clarification below the line at the bottom and electronically sign. The CDI & [facility] Coding staff will review the response and follow-up if needed. Please note: Queries are made part of the Legal Health Record. If you have any questions, please contact the author of this message via ITS. Dr. Robert Joya The patient presented with the following acute mastitis with abscess. Per Dr. Zambrano's documentation, the patient had possible sepsis. History/Risk Factors: Right side mastitis with abscess. Clinical Indicators:Elevated white count, tachycardia and fever WBC: 11.3 Lactic acid: 0.5 Blood cultures: No growth. Vitals signs on admission: T. 98.8 then up to 101.4 3 hours later, P. 111, R. 18, BP 124/80 Treatment: Antibiotics: IV Clindamycin and IV Vancomycin Other: Excisional debridement of the abscess In your professional opinion, please clarify if these findings signify one of the following conditions: Condition Sepsis ruled out SIRS, without underlying infectious process Sepsis Severe Sepsis Septic Shock Other, please specify Unable to determine MTDD
== END 2019-04-08 15:50 | disposition home or self-care (01) | DRG 769 ==
LOC: EC 14:04 → 6PED 16:56
PROVIDERS: ADMIT Family Medicine; ATTEND Family Medicine
PROC: 0HBT0ZZ Excision of Right Breast, Open Approach (ICD-10-PCS; principal; 2019-04-05 14:00)
DX: O91.22 Nonpurulent mastitis associated with the puerperium (principal); O91.12 Abscess of breast associated with the puerperium; B95.61 Methicillin susceptible Staphylococcus aureus infection as the cause of diseases classified elsewhere; O90.81 Anemia of the puerperium; D64.9 Anemia, unspecified; O99.345 Other mental disorders complicating the puerperium; F53.0 Postpartum depression; F41.9 Anxiety disorder, unspecified; N61.1 Abscess of the breast and nipple; Z79.899 Other long term (current) drug therapy; Z88.1 Allergy status to other antibiotic agents; Z88.2 Allergy status to sulfonamides; Z98.891 History of uterine scar from previous surgery; Z82.49 Family history of ischemic heart disease and other diseases of the circulatory system
CPT/HCPCS: 36415; 80048; 80053; 81003; 81025; 83605; 85025; 87040; 87070; 87075; 87077; 87186; 87205; 96361; 96365; 96375; 99284

== ENCOUNTER 2019-06-10 16:57 | Emergency (ER) | payer BC, OTHER ==
[2019-06-10 18:58] LABS: Amphetamine Screen,Urine Not Detected (NotDetected); Barbiturate Screen,Urine Not Detected (NotDetected); Benzodiazepines Screen,Urine Not Detected (NotDetected); Cocaine Screen,Urine Not Detected (NotDetected); Methadone Screen, Urine Not Detected (NotDetected); Opiate Screen,Urine Not Detected (NotDetected); Oxycodone Screen, Urine Not Detected (NotDetected); Phencyclidine Screen,Urine Not Detected (NotDetected); Tricyclic Antidepressant,Urine Not Detected (NotDetected); Urn Cannabinoid Scrn Not Detected (NotDetected)
--- NOTE | 2019-06-10 20:04 | ED ---
General Adult HPI - General Chief complaint: Psychiatric Symptoms Stated complaint: Mental health Time Seen by Provider: 06/10/19 17:11 Source: patient, RN notes reviewed Mode of arrival: ambulatory Limitations: no limitations - History of Present Illness Initial comments: 23-year-old female with a past medical history of anxiety and depression currently taking Wellbutrin presents for complaint of possible suicidal thoughts. Patient is 3 months with twins. Patient states that he was out last night and when her boyfriend apparently called her mother and told her she was saying she is suicidal. Patient states that when she got home her mother was upset about this. States that today her mother asked her why she was suicidal and she denied ever saying she was suicidal or having suicidal thoughts. However mother called the police who came and said they would either have to take patient to the hospital or she could go willingly. Patient presents denying any suicidal thoughts. Denies any thoughts of harming herself or anyone else. Patient has no other complaints at this time including shortness of breath, chest pain, abdominal pain, nausea or vomiting, headache, or visual changes. - Related Data Home Medications Medication Instructions Recorded Confirmed NIFEdipine [Procardia] 20 mg PO TID PRN 06/10/19 06/10/19 buPROPion HCL [Wellbutrin XL] 150 mg PO DAILY 06/10/19 06/10/19 Allergies Allergy/AdvReac Type Severity Reaction Status Date / Time cephalexin monohydrate Allergy Rash/Hives Verified 06/10/19 18:01 [From Keflex] erythromycin base Allergy Rash/Hives Verified 06/10/19 18:01 [Erythromycin Base] lamotrigine [From Lamictal] Allergy Rash/Hives Verified 06/10/19 18:01 sulfamethoxazole Allergy Rash/Hives Verified 06/10/19 18:01 [From Bactrim] trimethoprim [From Bactrim] Allergy Rash/Hives Verified 06/10/19 18:01 vancomycin Allergy Rash/Hives Verified 06/10/19 18:01 Review of Systems ROS Statement: Those systems with pertinent positive or pertinent negative responses have been documented in the HPI. ROS Other: All systems not noted in ROS Statement are negative. Past Medical History Past Medical History: No Reported History Additional Past Medical History / Comment(s): Hx anxiety/depression History of Any Multi-Drug Resistant Organisms: None Reported Past Surgical History: Adenoidectomy, Section, Tonsillectomy Additional Past Surgical History / Comment(s): abscess removed from neck Past Anesthesia/Blood Transfusion Reactions: No Reported Reaction Past Psychological History: Anxiety, Depression Smoking Status: Never smoker Past Alcohol Use History: None Reported Past Drug Use History: None Reported - Past Family History Mother Family Medical History: Hypertension General Exam Limitations: no limitations General appearance: alert, in no apparent distress Head exam: Present: atraumatic, normocephalic, normal inspection Eye exam: Present: normal appearance, PERRL, EOMI. Absent: scleral icterus, conjunctival injection, periorbital swelling ENT exam: Present: normal exam, mucous membranes moist Neck exam: Present: normal inspection, full ROM. Absent: tenderness, meningismus, lymphadenopathy Respiratory exam: Present: normal lung sounds bilaterally. Absent: respiratory distress, wheezes, rales, rhonchi, stridor Cardiovascular Exam: Present: regular rate, normal rhythm, normal heart sounds. Absent: systolic murmur, diastolic murmur, rubs, gallop, clicks GI/Abdominal exam: Present: soft, normal bowel sounds. Absent: distended, tenderness, guarding, rebound, rigid Neurological exam: Present: alert Psychiatric exam: Present: normal affect, normal mood. Absent: homicidal ideation, suicidal ideation Course Vital Signs 06/10/19 17:05 Temperature 98.1 F Pulse Rate 93 Respiratory 18 Rate Blood Pressure 128/84 O2 Sat by Pulse 100 Oximetry Medical Decision Making - Medical Decision Making 23-year-old female presents for possible suicidal thoughts. Patient denies these thoughts however her boyfriend told her mother she was given called the police. Patient denies ever saying she was suicidal or feeling suicidal. Patient does have a history of anxiety and depression and is currently 3 months with twins. Patient medically cleared and currently pending EPS evaluation. She was evaluated by EPS he recommended discharge home. Apparently when patient said she wanted "it all to end" she meant the CPS investigation and it was a misunderstanding between mother and herself. Counselor at bedside who has been working with the family agrees patient has not been suicidal. Patient has intake with [facility] next week. - Lab Data Lab Results 06/10/19 Range/Units 18:30 Urine Opiates Screen Not Detected (NotDetected) Ur Oxycodone Screen Not Detected (NotDetected) Urine Methadone Screen Not Detected (NotDetected) Ur Propoxyphene Screen Not Detected (NotDetected) Ur Barbiturates Screen Not Detected (NotDetected) U Tricyclic Antidepress Not Detected (NotDetected) Ur Phencyclidine Scrn Not Detected (NotDetected) Ur Amphetamines Screen Not Detected (NotDetected) U Methamphetamines Scrn Not Detected (NotDetected) U Benzodiazepines Scrn Not Detected (NotDetected) Urine Cocaine Screen Not Detected (NotDetected) U Marijuana (THC) Screen Not Detected (NotDetected) Disposition Clinical Impression: Adjustment reaction Disposition: HOME SELF-CARE Condition: Good Instructions (If sedation given, give patient instructions): Depression (ED) Additional Instructions: Please follow up with primary care in 1-2 days. Please return to the emergency department if you have any worsening symptoms. Is patient prescribed a controlled substance at d/c from ED?: No Referrals: Robert Joya MD [Primary Care Provider] - 1-2 days Time of Disposition: 20:20
[2019-06-10 21:01] VITALS: BP 120/62; PULSE 88; RESP 15; TEMP 98
== END 2019-06-10 21:02 | disposition home or self-care (01) ==
LOC: EC 16:57
DX: F43.20 Adjustment disorder, unspecified (principal); F32.9 Major depressive disorder, single episode, unspecified; Z88.1 Allergy status to other antibiotic agents; Z88.2 Allergy status to sulfonamides; Z88.8 Allergy status to other drugs, medicaments and biological substances; Z79.899 Other long term (current) drug therapy
CPT/HCPCS: 80306; 82075; 99284

== ENCOUNTER 2019-09-13 23:24 | Emergency (ER) | payer BC, OTHER ==
[2019-09-13 23:48] VITALS: RESP 16; TEMP 98.2
[2019-09-14] MEDS ORDERED: methylPREDNISolone SOD SUCCI 125 MG/2 ML VIAL IM ONE (00:32)
[2019-09-14] MEDS ORDERED: IPRATROPIUM-ALBUTEROL 3 ML NEB INHALATION STA (00:32)
--- NOTE | 2019-09-14 00:50 | ED ---
General Adult HPI - General Chief complaint: Upper Respiratory Infection Stated complaint: Fever,Cough Time Seen by Provider: 09/14/19 00:13 Source: patient, RN notes reviewed Mode of arrival: ambulatory Limitations: no limitations - History of Present Illness Initial comments: 23-year-old female presents to the emergency department for a chief complaint of cough congestion. Patient states she has had this for 2 weeks. States she has had intermittent fevers as well. Patient does have a history of asthma. States she has been using her inhaler. Denies sore throat. Denies ear pain. Denies chest pain or shortness of breath.Patient has no other complaints at this time including shortness of breath, chest pain, abdominal pain, nausea or vomiting, headache, or visual changes. - Related Data Home Medications Medication Instructions Recorded Confirmed NIFEdipine [Procardia] 20 mg PO TID PRN 06/10/19 06/10/19 buPROPion HCL [Wellbutrin XL] 150 mg PO DAILY 06/10/19 06/10/19 Previous Rx's Medication Instructions Recorded Azithromycin [Zithromax Z-pack] 250 mg PO DIRECTED #6 tab 09/14/19 Fluticasone Nasal [place] [Flonase 1 spray EA NOSTRIL DAILY 7 Days #1 09/14/19 Nasal [place]] bottle guaiFENesin [Mucinex] 600 mg PO BID PRN #20 tab.er.12h 09/14/19 predniSONE 50 mg PO DAILY #5 tablet 09/14/19 Allergies Allergy/AdvReac Type Severity Reaction Status Date / Time cephalexin monohydrate Allergy Rash/Hives Verified 09/13/19 23:47 [From Keflex] erythromycin base Allergy Rash/Hives Verified 09/13/19 23:47 [Erythromycin Base] lamotrigine [From Lamictal] Allergy Rash/Hives Verified 09/13/19 23:47 sulfamethoxazole Allergy Rash/Hives Verified 09/13/19 23:47 [From Bactrim] trimethoprim [From Bactrim] Allergy Rash/Hives Verified 09/13/19 23:47 vancomycin Allergy Rash/Hives Verified 09/13/19 23:47 Review of Systems ROS Statement: Those systems with pertinent positive or pertinent negative responses have been documented in the HPI. ROS Other: All systems not noted in ROS Statement are negative. Past Medical History Past Medical History: No Reported History Additional Past Medical History / Comment(s): Hx anxiety/depression History of Any Multi-Drug Resistant Organisms: None Reported Past Surgical History: Adenoidectomy, Section, Tonsillectomy Additional Past Surgical History / Comment(s): abscess removed from neck Past Anesthesia/Blood Transfusion Reactions: No Reported Reaction Past Psychological History: Anxiety, Depression Smoking Status: Never smoker Past Alcohol Use History: None Reported Past Drug Use History: None Reported - Past Family History Mother Family Medical History: Hypertension General Exam Limitations: no limitations General appearance: alert, in no apparent distress Head exam: Present: atraumatic, normocephalic, normal inspection Eye exam: Present: normal appearance, PERRL, EOMI. Absent: scleral icterus, conjunctival injection, periorbital swelling ENT exam: Present: normal exam, normal oropharynx, mucous membranes moist, TM's normal bilaterally, normal external ear exam, other (Patient does have nasal congestion on exam) Neck exam: Present: normal inspection, full ROM. Absent: tenderness, meningismus, lymphadenopathy Respiratory exam: Present: wheezes (Minimal wheezing on exam). Absent: respiratory distress, rales, rhonchi, stridor Cardiovascular Exam: Present: regular rate, normal rhythm, normal heart sounds. Absent: systolic murmur, diastolic murmur, rubs, gallop, clicks Neurological exam: Present: alert Course Vital Signs 09/13/19 23:45 Temperature 98.2 F Pulse Rate 88 Respiratory 16 Rate Blood Pressure 118/78 O2 Sat by Pulse 98 Oximetry Medical Decision Making - Medical Decision Making Vitals are stable. Patient is 98% on room air. Patient does have some minimal wheezing on exam, given breathing treatment with significant improvement. No resp distress throughout stay. She was also given IM Solu-Medrol only put on outpatient steroids. As symptoms have been ongoing for 2 weeks I will clinically treat patient with azithromycin. Patient will also be given a nasal spray. She will follow up with primary care in 1-2 days. She'll return here if she has any worsening symptoms. - Lab Data Lab Results 09/13/19 Range/Units 23:45 Influenza Type A RNA Not Detected (Not Detectd) Influenza Type B (PCR) Not Detected (Not Detectd) Disposition Clinical Impression: Cough, Asthma exacerbation Disposition: HOME SELF-CARE Condition: Good Instructions (If sedation given, give patient instructions): Upper Respiratory Infection (ED) Prescriptions: Fluticasone Nasal [place] [Flonase Nasal [place]] 1 spray EA NOSTRIL DAILY 7 Days #1 bottle guaiFENesin [Mucinex] 600 mg PO BID PRN #20 tab.er.12h PRN Reason: Congestion predniSONE 50 mg PO DAILY #5 tablet Azithromycin [Zithromax Z-pack] 250 mg PO DIRECTED #6 tab Is patient prescribed a controlled substance at d/c from ED?: No Referrals: Robert Joya MD [Primary Care Provider] - 1-2 days Time of Disposition: 00:48
[2019-09-14 02:09] VITALS: BP 120/66; PULSE 81
== END 2019-09-14 01:15 | disposition home or self-care (01) ==
LOC: EC 23:24
DX: J45.901 Unspecified asthma with (acute) exacerbation (principal); F41.9 Anxiety disorder, unspecified; F32.9 Major depressive disorder, single episode, unspecified; Z79.899 Other long term (current) drug therapy; Z88.1 Allergy status to other antibiotic agents; Z88.2 Allergy status to sulfonamides
CPT/HCPCS: 94640; 87502; 99283; 96372; J2930

== ENCOUNTER 2019-09-16 14:05 | Emergency (ER) | payer BC, OTHER ==
--- NOTE | 2019-09-16 15:22 | ED ---
General Adult HPI - General Chief complaint: Vaginal Bleeding Stated complaint: Cough, sore throat, fever, Time Seen by Provider: 09/16/19 14:23 Source: patient Mode of arrival: ambulatory Limitations: no limitations - History of Present Illness Initial comments: Patient is a 23-year-old female presenting to the emergency department with 2 separate complaints. Patient was seen 2 days ago for a cough and upper respiratory type symptoms and was started on steroids as well as Z-Billy. Patient states her symptoms are persisting and she feels little improvement. She is having some mild shortness of breath as well as increasing cough. Her cough is dry in nature. Patient's other complaint is she took a test 2 days ago which was positive. Patient states this morning she has been having vaginal spotting as well as lower abdominal cramping. . Patient had twins in February and having irregular periods since. Patient denies nausea, vomiting, diarrhea. Upon arrival to the ER, vital signs are stable. - Related Data Home Medications Medication Instructions Recorded Confirmed NIFEdipine [Procardia] 20 mg PO TID PRN 06/10/19 06/10/19 buPROPion HCL [Wellbutrin XL] 150 mg PO DAILY 06/10/19 06/10/19 Previous Rx's Medication Instructions Recorded Azithromycin [Zithromax Z-pack] 250 mg PO DIRECTED #6 tab 09/14/19 Fluticasone Nasal [place] [Flonase 1 spray EA NOSTRIL DAILY 7 Days #1 09/14/19 Nasal [place]] bottle guaiFENesin [Mucinex] 600 mg PO BID PRN #20 tab.er.12h 09/14/19 predniSONE 50 mg PO DAILY #5 tablet 09/14/19 Allergies Allergy/AdvReac Type Severity Reaction Status Date / Time cephalexin monohydrate Allergy Rash/Hives Verified 09/16/19 14:13 [From Keflex] erythromycin base Allergy Rash/Hives Verified 09/16/19 14:13 [Erythromycin Base] lamotrigine [From Lamictal] Allergy Rash/Hives Verified 09/16/19 14:13 sulfamethoxazole Allergy Rash/Hives Verified 09/16/19 14:13 [From Bactrim] trimethoprim [From Bactrim] Allergy Rash/Hives Verified 09/16/19 14:13 vancomycin Allergy Rash/Hives Verified 09/16/19 14:13 Review of Systems ROS Statement: Those systems with pertinent positive or pertinent negative responses have been documented in the HPI. ROS Other: All systems not noted in ROS Statement are negative. Past Medical History Past Medical History: No Reported History Additional Past Medical History / Comment(s): Hx anxiety/depression History of Any Multi-Drug Resistant Organisms: None Reported Past Surgical History: Adenoidectomy, Section, Tonsillectomy Additional Past Surgical History / Comment(s): abscess removed from neck Past Anesthesia/Blood Transfusion Reactions: No Reported Reaction Past Psychological History: Anxiety, Depression Smoking Status: Never smoker Past Alcohol Use History: None Reported Past Drug Use History: None Reported - Past Family History Mother Family Medical History: Hypertension General Exam - General Exam Comments Initial Comments: GENERAL: Well-appearing, well-nourished and in no acute distress. HEAD: Atraumatic, normocephalic. EYES: Pupils equal round and reactive to light, extraocular movements intact, sclera anicteric, conjunctiva are normal. ENT: TMs normal, nares patent, oropharynx clear without exudates. Moist mucous membranes. NECK: Normal range of motion, supple without lymphadenopathy or JVD. LUNGS: Breath sounds clear to auscultation bilaterally and equal. No wheezes rales or rhonchi. HEART: Regular rate and rhythm without murmurs, rubs or gallops. ABDOMEN: Mild suprapubic tenderness. Soft, normoactive bowel sounds. No guarding, no rebound. No masses appreciated. : Deferred, declined EXTREMITIES: Normal range of motion, no pitting or edema. No clubbing or cyanosis. NEUROLOGICAL: Normal speech, normal gait. PSYCH: Normal mood, normal affect. SKIN: Warm, Dry, normal turgor, no rashes or lesions noted. Limitations: no limitations Course Vital Signs 09/16/19 09/16/19 14:11 17:11 Temperature 98.5 F 98.2 F Pulse Rate 108 H 91 Respiratory 20 18 Rate Blood Pressure 123/79 111/70 O2 Sat by Pulse 94 L 97 Oximetry Medical Decision Making - Medical Decision Making Patient is a 23-year-old female presenting with 2 complaints. Ongoing cough for a week currently on azithromycin and steroids. Second issue, positive test 2 days ago and having vaginal spotting and lower abdominal cramping. She is , twins in February. Vital signs are stable upon arrival. Exam reveals some mild lower abdominal tenderness, rest of exam is unremarkable. Chest x-ray shows no acute abnormalities. No signs of pneumonia. Lab work shows no acute abnormalities. HCG Quant is 31,000. Urine shows no signs of infection. Pelvic ultrasound reveals a single IUP of estimated gestation of 17 weeks. Heartbeat was 161. No other acute findings. Discussed all these findings with the patient. Regarding her cough, I discussed that this most likely viral in nature. She may continue with the Z-Billy over please discontinue the steroids secondary to the . looks normal, non-complicated thus far. I recommended a pelvic exam however patient does have an appointment with [employer] [employer] at the end of this week and declined exam at this time. Patient is stable for discharge at this time. Return parameters were discussed with the patient she verbalized understanding. Case discussed with Dr. Ruby. - Lab Data Result diagrams: 09/16/19 15:58 09/16/19 15:58 Lab Results 09/16/19 09/16/19 09/16/19 Range/Units 15:17 15:17 15:58 WBC (3.8-10.6) k/uL RBC (3.80-5.40) m/uL Hgb (11.4-16.0) gm/dL Hct (34.0-46.0) % MCV (80.0-100.0) fL MCH (25.0-35.0) pg MCHC (31.0-37.0) g/dL RDW (11.5-15.5) % Plt Count (150-450) k/uL Neutrophils % % Lymphocytes % % Monocytes % % Eosinophils % % Basophils % % Neutrophils # (1.3-7.7) k/uL Lymphocytes # (1.0-4.8) k/uL Monocytes # (0-1.0) k/uL Eosinophils # (0-0.7) k/uL Basophils # (0-0.2) k/uL Sodium (137-145) mmol/L Potassium (3.5-5.1) mmol/L Chloride (98-107) mmol/L Carbon Dioxide (22-30) mmol/L Anion Gap mmol/L BUN (7-17) mg/dL Creatinine (0.52-1.04) mg/dL Est GFR (CKD-EPI)AfAm (>60 ml/min/1.73 sqM) Est GFR (CKD-EPI)NonAf (>60 ml/min/1.73 sqM) Glucose (74-99) mg/dL Calcium (8.4-10.2) mg/dL Total Bilirubin (0.2-1.3) mg/dL AST (14-36) U/L ALT (4-34) U/L Alkaline Phosphatase (38-126) U/L Total Protein (6.3-8.2) g/dL Albumin (3.5-5.0) g/dL HCG, Quant mIU/mL Urine Color Yellow Urine Appearance Cloudy H (Clear) Urine pH 7.0 (5.0-8.0) Ur Specific [place] 1.022 (1.001-1.035) Urine Protein 1+ H (Negative) Urine Glucose (UA) Negative (Negative) Urine Ketones Negative (Negative) Urine Blood Negative (Negative) Urine Nitrite Negative (Negative) Urine Bilirubin Negative (Negative) Urine Urobilinogen 4.0 (<2.0) mg/dL Ur Leukocyte Esterase Large H (Negative) Urine RBC 2 (0-5) /hpf Urine WBC 11 H (0-5) /hpf Ur Squamous Epith Cells 22 H (0-4) /hpf Urine Bacteria Many H (None) /hpf Urine Mucus Many H (None) /hpf Urine HCG, Qual Detected (Not Detectd) Blood Type O Positive Blood Type Recheck O Pos Bld Type Recheck Status No 09/16/19 09/16/19 09/16/19 Range/Units 15:58 15:58 16:23 WBC 7.4 (3.8-10.6) k/uL RBC 3.96 (3.80-5.40) m/uL Hgb 11.0 L (11.4-16.0) gm/dL Hct 33.2 L (34.0-46.0) % MCV 83.7 (80.0-100.0) fL MCH 27.8 (25.0-35.0) pg MCHC 33.3 (31.0-37.0) g/dL RDW 15.7 H (11.5-15.5) % Plt Count 370 (150-450) k/uL Neutrophils % 69 % Lymphocytes % 21 % Monocytes % 6 % Eosinophils % 1 % Basophils % 2 % Neutrophils # 5.1 (1.3-7.7) k/uL Lymphocytes # 1.6 (1.0-4.8) k/uL Monocytes # 0.4 (0-1.0) k/uL Eosinophils # 0.1 (0-0.7) k/uL Basophils # 0.1 (0-0.2) k/uL Sodium 136 L (137-145) mmol/L Potassium 3.7 (3.5-5.1) mmol/L Chloride 106 (98-107) mmol/L Carbon Dioxide 23 (22-30) mmol/L Anion Gap 7 mmol/L BUN 3 L (7-17) mg/dL Creatinine 0.36 L (0.52-1.04) mg/dL Est GFR (CKD-EPI)AfAm >90 (>60 ml/min/1.73 sqM) Est GFR (CKD-EPI)NonAf >90 (>60 ml/min/1.73 sqM) Glucose 79 (74-99) mg/dL Calcium 9.0 (8.4-10.2) mg/dL Total Bilirubin 0.5 (0.2-1.3) mg/dL AST 31 (14-36) U/L ALT 51 H (4-34) U/L Alkaline Phosphatase 110 (38-126) U/L Total Protein 6.2 L (6.3-8.2) g/dL Albumin 3.4 L (3.5-5.0) g/dL HCG, Quant 59706.2 mIU/mL Urine Color Urine Appearance (Clear) Urine pH (5.0-8.0) Ur Specific [place] (1.001-1.035) Urine Protein (Negative) Urine Glucose (UA) (Negative) Urine Ketones (Negative) Urine Blood (Negative) Urine Nitrite (Negative) Urine Bilirubin (Negative) Urine Urobilinogen (<2.0) mg/dL Ur Leukocyte Esterase (Negative) Urine RBC (0-5) /hpf Urine WBC (0-5) /hpf Ur Squamous Epith Cells (0-4) /hpf Urine Bacteria (None) /hpf Urine Mucus (None) /hpf Urine HCG, Qual (Not Detectd) Blood Type Blood Type Recheck Bld Type Recheck Status Disposition Clinical Impression: Upper respiratory infection, , Vaginal bleeding Disposition: HOME SELF-CARE Condition: Stable Instructions (If sedation given, give patient instructions): (ED), Upper Respiratory Infection (ED) Additional Instructions: Please return to the Emergency Department if symptoms worsen or any other concerns. May continue with azithromycin for upper respiratory infection. Please discontinue use of steroids. Follow-up with [employer], Dr. Lee in 2 days as discussed. Start vitamins. Is patient prescribed a controlled substance at d/c from ED?: No Referrals: Robert Joya MD [Primary Care Provider] - 1-2 days Lorena Lee DO [Doctor of Osteopathic Medicine] - 1-2 days
[2019-09-16 15:33] LABS: Appearance,Urine Cloudy (Clear); Bacteria,Urine Many /hpf; Bilirubin,Urine Negative (Negative); Blood,Urine Negative (Negative); Color,Urine Yellow; Glucose,Urine (UA) Negative (Negative); Ketones,Urine Negative (Negative); Leukocyte Esterase,Urine Large (Negative); Mucus,Urine Many /hpf; Nitrite,Urine Negative (Negative); Protein,Urine 1+ (Negative); RBC,Urine 2 /hpf (0-5); Specific Gravity,Urine 1.022 (1.001-1.035); Squamous Epithelial Cell,Urine 22 /hpf (0-4); WBC,Urine 11 /hpf (0-5)
--- NOTE | 2019-09-16 16:00 | XR ---
EXAMINATION TYPE: XR chest 2V DATE OF EXAM: 09/16/2019 COMPARISON: 12/01/2015 HISTORY: Cough and shortness of breath. TECHNIQUE: Frontal and lateral views of the chest are obtained. FINDINGS: There is no focal air space opacity, pleural effusion, or pneumothorax seen. The cardiac silhouette size is within normal limits. The osseous structures are intact. IMPRESSION: No acute cardiopulmonary process.
[2019-09-16 16:16] LABS: Basophils # (A) 0.1 k/uL (0-0.2); Basophils % (A) 2 %; Eosinophils # (A) 0.1 k/uL (0-0.7); Eosinophils % (A) 1 %; HCT 33.2 % (34.0-46.0); Lymphocytes # (A) 1.6 k/uL (1.0-4.8); Lymphocytes % (A) 21 %; MCH 27.8 pg (25.0-35.0); MCHC 33.3 g/dL (31.0-37.0); MCV 83.7 fL (80.0-100.0); Mean Platelet Volume 7.7; Monocytes # (A) 0.4 k/uL (0-1.0); Monocytes % (A) 6 %; Neutrophils # (A) 5.1 k/uL (1.3-7.7); Neutrophils % (A) 69 %; Platelet Count 370 k/uL (150-450); RBC 3.96 m/uL (3.80-5.40); RDW 15.7 % (11.5-15.5); WBC 7.4 k/uL (3.8-10.6)
--- NOTE | 2019-09-16 16:27 | US ---
EXAMINATION TYPE: US OB >= 14 wk fetus DATE OF EXAM: 09/16/2019 COMPARISON: None CLINICAL HISTORY: spotting, cramping, respiratory illness, cramping an d light spotting, [id number] TECHNIQUE: OBTA GESTATIONAL AGE / DATING Physician Established: Not yet established Dates by LMP: (19 weeks/6 days) EDC: Dates by First Scan: No previous this is first scan Dates by Current Scan: (17 weeks/0 days) EDC: 02/24/2020 SURVEY IUP: Single PLACENTA: Anterior PREVIA: No Previa MCKAYLA: 14.2 cm Normal CERVICAL LENGTH (transabdominal: norm > 3.0cm): 3.2 cm BIOMETRY PRESENTATION: Variable LIE: Longitudinal BPD: 3.5 cm 16 weeks / 6 days HC: 13.4 cm 16 weeks / 6 days AC: 12.3 cm 18 weeks / 0 days FL: 2.2 cm 16 weeks / 5 days ESTIMATED WEIGHT IN GRAMS: 188 grams ESTIMATED WEIGHT IN LBS/OZ: 0 lbs. 7 oz. WEIGHT PERCENTAGE BASED ON ESTABLISHED DATES: 3% HC/AC: 1.1 Normal FL/AC: 18.2 Normal HEART RATE: 161 bpm RHYTHM: Normal IMPRESSION: 1. Single intrauterine gestation estimated at 17 weeks 0 days gestation based on the current ultrasou nd. Cardiac activity measures 161 bpm was observed during the study.
[2019-09-16 16:28] LABS: ALT 51 U/L (4-34); AST 31 U/L (14-36); African American GFR (CKD) >90 (>60 ml/min/1.73 sqM); Albumin 3.4 g/dL (3.5-5.0); Alkaline Phosphatase 110 U/L (38-126); Anion Gap 7 mmol/L; Blood Urea Nitrogen 3 mg/dL (7-17); Carbon Dioxide 23 mmol/L (22-30); Chloride 106 mmol/L (98-107); Glucose 79 mg/dL (74-99); Non-African American GFR(CKD) >90 (>60 ml/min/1.73 sqM); Potassium 3.7 mmol/L (3.5-5.1); Sodium 136 mmol/L (137-145); Total Bilirubin 0.5 mg/dL (0.2-1.3); Total Protein 6.2 g/dL (6.3-8.2)
[2019-09-16 17:13] VITALS: BP 111/70; PULSE 91; RESP 18; TEMP 98.2
== END 2019-09-16 17:23 | disposition home or self-care (01) ==
LOC: EC 14:05
DX: O20.9 Hemorrhage in early pregnancy, unspecified (principal); O99.512 Diseases of the respiratory system complicating pregnancy, second trimester; J06.9 Acute upper respiratory infection, unspecified; O99.89 Other specified diseases and conditions complicating pregnancy, childbirth and the puerperium; R10.30 Lower abdominal pain, unspecified; O99.352 Diseases of the nervous system complicating pregnancy, second trimester; F32.9 Major depressive disorder, single episode, unspecified; F41.9 Anxiety disorder, unspecified; Z88.1 Allergy status to other antibiotic agents; Z88.2 Allergy status to sulfonamides; Z88.8 Allergy status to other drugs, medicaments and biological substances; Z79.899 Other long term (current) drug therapy; Z90.89 Acquired absence of other organs; Z98.890 Other specified postprocedural states; Z3A.17 17 weeks gestation of pregnancy; Z53.29 Procedure and treatment not carried out because of patient's decision for other reasons
CPT/HCPCS: 36415; 71046; 76805; 80053; 81001; 81025; 84702; 85025; 86900; 86901; 87086; 99284

== ENCOUNTER 2020-02-18 06:06 | Inpatient (IN) | payer BC, OTHER ==
[2020-02-16 14:45] VITALS: BMI 35.4
[2020-02-18] MEDS ORDERED: CITRIC ACID-SODIUM CITRATE 15 ML CUP PO ONE (06:20)
[2020-02-18] MEDS ORDERED: CLINDAMYCIN 600 MG in DEXTROSE 5% IN WATER 50 ML IVPB STA ×2 (06:20)
[2020-02-18] MEDS: LACTATED RINGERS 1,000 ML IV SCH (06:28)
[2020-02-18 06:42] LABS: Basophils % (A) 0 %; Eosinophils # (A) 0.1 k/uL (0-0.7); Eosinophils % (A) 1 %; HCT 32.5 % (34.0-46.0); HGB 10.1 gm/dL (11.4-16.0); Hypochromasia Moderate; Lymphocytes # (A) 2.6 k/uL (1.0-4.8); Lymphocytes % (A) 33 %; MCH 22.8 pg (25.0-35.0); MCV 73.7 fL (80.0-100.0); Mean Platelet Volume 7.1; Microcytosis Slight; Monocytes # (A) 0.5 k/uL (0-1.0); Monocytes % (A) 6 %; Neutrophils # (A) 4.5 k/uL (1.3-7.7); Neutrophils % (A) 57 %; Platelet Count 353 k/uL (150-450); Poikilocytosis Slight; RBC 4.41 m/uL (3.80-5.40); RDW 15.9 % (11.5-15.5); WBC 7.9 k/uL (3.8-10.6)
[2020-02-18] MEDS ORDERED: ONDANSETRON 4 MG/2 ML VIAL ONE (08:00)
[2020-02-18] MEDS ORDERED: MORPHINE SULFATE (PF) 0.3 MG/0.3 ML SYR ONE (08:00)
[2020-02-18] MEDS ORDERED: NALBUPHINE 10 MG/ML (1 ML AMP) ONE (08:00)
[2020-02-18] MEDS ORDERED: HYDROmorphone (PF) 1 MG/ML ONE (08:00)
[2020-02-18] MEDS ORDERED: PROPOFOL 10 MG/ML 20 ML VIAL IV ONE (08:00)
[2020-02-18] MEDS ORDERED: OXYTOCIN 10 UNIT/ML 1 ML VIAL ONE (08:00)
[2020-02-18] MEDS ORDERED: METOCLOPRAMIDE 5 MG/ML 2 ML VIAL IVP PRN (08:43)
[2020-02-18] MEDS ORDERED: ONDANSETRON 4 MG/2 ML VIAL IVP PRN (08:43)
[2020-02-18] MEDS ORDERED: diphenhydrAMINE 50 MG/ML 1 ML VIAL IVP PRN ×2 (08:43)
[2020-02-18] MEDS ORDERED: LANOLIN CREAM 5 GM TUBE TOPICAL PRN (08:43)
[2020-02-18] MEDS ORDERED: diphenhydrAMINE 50 MG CAP PO PRN (08:43)
[2020-02-18] MEDS ORDERED: ACETAMINOPHEN TAB 325 MG TAB PO PRN (08:43)
[2020-02-18] MEDS ORDERED: NALOXONE 0.4 MG/ML 1 ML VIAL IV PRN (08:43)
[2020-02-18] MEDS ORDERED: diphenhydrAMINE 25 MG CAP PO PRN (08:43)
[2020-02-18] MEDS ORDERED: ZOLPIDEM 5 MG TAB PO PRN (08:43)
[2020-02-18] MEDS ORDERED: OXYTOCIN 20 UNITS/1000 ML NS 1,000 ML IV SCH (08:45)
[2020-02-18] MEDS: KETOROLAC 30 MG/ML 1 ML VIAL IVP PRN ×2 (11:14→19:50)
--- NOTE | 2020-02-18 12:55 | P.HPOB ---
History of Present Illness H&P Date: 02/18/20 Chief Complaint: RLTCS with TL 24-year-old presents for repeat low transverse with tubal ligation at 39 weeks and 1 day. Review of Systems All systems: negative Constitutional: Denies chills, Denies fever Eyes: denies blurred vision, denies pain Ears, nose, mouth and throat: Denies headache, Denies sore throat Cardiovascular: Denies chest pain, Denies shortness of breath Respiratory: Denies cough Gastrointestinal: Denies abdominal pain, Denies diarrhea, Denies nausea, Denies vomiting Genitourinary: Denies dysuria, Denies hematuria Musculoskeletal: Denies myalgias Integumentary: Denies pruritus, Denies rash Neurological: Denies numbness, Denies weakness Psychiatric: Denies anxiety, Denies depression Endocrine: Denies fatigue, Denies weight change Past Medical History Past Medical History: Asthma Additional Past Medical History / Comment(s): HTN WITH PAST WITH TWINS, -LMP 05/2019. Obstetric history: She has had 3 previous sections, last one was for twins. This is her fourth and she's had care with me since the first trimester. Blood type is O+, and because negative, rubella immune, hepatitis B-, RPR nonreactive, GBS negative. History of Any Multi-Drug Resistant Organisms: None Reported Past Surgical History: Adenoidectomy, Section, Tonsillectomy Additional Past Surgical History / Comment(s): abscess removed from neck Past Anesthesia/Blood Transfusion Reactions: No Reported Reaction, Motion Sickness Past Psychological History: Anxiety, Depression Additional Psychological History / Comment(s): NO CURRENT MEDS Smoking Status: Never smoker Past Alcohol Use History: None Reported Past Drug Use History: None Reported Additional Drug Use History / Comment(s): STATES MARIJUANA AT AGE 16. - Past Family History Mother Family Medical History: Hypertension Medications and Allergies Home Medications Medication Instructions Recorded Confirmed Type Albuterol Inhaler [Ventolin Hfa 1 puff INHALATION DIRECTED PRN 02/16/20 02/18/20 History Inhaler] Pnv No.95/Ferrous Fum/Folic AC 1 each PO DAILY 02/16/20 02/18/20 History [ Multivitamin Tablet] Allergies Allergy/AdvReac Type Severity Reaction Status Date / Time cephalexin monohydrate Allergy Rash/Hives Verified 02/18/20 06:22 [From Keflex] erythromycin base Allergy Rash/Hives Verified 02/18/20 06:22 [Erythromycin Base] lamotrigine [From Lamictal] Allergy Rash/Hives Verified 02/18/20 06:22 sulfamethoxazole Allergy Rash/Hives Verified 02/18/20 06:22 [From Bactrim] trimethoprim [From Bactrim] Allergy Rash/Hives Verified 02/18/20 06:22 vancomycin Allergy Rash/Hives Verified 02/18/20 06:22 Exam Osteopathic Statement: *. No significant issues noted on an osteopathic structural exam other than those noted in the History and Physical/Consult. Vital Signs Temp Pulse Resp BP Pulse Ox 02/18/20 11:51 98.2 F 84 16 123/76 02/18/20 10:54 98.2 F 76 16 123/71 02/18/20 10:28 83 16 121/67 98 02/18/20 09:58 89 16 121/70 98 02/18/20 09:43 72 16 114/64 97 02/18/20 09:28 98.3 F 74 16 102/53 95 02/18/20 09:13 77 16 116/55 96 02/18/20 08:58 87 16 114/55 95 02/18/20 06:40 97.2 F L 100 16 127/59 95 Intake and Output 02/17/20 02/18/20 02/18/20 22:59 06:59 14:59 Intake Total 3000 Output Total 800 Balance 2200 Intake: IV 3000 Output: Urine 300 Estimated Blood Loss 500 Other: Weight 102.512 kg Heart: Regular rate and rhythm Lungs: Clear to auscultation bilaterally Abdomen: Soft, nontender Extremities: Negative Homans sign Results Result Diagrams: 02/18/20 06:20 Abnormal Lab Results - Last 24 Hours (Table) 02/18/20 Range/Units 06:20 Hgb 10.1 L (11.4-16.0) gm/dL Hct 32.5 L (34.0-46.0) % MCV 73.7 L (80.0-100.0) fL MCH 22.8 L (25.0-35.0) pg RDW 15.9 H (11.5-15.5) % Assessment and Plan (1) Previous section Current Visit: Yes Status: Acute Code(s): Z98.891 - HISTORY OF UTERINE SCAR FROM PREVIOUS SURGERY SNOMED Code(s): 803582661 (2) Family planning Current Visit: Yes Status: Acute Code(s): Z30.09 - ENCOUNTER FOR OTH GENERAL CNSL AND ADVICE ON CONTRACEPTION SNOMED Code(s): 800023885 Plan: 1. Repeat low transverse with tubal ligation
--- NOTE | 2020-02-18 12:58 | P.OP ---
Date of Procedure: 02/18/20 Preoperative Diagnosis: 1. Previous section 2. Family planning 3. at 39 weeks and 1 day Postoperative Diagnosis: 1. Previous section 2. Family planning 3. at 39 weeks and 1 day Procedure(s) Performed: Repeat low transverse with tubal ligation Anesthesia: spinal Surgeon: Marion Lee Central Office Mechanic #1: Jacek Pedersen Estimated Blood Loss (ml): 500 IV fluids (ml): 600 Urine output (ml): 50 Pathology: other (Bilateral fallopian tube segments) Condition: stable Disposition: floor Operative Findings: Viable male, Apgars 8 at 1 minute, 5 at 5 minutes, 9 at 10 minutes. Weight 8 lbs. 7 oz. Normal uterus, tubes, ovaries. The lower uterine segment was rather thin. Description of Procedure: Patient was taken to the operating room where spinal anesthesia was found be adequate. She was prepped and draped in normal sterile fashion in dorsal supine position with a leftward tilt. Pfannenstiel skin incision was made the scalpel and carried through to the underlying layer of fascia with the scalpel. Fascia was incised in midline and carried bilaterally with the Simms scissors. The superior aspect of the fascial incision was grasped with Pennock clamps elevated and the underlying rectus muscles dissected off with the Simms's. Attention was then turned to inferior aspect of same incision which in a similar fashion was grasped tented up and the underlying rectus muscles dissected off with the Simms's. The rectus muscles were the midline and the peritoneum was identified tented up and entered sharply with the scalpel. The incision was extended superiorly and inferiorly with good visualization of the bladder. The bladder blade was inserted and the vesicouterine peritoneum was incised the Metzenbaums then carried bilaterally and bladder flap created digitally. A low transverse incision was then made on the uterus with the scalpel. This was carried bilaterally and digital manner. Infant's head delivered atraumatically, nose and mouth bulb suctioned, cord clamped and cut, infant handed off to waiting nurses. Apgars were 8 at 1 minute, 5 at 5 minutes, 9 at 10 minutes, weight 8 lbs. 7 oz. Placenta delivered manually, intact with three-vessel cord. The uterus is exteriorized and cleared of all clots and debris. The uterine incision was closed with 0 Vicryl in a running locked fashion. Second layer of the same sutures used in imbricating fashion to obtain excellent hemostasis. Both ovaries and tubes appeared normal. The right fallopian tube was grasped with a hemostat and a window was made in the mesosalpinx with the Bovie. The right fallopian tube was doubly ligated and a segment was removed. The pedicles were cauterized with the Bovie. The left fallopian tube was grasped with hemo stat window was made in the mesosalpinx with the Bovie. The left fallopian tube was then doubly ligated and a segment was removed. The pedicles were cauterized with the Bovie. The uterus was placed back into the abdomen. The peritoneum was reapproximated using 2-0 Vicryl in a running fashion. The muscles were reapproximated using 2-0 Vicryl in interrupted fashion. The fascia was reapproximated using 0 Vicryl in a running fashion. The subcutaneous tissues closed with 3-0 Vicryl running fashion. The skin was closed jono. Patient tolerated the procedure well, sponge and instrument counts were correct times 2 and she was taken to the recovery room in stable condition.
[2020-02-18] MEDS ORDERED: ZOLPIDEM 5 MG TAB ONE (23:50)
[2020-02-19] MEDS ORDERED: SIMETHICONE 80 MG CHEWABLE PO PRN (00:10)
[2020-02-19] MEDS: SENNOSIDES-DOCUSATE SODIUM 1 EACH TAB PO SCH ×3 (04:43→19:41)
[2020-02-19 05:57] LABS: Basophils % (A) 0 %; Eosinophils # (A) 0.1 k/uL (0-0.7); Eosinophils % (A) 1 %; HCT 27.5 % (34.0-46.0); Hypochromasia Marked; Lymphocytes # (A) 2.4 k/uL (1.0-4.8); Lymphocytes % (A) 31 %; MCH 22.6 pg (25.0-35.0); MCHC 30.3 g/dL (31.0-37.0); MCV 74.5 fL (80.0-100.0); Mean Platelet Volume 7.4; Microcytosis Slight; Monocytes # (A) 0.5 k/uL (0-1.0); Monocytes % (A) 7 %; Neutrophils # (A) 4.5 k/uL (1.3-7.7); Neutrophils % (A) 58 %; Platelet Count 277 k/uL (150-450); RDW 15.9 % (11.5-15.5); WBC 7.8 k/uL (3.8-10.6)
[2020-02-19 06:11] LABS: HGB 8.4 gm/dL (11.4-16.0)
[2020-02-19] MEDS: IBUPROFEN 600 MG TAB PO PRN ×3 (06:30→19:41)
[2020-02-19] MEDS: HYDROcodone/APAP 7.5-325MG 1 EACH TAB PO PRN ×2 (09:22→15:49)
--- NOTE | 2020-02-19 09:34 | P.PN ---
Progress Note - Text Progress Note Date: 02/19/20 (645 AM) Patient was seen at bedside at 645 AM. Patient is postop day 1 from repeat section with Duramorph spinal for pain. VAS score is 2/10. Patient has mild side effects in the form of nausea with 1 episode of emesis, which has resolved. Lower extremity sensation and motor function is intact. Patient has ambulated. She denies headache.
--- NOTE | 2020-02-19 09:43 | P.PNOBGPC ---
Subjective - Subjective Principal diagnosis: Status post repeat low transverse with tubal ligation Interval history: Patient seen and examined. Denies nausea, vomiting, chest pain, shortness of breath or any calf pain. Her incisional pain is controlled little bit worse as the Duramorph spinal was wearing off. She will start [place] and Motrin now. Her was having some respiratory distress and issues with tone per the file clerk data entry. The baby was shipped to [facility]. The patient would really like to be discharged to see her baby. Patient reports: Reports appetite normal, Reports voiding normally, Reports ambulating normally, Denies pain well controlled Objective - Vital Signs Latest vital signs: Vital Signs Temp Pulse Pulse Resp BP BP Pulse Ox 02/19/20 04:00 98.5 F 91 14 114/76 02/19/20 00:00 98.4 F 70 16 110/60 02/18/20 20:00 98.4 F 75 16 113/59 02/18/20 16:00 97.9 F 80 16 118/77 02/18/20 11:51 98.2 F 84 16 123/76 02/18/20 10:54 98.2 F 76 16 123/71 02/18/20 10:28 83 16 121/67 98 02/18/20 09:58 89 16 121/70 98 02/18/20 09:43 72 16 114/64 97 Intake and Output 02/18/20 02/19/20 02/19/20 22:59 06:59 14:59 Output Total 300 125 Balance -300 -125 Output: Urine 300 125 - Exam Lungs: bilateral: normal Chest: Normal S1, Normal S2 Extremities: Present: normal Abdomen: Present: normal appearance, soft. Absent: distention, tenderness Incision: Present: normal, dry, intact Uterus: Present: normal, firm - Labs Labs: Abnormal Lab Results - Last 24 Hours (Table) 02/19/20 Range/Units 05:33 RBC 3.70 L (3.80-5.40) m/uL Hgb 8.4 L D (11.4-16.0) gm/dL Hct 27.5 L (34.0-46.0) % MCV 74.5 L (80.0-100.0) fL MCH 22.6 L (25.0-35.0) pg MCHC 30.3 L (31.0-37.0) g/dL RDW 15.9 H (11.5-15.5) % Assessment and Plan (1) Previous section Current Visit: Yes Status: Resolved Code(s): Z98.891 - HISTORY OF UTERINE SCAR FROM PREVIOUS SURGERY SNOMED Code(s): 368623918 (2) Family planning Current Visit: Yes Status: Resolved Code(s): Z30.09 - ENCOUNTER FOR OT GENERAL CNSL AND ADVICE ON CONTRACEPTION SNOMED Code(s): 968208704 (3) Status post repeat low transverse section Current Visit: Yes Status: Acute Code(s): Z98.891 - HISTORY OF UTERINE SCAR FROM PREVIOUS SURGERY SNOMED Code(s): 828375581 (4) Status post tubal ligation at time of delivery, current hosp Current Visit: Yes Status: Acute Code(s): O80 - ENCOUNTER FOR FULL-TERM UNCOMPLICATED DELIVERY; Z30.2 - ENCOUNTER FOR STERILIZATION SNOMED Code(s): 457530368 Plan: 1. By mouth pain medicine 2. Increase ambulation 3. Prolonged discussion with the patient about whether or not she should be discharged postoperative day one after her . She has had C-sections in the past and does know what to look for as far as increased pain, bleeding, signs of infection. Advised the patient that as long as she can ambulate without difficulty, her pain is controlled with the oral medications, she can tolerate a regular diet then she may be discharged this afternoon.
[2020-02-19] MEDS: LACTATED RINGERS 1,000 ML IV SCH ×3 (13:20→13:21)
[2020-02-20] MEDS: HYDROcodone/APAP 7.5-325MG 1 EACH TAB PO PRN ×3 (00:30→14:16)
[2020-02-20] MEDS: SENNOSIDES-DOCUSATE SODIUM 1 EACH TAB PO SCH (07:56)
[2020-02-20] MEDS ORDERED: HYDROcodone/APAP 5-325MG 1 EACH TAB PO PRN (08:35)
[2020-02-20] MEDS ORDERED: CITALOPRAM HYDROBROMIDE 20 MG TAB PO SCH (09:00)
[2020-02-20] MEDS: IBUPROFEN 600 MG TAB PO PRN (09:47)
[2020-02-20 13:14] VITALS: BP 127/78; PULSE 75; RESP 24; TEMP 97.6
--- NOTE | 2020-03-03 23:11 | P.DS ---
Providers Date of admission: 02/18/20 06:06 Expected date of discharge: 02/20/20 Attending physician: Marion Lee Primary care physician: Stated None - Discharge Diagnosis(es) (1) Previous section Status: Resolved (2) Family planning Status: Resolved (3) Status post repeat low transverse section Status: Acute (4) Status post tubal ligation at time of delivery, current hosp Status: Acute Hospital Course: Patient presented for repeat low transverse with tubal ligation. She had with this procedure without complication. Her baby, however, did have some problems transitioning and was [facility]. Lashes pain is controlled, she is tolerating regular diet and passing flatus. She is ambulating and voiding without difficulty. Mary is discharged home postoperative day #2 in stable condition to follow-up with me in one week. Plan - Discharge Summary Discharge Rx Participant: Yes New Discharge Prescriptions: New Ibuprofen [Motrin] 600 mg PO Q6HR PRN #30 tab PRN Reason: Mild Pain Or Fever >= 100.5 HYDROcodone/APAP 7.5-325MG [[place] 7.5-325] 1 each PO Q6H PRN #12 tab PRN Reason: Severe Pain Citalopram Hydrobromide [CeleXA] 20 mg PO DAILY #30 tab No Action Albuterol Inhaler [Ventolin Hfa Inhaler] 1 puff INHALATION DIRECTED PRN PRN Reason: Shortness Of Breath Pnv No.95/Ferrous Fum/Folic AC [ Multivitamin Tablet] 1 each PO DAILY Discharge Medication List Albuterol Inhaler [Ventolin Hfa Inhaler] 1 puff INHALATION DIRECTED PRN 02/16/20 [History] Pnv No.95/Ferrous Fum/Folic AC [ Multivitamin Tablet] 1 each PO DAILY 02/16/20 [History] HYDROcodone/APAP 7.5-325MG [[place] 7.5-325] 1 each PO Q6H PRN #12 tab 02/19/20 [Rx] Ibuprofen [Motrin] 600 mg PO Q6HR PRN #30 tab 02/19/20 [Rx] Citalopram Hydrobromide [CeleXA] 20 mg PO DAILY #30 tab 02/20/20 [Rx] Follow up Appointment(s)/Referral(s): Marion Lee DO [Doctor of Osteopathic Medicine] - 1 Week Discharge Disposition: HOME SELF-CARE
== END 2020-02-20 14:30 | disposition home or self-care (01) | DRG 785 ==
LOC: 4FBP 06:06
PROVIDERS: ADMIT Obstetrics & Gynecology; ATTEND Obstetrics & Gynecology
PROC: 0UB70ZZ Excision of Bilateral Fallopian Tubes, Open Approach (ICD-10-PCS; 2020-02-18)
PROC: 10D00Z1 Extraction of Products of Conception, Low, Open Approach (ICD-10-PCS; principal; 2020-02-18 08:00)
DX: O34.211 Maternal care for low transverse scar from previous cesarean delivery (principal); O99.52 Diseases of the respiratory system complicating childbirth; J45.909 Unspecified asthma, uncomplicated; R11.2 Nausea with vomiting, unspecified; O89.8 Other complications of anesthesia during the puerperium; Z37.0 Single live birth; Z3A.39 39 weeks gestation of pregnancy; Z30.2 Encounter for sterilization; Z79.899 Other long term (current) drug therapy; Z86.59 Personal history of other mental and behavioral disorders; Z88.1 Allergy status to other antibiotic agents; Z88.2 Allergy status to sulfonamides; Z82.49 Family history of ischemic heart disease and other diseases of the circulatory system
CPT/HCPCS: 85025; 86850; 86900; 86901; 88302

== ENCOUNTER 2021-03-10 20:50 | Emergency (ER) | payer BC, OTHER ==
--- NOTE | 2021-03-10 21:16 | ED ---
Female Urogenital HPI - General Chief complaint: Vaginal Bleeding Stated complaint: Vaginal Bleeding Time Seen by Provider: 03/10/21 21:01 Source: patient Mode of arrival: ambulatory Limitations: no limitations - History of Present Illness Initial comments: 25 year-old male patient presents to the emergency department for evaluation of heavy vaginal bleeding. States that she started to have vaginal bleeding around 0300 this morning. States the bleeding has been heavy and she is passing large amount of blood clots. States she is changing her tampon every 15 minutes. Reports lower abdominal cramping. States her last menstrual period was 2 weeks ago, normal flow and duration. She did have tubal ligation in the past. 2 c- sections. States she did have intercourse with her boyfriend yesterday, denies any pain, or known injury. States she did start a control a couple of months ago due to painful cramping states it was not working so she stopped taking it less than a month after starting it. Patient denies any recent rash, fever, chills, cough, shortness of breath, chest pain, nausea, vomiting, diarrhea, constipation, back pain, numbness, tingling, dizziness, weakness, dysuria, urinary urgency, urinary frequency, headache, visual changes, or any other complaints. - Related Data Home Medications Medication Instructions Recorded Confirmed Albuterol Inhaler [Ventolin Hfa 1 puff INHALATION DIRECTED PRN 02/16/20 02/18/20 Inhaler] Pnv No.95/Ferrous Fum/Folic AC 1 each PO DAILY 02/16/20 02/18/20 [ Multivitamin Tablet] Previous Rx's Medication Instructions Recorded HYDROcodone/APAP 7.5-325MG [[place] 1 each PO Q6H PRN #12 tab 02/19/20 7.5-325] Ibuprofen [Motrin] 600 mg PO Q6HR PRN #30 tab 02/19/20 Citalopram Hydrobromide [CeleXA] 20 mg PO DAILY #30 tab 02/20/20 Allergies Allergy/AdvReac Type Severity Reaction Status Date / Time cephalexin monohydrate Allergy Rash/Hives Verified 03/10/21 20:57 [From Keflex] erythromycin base Allergy Rash/Hives Verified 03/10/21 20:57 [Erythromycin Base] lamotrigine [From Lamictal] Allergy Rash/Hives Verified 03/10/21 20:57 sulfamethoxazole Allergy Rash/Hives Verified 03/10/21 20:57 [From Bactrim] trimethoprim [From Bactrim] Allergy Rash/Hives Verified 03/10/21 20:57 vancomycin Allergy Rash/Hives Verified 03/10/21 20:57 Review of Systems ROS Statement: Those systems with pertinent positive or pertinent negative responses have been documented in the HPI. ROS Other: All systems not noted in ROS Statement are negative. Past Medical History Past Medical History: Asthma Additional Past Medical History / Comment(s): HTN WITH PAST WITH TWINS, -LMP 05/2019. Obstetric history: She has had 3 previous sections, last one was for twins. This is her fourth and she's had care with me since the first trimester. Blood type is O+, and because negative, rubella immune, hepatitis B-, RPR nonreactive, GBS negative. History of Any Multi-Drug Resistant Organisms: None Reported Past Surgical History: Adenoidectomy, Section, Tonsillectomy Additional Past Surgical History / Comment(s): abscess removed from neck Past Anesthesia/Blood Transfusion Reactions: No Reported Reaction, Motion Sickness Past Psychological History: Anxiety, Depression Smoking Status: Never smoker Past Alcohol Use History: None Reported Past Drug Use History: None Reported - Past Family History Mother Family Medical History: Hypertension General Exam Limitations: no limitations General appearance: alert, in no apparent distress, other (This is a well- developed, well-nourished adult female patient in no acute distress. Vital signs upon presentation temperature 98.3F, pulse 84, respirations 18, blood pressure 146/99, pulse ox 98% on room air.) Respiratory exam: Present: normal lung sounds bilaterally. Absent: respiratory distress, wheezes, rales, rhonchi, stridor Cardiovascular Exam: Present: regular rate, normal rhythm, normal heart sounds. Absent: systolic murmur, diastolic murmur, rubs, gallop, clicks GI/Abdominal exam: Present: soft, tenderness (Left lower quadrant), normal bowel sounds. Absent: distended, guarding, rebound, rigid Neurological exam: Present: alert, oriented X3, CN II-XII intact Psychiatric exam: Present: normal affect, normal mood Skin exam: Present: warm, dry, intact, normal color. Absent: rash Course Vital Signs 03/10/21 03/10/21 20:53 22:34 Temperature 98.3 F 97.9 F Pulse Rate 84 83 Respiratory 18 16 Rate Blood Pressure 146/99 125/69 O2 Sat by Pulse 98 99 Oximetry Medical Decision Making - Medical Decision Making 25-year-old female patient presented for evaluation of heavy vaginal bleeding and passage of blood clots. Physical examination did reveal some mild left lower quadrant tenderness. Did perform vaginal exam, mild dark red bleeding noted at this time coming from the cervical os. No evidence for vaginal laceration or tear. She did test negative for . V/S within normal range. Discussed findings and results with her. She'll be discharged to follow up with her viner operator for further evaluation as soon as possible. Return parameters were discussed in detail. She verbalizes understanding and agrees with this plan. Case discussed with my attending Dr. Banegas. - Lab Data Lab Results 03/10/21 Range/Units 21:25 Urine HCG, Qual Not Detected (Not Detectd) Disposition Clinical Impression: Dysfunctional uterine bleeding Disposition: HOME SELF-CARE Condition: Good Instructions (If sedation given, give patient instructions): Dysfunctional Uterine Bleeding (ED) Additional Instructions: Follow-up with your viner operator for further evaluation as soon as possible. Return to the emergency department for any new, worsening, or concerning symptoms. Is patient prescribed a controlled substance at d/c from ED?: No Referrals: Robert Joya MD [Primary Care Provider] - 1-2 days Time of Disposition: 22:22
[2021-03-10 22:35] VITALS: BP 125/69; PULSE 83; RESP 16; TEMP 97.9
== END 2021-03-10 22:36 | disposition home or self-care (01) ==
LOC: EC 20:50
DX: N93.8 Other specified abnormal uterine and vaginal bleeding (principal); J45.909 Unspecified asthma, uncomplicated; F32.9 Major depressive disorder, single episode, unspecified; F41.9 Anxiety disorder, unspecified; Z82.49 Family history of ischemic heart disease and other diseases of the circulatory system; Z79.51 Long term (current) use of inhaled steroids; Z79.891 Long term (current) use of opiate analgesic; Z79.1 Long term (current) use of non-steroidal anti-inflammatories (NSAID); Z79.899 Other long term (current) drug therapy; Z88.1 Allergy status to other antibiotic agents; Z88.2 Allergy status to sulfonamides; Z88.8 Allergy status to other drugs, medicaments and biological substances
CPT/HCPCS: 81025; 99284

== ENCOUNTER 2023-02-08 12:41 | Emergency (ER) | payer BC, OTHER ==
[2023-02-08] MEDS ORDERED: KETOROLAC 15 MG/ML 1 ML VIAL IM STA (13:07)
--- NOTE | 2023-02-08 13:25 | ED ---
General Adult HPI - General Chief complaint: Dental/Oral Stated complaint: tooth pain, cant open jaw Time Seen by Provider: 02/08/23 12:56 Source: patient, RN notes reviewed Mode of arrival: ambulatory Limitations: no limitations - History of Present Illness Initial comments: 27-year-old female with no significant past medical history presents to the emergency department with a chief complaint of dental pain. Patient reports worsening dental pain for the last 2 days. She denies any injury or trauma. She attempted to see her dentist earlier today however they are unable to fit her in. Eyes any fevers, shortness of breath, dyspnea, sore throat. - Related Data Home Medications Medication Instructions Recorded Confirmed Albuterol Inhaler [Ventolin Hfa 1 puff INHALATION DIRECTED PRN 02/16/20 02/18/20 Inhaler] Pnv No.95/Ferrous Fum/Folic AC 1 each PO DAILY 02/16/20 02/18/20 [ Multivitamin Tablet] Previous Rx's Medication Instructions Recorded HYDROcodone/APAP 7.5-325MG [[place] 1 each PO Q6H PRN #12 tab 02/19/20 7.5-325] Ibuprofen [Motrin] 600 mg PO Q6HR PRN #30 tab 02/19/20 Citalopram Hydrobromide [CeleXA] 20 mg PO DAILY #30 tab 02/20/20 Clindamycin [Cleocin] 150 mg PO Q6H #40 capsule 02/08/23 Ketorolac [Toradol] 10 mg PO Q8HR #15 tab 02/08/23 Allergies Allergy/AdvReac Type Severity Reaction Status Date / Time cephalexin monohydrate Allergy Rash/Hives Verified 02/08/23 12:54 [From Keflex] erythromycin base Allergy Rash/Hives Verified 02/08/23 12:54 [Erythromycin Base] lamotrigine [From Lamictal] Allergy Rash/Hives Verified 02/08/23 12:54 sulfamethoxazole Allergy Rash/Hives Verified 02/08/23 12:54 [From Bactrim] trimethoprim [From Bactrim] Allergy Rash/Hives Verified 02/08/23 12:54 vancomycin Allergy Rash/Hives Verified 02/08/23 12:54 Review of Systems ROS Statement: Those systems with pertinent positive or pertinent negative responses have been documented in the HPI. ROS Other: All systems not noted in ROS Statement are negative. Past Medical History Past Medical History: Asthma Additional Past Medical History / Comment(s): HTN WITH PAST WITH TWINS, -LMP 05/2019. Obstetric history: She has had 3 previous sections, last one was for twins. This is her fourth and she's had care with me since the first trimester. Blood type is O+, and because negative, rubella immune, hepatitis B-, RPR nonreactive, GBS negative. History of Any Multi-Drug Resistant Organisms: None Reported Past Surgical History: Adenoidectomy, Section, Tonsillectomy Additional Past Surgical History / Comment(s): abscess removed from neck Past Anesthesia/Blood Transfusion Reactions: No Reported Reaction, Motion Sickness Past Psychological History: Anxiety, Depression Smoking Status: Never smoker Past Alcohol Use History: None Reported Past Drug Use History: None Reported - Past Family History Mother Family Medical History: Hypertension General Exam - General Exam Comments Initial Comments: General: Alert, in no acute distress, Pt afebrile Head: atraumatic normocephalic. Eyes PERRL, EOMI intact, mucous membranes moist , Tooth 15 with dental caries, no evidence of dental abscess Respiratory: Lungs clear to auscultation bilaterally Cardiovascular: Heart rate regular rate and rhythm Abdominal: Soft without guarding or rebound Extremities: Normal inspection with full range of motion and normal capillary refill Neuroogic: alert and oriented 3, CN II-XII intact, able to ambulate with steady gait Skin: warm dry and intact with normal color Limitations: no limitations Course Vital Signs 02/08/23 02/08/23 12:51 14:18 Temperature 97.8 F 97.9 F Pulse Rate 75 72 Respiratory 20 16 Rate Blood Pressure 122/84 124/79 O2 Sat by Pulse 99 99 Oximetry Medical Decision Making - Medical Decision Making Was pt. sent in by a medical professional or institution (, PA, BULK RECEIVER, urgent care, hospital, or halfway...) When possible be specific @ -[No] Did you speak to anyone other than the patient for history (EMS, parent, family, police, friend...)? What history was obtained from this source @ -[No] Did you review nursing and triage notes (agree or disagree)? Why? @ -[I reviewed and agree with nursing and triage notes] Were old charts reviewed (outside hosp., previous admission, EMS record, old EKG, old radiological studies, urgent care reports/EKG's, halfway records)? Report findings @ -[No old charts were reviewed] Differential Diagnosis (chest pain, altered mental status, abdominal pain women, abdominal pain men, vaginal bleeding, weakness, fever, dyspnea, syncope, headache, dizziness, GI bleed, back pain, seizure, CVA, palpatations, mental health, musculoskeletal)? @ -[not applicable] EKG interpreted by me (3pts min.). @ -[As above] X-rays interpreted by me (1pt min.). @ -[None done] CT interpreted by me (1pt min.). @ -[None done] U/S interpreted by me (1pt. min.). @ -[None done] What testing was considered but not performed or refused? (CT, X-rays, U/S, labs)? Why? @ -[None] What meds were considered but not given or refused? Why? @ -[None] Did you discuss the management of the patient with other professionals ( professionals i.e. , PA, BULK RECEIVER, lab, RT, psych nurse, manager social services, puffer tender, teacher, hospital chief executive officer, director of casework services)? Give summary @ -[No] Was smoking cessation discussed for >3mins.? @ -[No] Was critical care preformed (if so, how long)? @ -[No] Were there social determinants of health that impacted care today? How? (Homelessness, low income, unemployed, alcoholism, drug addiction, transportation, low edu. Level, literacy, decrease access to med. care, skilled nursing, rehab)? @ -[No] Was there de-escalation of care discussed even if they declined (Discuss DNR or withdrawal of care, Hospice)? DNR status @ -[No] What co-morbidities impacted this encounter? (DM, HTN, Smoking, COPD, CAD, Cancer, CVA, ARF, Chemo, Hep., AIDS, mental health diagnosis, sleep apnea, morbid obesity)? @ -[None] Was patient admitted / discharged? Hospital course, mention meds given and route, prescriptions, significant lab abnormalities, going to OR and other pertinent info. @ -Discharged. This is a 27-year-old female who presents the emergency department with Dental pain. Patient had a thorough history and physical exam performed in the ED. Physical exam essentially unremarkable. Heart rate regular rate and rhythm, lungs are to auscultation bilaterally, abdomen soft non-tender. Tooth 15 with severe dental caries. Return precautions were discussed at length. Patient discharged in stable condition. She was given a shot of Toradol with symptomatically relief. Instructed to follow up with her dentist. Case discussed with Dr. Francisco [facility] who agrees with plan of care Undiagnosed new problem with uncertain prognosis? @ -[No] Drug Therapy requiring intensive monitoring for toxicity (Heparin, Nitro, Insulin, Cardizem)? @ -[No] Were any procedures done? @ -[No] Diagnosis/symptom? @ -Dental pain - dental caries Acute, or Chronic, or Acute on Chronic? @ -Acute Uncomplicated (without systemic symptoms) or Complicated (systemic symptoms)? @ -Uncomplicated Side effects of treatment? @ -[No] Exacerbation, Progression, or Severe Exacerbation? @ -[No] Poses a threat to life or bodily function? How? (Chest pain, [place], [place], pneumonia, PE, COPD, DKA, ARF, appy, cholecystitis, CVA, Diverticulitis, Homicidal, Suicidal, threat to staff... and all critical care pts) @ -Low likelihood Disposition Clinical Impression: Dental caries Disposition: HOME SELF-CARE Condition: Stable Instructions (If sedation given, give patient instructions): Toothache (ED) Additional Instructions: [place] return to the nearest emergency department if symptoms worsen or persist Prescriptions: Clindamycin [Cleocin] 150 mg PO Q6H #40 capsule Ketorolac [Toradol] 10 mg PO Q8HR #15 tab Is patient prescribed a controlled substance at d/c from ED?: No Referrals: Robert Joya MD [Primary Care Provider] - 1-2 days Time of Disposition: 14:09
[2023-02-08 14:20] VITALS: BP 124/79; PULSE 72; RESP 16; TEMP 97.9
== END 2023-02-08 14:18 | disposition home or self-care (01) ==
LOC: EC 12:41
DX: K02.9 Dental caries, unspecified (principal); J45.909 Unspecified asthma, uncomplicated; F41.9 Anxiety disorder, unspecified; F32.A Depression, unspecified; Z79.899 Other long term (current) drug therapy; Z88.2 Allergy status to sulfonamides; Z88.8 Allergy status to other drugs, medicaments and biological substances
CPT/HCPCS: 99283; 96372; J1885

== ENCOUNTER 2024-03-31 11:03 | Emergency (ER) | payer OTHER ==
[2024-03-31 11:31] VITALS: RESP 18
[2024-03-31] MEDS: KETOROLAC 15 MG/ML 1 ML VIAL IM STA (11:45)
--- NOTE | 2024-03-31 11:45 | ED ---
Back Pain HPI - General Chief Complaint: Back Pain/Injury Stated Complaint: L sided pain Time Seen by Provider: 03/31/24 11:42 Source: patient, RN notes reviewed Mode of arrival: wheelchair Limitations: no limitations - History of Present Illness Initial Comments: 28-year-old female presenting to the ER with a chief complaint of left-sided back pain. She reports for the past 3 days she has been experiencing a gradual onset with increase of intensity of a sharp/stabbing back pain with radiation down the lateral aspect of her left leg. She denies any known injuries or traumas. She does report she has been doing physical labor out of the norm as she is moving soon. She also states she has 5 kids and he frequently picks them up. She has been using [id number] IcyHot and ibuprofen without relief. She states movement and touch makes the pain worse. She denies any saddle paresthesias, bowel or bladder incontinence, fevers or history of IV drug abuse. Denies any weakness. No history of back problems. - Related Data Home Medications Medication Instructions Recorded Confirmed Albuterol Inhaler [Ventolin Hfa 1 puff INHALATION DIRECTED PRN 02/16/20 02/18/20 Inhaler] Pnv No.95/Ferrous Fum/Folic AC 1 each PO DAILY 02/16/20 02/18/20 [ Multivitamin Tablet] Previous Rx's Medication Instructions Recorded HYDROcodone/APAP 7.5-325MG [[place] 1 each PO Q6H PRN #12 tab 02/19/20 7.5-325] Ibuprofen [Motrin] 600 mg PO Q6HR PRN #30 tab 02/19/20 Citalopram Hydrobromide [CeleXA] 20 mg PO DAILY #30 tab 02/20/20 Clindamycin [Cleocin] 150 mg PO Q6H #40 capsule 02/08/23 Ketorolac [Toradol] 10 mg PO Q8HR #15 tab 02/08/23 Cyclobenzaprine [Flexeril] 10 mg PO TID PRN #15 tab 03/31/24 Lidocaine 5% Patch [Lidoderm 5% 1 patch TOPICAL DAILY #30 patch 03/31/24 Patch] Allergies Allergy/AdvReac Type Severity Reaction Status Date / Time cephalexin monohydrate Allergy Rash/Hives Verified 03/31/24 11:32 [From Keflex] erythromycin base Allergy Rash/Hives Verified 03/31/24 11:32 [Erythromycin Base] lamotrigine [From Lamictal] Allergy Rash/Hives Verified 03/31/24 11:32 sulfamethoxazole Allergy Rash/Hives Verified 03/31/24 11:32 [From Bactrim] trimethoprim [From Bactrim] Allergy Rash/Hives Verified 03/31/24 11:32 vancomycin Allergy Rash/Hives Verified 03/31/24 11:32 Review of Systems ROS Statement: Those systems with pertinent positive or pertinent negative responses have been documented in the HPI. ROS Other: All systems not noted in ROS Statement are negative. Past Medical History Past Medical History: Asthma Additional Past Medical History / Comment(s): HTN WITH PAST WITH TWINS, -LMP 05/2019. Obstetric history: She has had 3 previous sections, last one was for twins. This is her fourth and she's had care with me since the first trimester. Blood type is O+, and because negative, rubella immune, hepatitis B-, RPR nonreactive, GBS negative. History of Any Multi-Drug Resistant Organisms: None Reported Past Surgical History: Adenoidectomy, Section, Tonsillectomy Additional Past Surgical History / Comment(s): abscess removed from neck Past Anesthesia/Blood Transfusion Reactions: No Reported Reaction, Motion Sickness Past Psychological History: Anxiety, Depression Smoking Status: Never smoker Past Alcohol Use History: None Reported Past Drug Use History: None Reported - Past Family History Mother Family Medical History: Hypertension General Exam General appearance: alert, in no apparent distress Respiratory exam: Present: normal lung sounds bilaterally. Absent: respiratory distress, wheezes, rales, rhonchi, stridor Cardiovascular Exam: Present: regular rate, normal rhythm, normal heart sounds. Absent: systolic murmur, diastolic murmur, rubs, gallop, clicks Extremities exam: Present: normal inspection, tenderness (Left lateral hip ), other (Bilateral lower extremity strength is equal. 2+ bilateral dorsalis pedis pulses. Sensation intact. Reflexes normal) Back exam: Present: normal inspection, tenderness (Lumbar spine and left pelvic girdle. No rash, wounds, erythema or bruising.) Neurological exam: Present: alert, oriented X3, CN II-XII intact Skin exam: Present: warm, dry, intact, normal color. Absent: rash Course Vital Signs 03/31/24 03/31/24 11:27 12:30 Temperature 98.2 F 97.9 F Pulse Rate 93 86 Respiratory 18 18 Rate Blood Pressure 127/88 136/78 O2 Sat by Pulse 99 99 Oximetry Medical Decision Making - Medical Decision Making Was pt. sent in by a medical professional or institution (, JOSE MANUEL, PROTEOMICS SCIENTIST, urgent care, hospital, or long term...) When possible be specific @ -No Did you speak to anyone other than the patient for history (EMS, parent, family, police, friend...)? What history was obtained from this source @ -No Did you review nursing and triage notes (agree or disagree)? Why? @ -I reviewed and agree with nursing and triage notes Were old charts reviewed (outside hosp., previous admission, EMS record, old EKG, old radiological studies, urgent care reports/EKG's, long term records)? Report findings @ -No old charts were reviewed Differential Diagnosis (chest pain, altered mental status, abdominal pain women, abdominal pain men, vaginal bleeding, weakness, fever, dyspnea, syncope, headache, dizziness, GI bleed, back pain, seizure, CVA, palpatations, mental health, musculoskeletal)? @ -Differential Back Pain:Strain, zoster, cauda equina syndrome, epidural abscess, vertebral osteomyelitis, discitis, fracture, subluxation, disc herniation, DJD, spinal stenosis, dissection, AAA, pancreatitis, peptic ulcer disease, pyelonephritis, kidney stone, this is not meant to be an all-inclusive list. EKG interpreted by me (3pts min.). @ -None X-rays interpreted by me (1pt min.). @ -Lumbar spin xrays interpreted by me negative for acute process. CT interpreted by me (1pt min.). @ -None done U/S interpreted by me (1pt. min.). @ -None done What testing was considered but not performed or refused? (CT, X-rays, U/S, labs)? Why? @ -None What meds were considered but not given or refused? Why? @ -None Did you discuss the management of the patient with other professionals (professionals i.e. JOSE MANUEL Faustin, PROTEOMICS SCIENTIST, lab, RT, psych nurse, manager social, capacity planning manager, teacher, workplace rehabilitation officer, rehabilitation case coordinator)? Give summary @ -No Was smoking cessation discussed for >3mins.? @ -No Was critical care preformed (if so, how long)? @ -No Were there social determinants of health that impacted care today? How? (Homelessness, low income, unemployed, alcoholism, drug addiction, transportation, low edu. Level, literacy, decrease access to med. care, senior living, rehab)? @ -No Was there de-escalation of care discussed even if they declined (Discuss DNR or withdrawal of care, Hospice)? DNR status @ -No What co-morbidities impacted this encounter? (DM, HTN, Smoking, COPD, CAD, Cancer, CVA, ARF, Chemo, Hep., AIDS, mental health diagnosis, sleep apnea, morbid obesity)? @ -None Was patient admitted / discharged? Hospital course, mention meds given and route, prescriptions, significant lab abnormalities, going to OR and other pertinent info. @ -28-year-old female presented to the ER with a chief plaint of back pain. History and physical exam completed. Vitals stable. Patient in no signs of acute distress and nontoxic-appearing. No acute neurological findings on exam. No red flag back pain symptoms active cauda equina syndrome. Bilateral upper and lower extremities neurovascular intact. There is no erythema, bruising, rashes or wounds noted on exam. Reflexes normal. Strength is equal bilaterally. Patient denies any urinary complaints. X-rays obtained negative for acute process. Pain believed to be musculoskeletal in nature.Patient received IM Toradol and lidocaine patch in the ER for symptom control. Upon reevaluation, patient resting comfortably in exam room in no signs of acute distress. Patient reported mild improvement of pain. Results discussed with patient, all questions answered. Patient stable for discharge at this time. Flexeril and lidocaine patches prescribed. Advised close follow-up with PCP. Return parameters discussed. Patient discharged in stable condition. Patient verbally expressed understanding and agreed with care plan. Case discussed with ED attending, Dr. Seo. Undiagnosed new problem with uncertain prognosis? @ -No Drug Therapy requiring intensive monitoring for toxicity (Heparin, Nitro, Insulin, Cardizem)? @ -No Were any procedures done? @ -No Diagnosis/symptom? @ -Back strain Acute, or Chronic, or Acute on Chronic? @ -Acute Uncomplicated (without systemic symptoms) or Complicated (systemic symptoms)? @ -Uncomplicated Side effects of treatment? @ -No Exacerbation, Progression, or Severe Exacerbation? @ -No Poses a threat to life or bodily function? How? (Chest pain, [place], [place], pneumonia, PE, COPD, DKA, ARF, appy, cholecystitis, CVA, Diverticulitis, Homicidal, Suicidal, threat to staff... and all critical care pts) @ -No - Radiology Data Radiology results: report reviewed, image reviewed Disposition Clinical Impression: Back strain Disposition: HOME SELF-CARE Condition: Stable Instructions (If sedation given, give patient instructions): Acute Low Back Pain (ED) Additional Instructions: Continue with OTC tylenol and motrin for pain control. Follow-up with PCP. Return to the ER for any new or worsening symptoms. Prescriptions: Cyclobenzaprine [Flexeril] 10 mg PO TID PRN #15 tab PRN Reason: Muscle Spasm Lidocaine 5% Patch [Lidoderm 5% Patch] 1 patch TOPICAL DAILY #30 patch Is patient prescribed a controlled substance at d/c from ED?: No Referrals: None,Stated [Primary Care Provider] - 1-2 days Forms: Area PCPs Time of Disposition: 12:23
[2024-03-31] MEDS: LIDOCAINE 4% PATCH TOPICAL ONE (11:47)
--- NOTE | 2024-03-31 11:57 | XR ---
EXAMINATION TYPE: XR lumbar spine 2 or 3V DATE OF EXAM: 03/31/2024 CLINICAL HISTORY: pain TECHNIQUE: Three views of the lumbar spine are submitted. COMPARISON: None. FINDINGS: There are 5 lumbar type vertebral bodies identified. The lumbar spine shows satisfactory alignment w ithout evidence of acute fracture or dislocation. Vertebral body heights are within normal limits. Disc spaces are within normal limits. The overlying soft tissue appears unremarkable. IMPRESSION: No acute fracture or dislocation is seen in the lumbar spine. ICD 10 NO FRACTURE, INITIAL EVALUATION
[2024-03-31 12:31] VITALS: BP 136/78; PULSE 86; TEMP 97.9
== END 2024-03-31 12:31 | disposition home or self-care (01) ==
LOC: EC 11:03
DX: S39.012A Strain of muscle, fascia and tendon of lower back, initial encounter (principal); Z88.2 Allergy status to sulfonamides; Z88.8 Allergy status to other drugs, medicaments and biological substances; X58.XXXA Exposure to other specified factors, initial encounter
CPT/HCPCS: 72100; 99283; 96372; J1885

== ENCOUNTER 2024-06-14 10:23 | Emergency (ER) | payer OTHER ==
[2024-06-14 10:28] VITALS: RESP 18; TEMP 99.2
--- NOTE | 2024-06-14 10:51 | ED ---
General Adult HPI - General Chief complaint: Headache Stated complaint: headache Time Seen by Provider: 06/14/24 10:36 Source: patient, RN notes reviewed Mode of arrival: ambulatory Limitations: no limitations - History of Present Illness Initial comments: 28 year old female presents to the emergency department with chief complaint of headache. She states that about a week ago she developed a constant migraine headache about entire head associated with nausea and vomiting. She has tried to take OTC acetaminophen and ibuprofen with no relief. She states though, that she also has a nonproductive cough but denies sick contact. She has relevant personal history of headaches in which she states that she has had prior CTs and imaging. Patient dates she has had a headaches like this in the past this is not the worst headache of her life. She reports a family history of migraines including her sister and mother. Light, sound, and movement aggravate headache, and resting is the only relief. - Related Data Home Medications Medication Instructions Recorded Confirmed Albuterol Inhaler [Ventolin Hfa 1 puff INHALATION DIRECTED PRN 02/16/20 02/18/20 Inhaler] Pnv No.95/Ferrous Fum/Folic AC 1 each PO DAILY 02/16/20 02/18/20 [ Multivitamin Tablet] Previous Rx's Medication Instructions Recorded HYDROcodone/APAP 7.5-325MG [[place] 1 each PO Q6H PRN #12 tab 02/19/20 7.5-325] Ibuprofen [Motrin] 600 mg PO Q6HR PRN #30 tab 02/19/20 Citalopram Hydrobromide [CeleXA] 20 mg PO DAILY #30 tab 02/20/20 Clindamycin [Cleocin] 150 mg PO Q6H #40 capsule 02/08/23 Ketorolac [Toradol] 10 mg PO Q8HR #15 tab 02/08/23 Cyclobenzaprine [Flexeril] 10 mg PO TID PRN #15 tab 03/31/24 Lidocaine 5% Patch [Lidoderm 5% 1 patch TOPICAL DAILY #30 patch 03/31/24 Patch] Allergies Allergy/AdvReac Type Severity Reaction Status Date / Time cephalexin monohydrate Allergy Rash/Hives Verified 06/14/24 10:28 [From Keflex] erythromycin base Allergy Rash/Hives Verified 06/14/24 10:28 [Erythromycin Base] lamotrigine [From Lamictal] Allergy Rash/Hives Verified 06/14/24 10:28 sulfamethoxazole Allergy Rash/Hives Verified 06/14/24 10:28 [From Bactrim] trimethoprim [From Bactrim] Allergy Rash/Hives Verified 06/14/24 10:28 vancomycin Allergy Rash/Hives Verified 06/14/24 10:28 Review of Systems ROS Statement: Those systems with pertinent positive or pertinent negative responses have been documented in the HPI. ROS Other: All systems not noted in ROS Statement are negative. Past Medical History Past Medical History: Asthma Additional Past Medical History / Comment(s): HTN WITH PAST WITH TWINS, -LMP 05/2019. Obstetric history: She has had 3 previous sections, last one was for twins. This is her fourth and she's had care with me since the first trimester. Blood type is O+, and because negative, rubella immune, hepatitis B-, RPR nonreactive, GBS negative. History of Any Multi-Drug Resistant Organisms: None Reported Past Surgical History: Adenoidectomy, Section, Tonsillectomy Additional Past Surgical History / Comment(s): abscess removed from neck Past Anesthesia/Blood Transfusion Reactions: No Reported Reaction, Motion Sickness Past Psychological History: Anxiety, Depression Smoking Status: Never smoker Past Alcohol Use History: None Reported Past Drug Use History: None Reported - Past Family History Mother Family Medical History: Hypertension General Exam Limitations: no limitations General appearance: alert, in no apparent distress Head exam: Present: atraumatic, normocephalic, normal inspection Eye exam: Present: normal appearance, PERRL, EOMI. Absent: scleral icterus, conjunctival injection, periorbital swelling ENT exam: Present: normal exam, normal oropharynx, mucous membranes moist Neck exam: Present: normal inspection. Absent: tenderness, meningismus, lympha denopathy Respiratory exam: Present: normal lung sounds bilaterally. Absent: respiratory distress, wheezes, rales, rhonchi, stridor Cardiovascular Exam: Present: regular rate, normal rhythm, normal heart sounds. Absent: systolic murmur, diastolic murmur, rubs, gallop, clicks GI/Abdominal exam: Present: soft, normal bowel sounds. Absent: distended, tenderness, guarding, rebound, rigid Extremities exam: Present: normal inspection, full ROM, normal capillary refill. Absent: tenderness, pedal edema, joint swelling, calf tenderness Back exam: Present: normal inspection Neurological exam: Present: alert, oriented X3, CN II-XII intact Psychiatric exam: Present: normal affect, normal mood Skin exam: Present: warm, dry, intact, normal color. Absent: rash Course Vital Signs 06/14/24 10:24 Temperature 99.2 F Pulse Rate 102 H Respiratory 18 Rate Blood Pressure 125/82 O2 Sat by Pulse 95 Oximetry Medical Decision Making - Medical Decision Making Was pt. sent in by a medical professional or institution (, JOSE MANUEL, SERVICE CENTER TECHNICIAN, urgent care, hospital, or [facility]...) When possible be specific @ -No Did you speak to anyone other than the patient for history (EMS, parent, family, police, friend...)? What history was obtained from this source @ -No Did you review nursing and triage notes (agree or disagree)? Why? @ -I reviewed and agree with nursing and triage notes Were old charts reviewed (outside hosp., previous admission, EMS record, old EKG, old radiological studies, urgent care reports/EKG's, [facility] records)? Report findings @ -No old charts were reviewed Differential Diagnosis (chest pain, altered mental status, abdominal pain women, abdominal pain men, vaginal bleeding, weakness, fever, dyspnea, syncope, headache, dizziness, GI bleed, back pain, seizure, CVA, palpatations, mental health, musculoskeletal)? @ -Differential Headache: Migraine, tension, cluster, carbon monoxide, central venous thrombosis, pension karma temporal arteritis, acute closure glaucoma, intercranial hemorrhage, mastoiditis, sinusitis, head injury, this is not meant to be an all-inclusive list. EKG interpreted by me (3pts min.). @ -None X-rays interpreted by me (1pt min.). @ -None done CT interpreted by me (1pt min.). @ -None done U/S interpreted by me (1pt. min.). @ -None done What testing was considered but not performed or refused? (CT, X-rays, U/S, labs)? Why? @ -None What meds were considered but not given or refused? Why? @ -None Did you discuss the management of the patient with other professionals (professionals i.e. , JOSE MANUEL, SERVICE CENTER TECHNICIAN, lab, RT, psych nurse, social media community manager, recreation programmer, teacher, fire officer, supervisor case loading)? Give summary @ -No Was smoking cessation discussed for >3mins.? @ -No Was critical care preformed (if so, how long)? @ -No Were there social determinants of health that impacted care today? How? (Homelessness, low income, unemployed, alcoholism, drug addiction, transportation, low edu. Level, literacy, decrease access to med. care, [place] [facility], rehab)? @ -No Was there de-escalation of care discussed even if they declined (Discuss DNR or withdrawal of care, Hospice)? DNR status @ -No What co-morbidities impacted this encounter? (DM, HTN, Smoking, COPD, CAD, Cancer, CVA, ARF, Chemo, Hep., AIDS, mental health diagnosis, sleep apnea, morbid obesity)? @ -None Was patient admitted / discharged? Hospital course, mention meds given and route, prescriptions, significant lab abnormalities, going to OR and other pertinent info. @ -Discharge patient's headache has improved. Patient is neurologically intact patient did have negative Cepheid swab. Patient is comfortable discharge and close follow-up. Undiagnosed new problem with uncertain prognosis? @ -No Drug Therapy requiring intensive monitoring for toxicity (Heparin, Nitro, Insulin, Cardizem)? @ -No Were any procedures done? @ -No Diagnosis/symptom? @ -Migraine Acute, or Chronic, or Acute on Chronic? @ -Acute Uncomplicated (without systemic symptoms) or Complicated (systemic symptoms)? @ -Uncomplicated Side effects of treatment? @ -No Exacerbation, Progression, or Severe Exacerbation? @ -No Poses a threat to life or bodily function? How? (Chest pain, [place], [place], pneumonia, PE, COPD, DKA, ARF, appy, cholecystitis, CVA, Diverticulitis, Homicidal, Suicidal, threat to staff... and all critical care pts) @ -No - Lab Data Lab Results 06/14/24 Range/Units 10:59 Influenza Type A (PCR) Not Detected (Not Detectd) Influenza Type B (PCR) Not Detected (Not Detectd) RSV (PCR) Not Detected (Not Detectd) SARS-CoV-2 (PCR) Not Detected (Not Detectd) Disposition Clinical Impression: Migraine headache Disposition: HOME SELF-CARE Condition: Stable Instructions (If sedation given, give patient instructions): Acute Headache (ED) Additional Instructions: Please return to the Emergency Department if symptoms worsen or any other concerns. Is patient prescribed a controlled substance at d/c from ED?: No Referrals: None,Stated [Primary Care Provider] - 1-2 days Time of Disposition: 12:13
[2024-06-14] MEDS: KETOROLAC 15 MG/ML 1 ML VIAL IVP STA ×2 (11:09→12:08)
[2024-06-14] MEDS: diphenhydrAMINE 50 MG/ML 1 ML VIAL IVP STA (11:10)
[2024-06-14] MEDS: METOCLOPRAMIDE 5 MG/ML 2 ML VIAL IVP STA (11:10)
[2024-06-14] MEDS: ONDANSETRON 4 MG/2 ML VIAL IVP STA (11:10)
[2024-06-14] MEDS: SODIUM CHLORIDE 0.9% 500 ML 500 ML IV STA (11:11)
[2024-06-14] MEDS: ONDANSETRON 4 MG/2 ML VIAL IM STA (11:13)
[2024-06-14] MEDS: ORPHENADRINE 30 MG/ML 2 ML VIAL IVP STA (12:09)
[2024-06-14 12:28] VITALS: BP 122/79; PULSE 77
== END 2024-06-14 12:29 | disposition home or self-care (01) ==
LOC: EC 10:23
CPT/HCPCS: 87636; 96374; 96375; 96376; 99284

== ENCOUNTER 2024-07-21 19:04 | Emergency (ER) | payer OTHER ==
[2024-07-21 19:20] VITALS: RESP 18; TEMP 99.2
--- NOTE | 2024-07-21 19:24 | ED ---
Abdominal Pain HPI - General Chief Complaint: Abdominal Pain Stated Complaint: Abd pain Time Seen by Provider: 07/21/24 19:15 Source: patient, RN notes reviewed Mode of arrival: ambulatory Limitations: no limitations - History of Present Illness Initial Comments: 28-year-old female presents emergency department with chief complaint of abdominal pain. Patient states there was a sudden onset of right-sided abdominal pain. Patient states that pain is persistent nothing makes it feel better or worse. She does have slight nausea she has had 2 prior sections no other abdominal surgeries. Patient offers no other complaints. - Related Data Home Medications Medication Instructions Recorded Confirmed Albuterol Inhaler [Ventolin Hfa 1 puff INHALATION DIRECTED PRN 02/16/20 02/18/20 Inhaler] Pnv No.95/Ferrous Fum/Folic AC 1 each PO DAILY 02/16/20 02/18/20 [ Multivitamin Tablet] Previous Rx's Medication Instructions Recorded HYDROcodone/APAP 7.5-325MG [[place] 1 each PO Q6H PRN #12 tab 02/19/20 7.5-325] Ibuprofen [Motrin] 600 mg PO Q6HR PRN #30 tab 02/19/20 Citalopram Hydrobromide [CeleXA] 20 mg PO DAILY #30 tab 02/20/20 Clindamycin [Cleocin] 150 mg PO Q6H #40 capsule 02/08/23 Ketorolac [Toradol] 10 mg PO Q8HR #15 tab 02/08/23 Cyclobenzaprine [Flexeril] 10 mg PO TID PRN #15 tab 03/31/24 Lidocaine 5% Patch [Lidoderm 5% 1 patch TOPICAL DAILY #30 patch 03/31/24 Patch] Nitrofurantoin Monohyd/M-Cryst 100 mg PO Q12HR #14 cap 07/21/24 [Macrobid] Ondansetron Odt [Zofran Odt] 4 mg PO Q8HR PRN #10 tab 07/21/24 Allergies Allergy/AdvReac Type Severity Reaction Status Date / Time cephalexin monohydrate Allergy Rash/Hives Verified 07/21/24 19:20 [From Keflex] erythromycin base Allergy Rash/Hives Verified 07/21/24 19:20 [Erythromycin Base] lamotrigine [From Lamictal] Allergy Rash/Hives Verified 07/21/24 19:20 sulfamethoxazole Allergy Rash/Hives Verified 07/21/24 19:20 [From Bactrim] trimethoprim [From Bactrim] Allergy Rash/Hives Verified 07/21/24 19:20 vancomycin Allergy Rash/Hives Verified 07/21/24 19:20 Review of Systems ROS Statement: Those systems with pertinent positive or pertinent negative responses have been documented in the HPI. ROS Other: All systems not noted in ROS Statement are negative. Past Medical History Past Medical History: Asthma Additional Past Medical History / Comment(s): HTN WITH PAST WITH TWINS, -LMP 05/2019. Obstetric history: She has had 3 previous sections, last one was for twins. This is her fourth and she's had care with me since the first trimester. Blood type is O+, and because negative, rubella immune, hepatitis B-, RPR nonreactive, GBS negative. History of Any Multi-Drug Resistant Organisms: None Reported Past Surgical History: Adenoidectomy, Section, Tonsillectomy Additional Past Surgical History / Comment(s): abscess removed from neck Past Anesthesia/Blood Transfusion Reactions: No Reported Reaction, Motion Sickness Past Psychological History: Anxiety, Depression Smoking Status: Never smoker Past Alcohol Use History: None Reported Past Drug Use History: None Reported - Past Family History Mother Family Medical History: Hypertension General Exam Limitations: no limitations General appearance: alert, in no apparent distress Head exam: Present: atraumatic, normocephalic, normal inspection Eye exam: Present: normal appearance, PERRL, EOMI. Absent: scleral icterus, conjunctival injection, periorbital swelling ENT exam: Present: normal exam, mucous membranes moist Neck exam: Present: normal inspection, full ROM. Absent: tenderness, meningismus, lymphadenopathy Cardiovascular Exam: Present: regular rate, normal rhythm, normal heart sounds. Absent: systolic murmur, diastolic murmur, rubs, gallop, clicks GI/Abdominal exam: Present: soft, tenderness, normal bowel sounds. Absent: distended, guarding, rebound, rigid Course Vital Signs 07/21/24 07/21/24 19:16 22:10 Temperature 99.2 F 99.2 F Pulse Rate 127 H 98 Respiratory 18 18 Rate Blood Pressure 130/96 124/88 O2 Sat by Pulse 99 99 Oximetry Medical Decision Making - Medical Decision Making Was pt. sent in by a medical professional or institution (JOSE MANUEL Faustin, HEALTHCARE SALES REPRESENTATIVE, urgent care, hospital, or usp...) When possible be specific @ -No Did you speak to anyone other than the patient for history (EMS, parent, family, police, friend...)? What history was obtained from this source @ -No Did you review nursing and triage notes (agree or disagree)? Why? @ -I reviewed and agree with nursing and triage notes Were old charts reviewed (outside hosp., previous admission, EMS record, old EKG, old radiological studies, urgent care reports/EKG's, usp records)? Report findings @ -No old charts were reviewed Differential Diagnosis (chest pain, altered mental status, abdominal pain women, abdominal pain men, vaginal bleeding, weakness, fever, dyspnea, syncope, headache, dizziness, GI bleed, back pain, seizure, CVA, palpatations, mental health, musculoskeletal)? @ -Differential Abdominal Pain Women: Appendicitis, Cholecystitis, diverticulosis, ischemic bowel, pancreatitis, hepatitis, UTI, gastroenteritis, AAA, incarcerated hernia, bowel obstruction, constipation, inflammatory bowel, hepatitis, peptic ulcer disease, splenic infarction, perforated viscus, vulvitis, ovarian torsion, PID, kidney stone, placenta abruption, this is not meant to be an all-inclusive list EKG interpreted by me (3pts min.). @ -None X-rays interpreted by me (1pt min.). @ -None done CT interpreted by me (1pt min.). @ -CT abdomen pelvis showing cholelithiasis, mesenteric adenitis U/S interpreted by me (1pt. min.). @ -None done What testing was considered but not performed or refused? (CT, X-rays, U/S, labs)? Why? @ -None What meds were considered but not given or refused? Why? @ -None Did you discuss the management of the patient with other professionals (professionals i.e. JOSE MANUEL Faustin, HEALTHCARE SALES REPRESENTATIVE, lab, RT, psych nurse, social economist, railroad maintenance clerk, teacher, retirement officer, rifle case repairer)? Give summary @ -No Was smoking cessation discussed for >3mins.? @ -No Was critical care preformed (if so, how long)? @ -No Were there social determinants of health that impacted care today? How? (Homelessness, low income, unemployed, alcoholism, drug addiction, transportation, low edu. Level, literacy, decrease access to med. care, usp, rehab)? @ -No Was there de-escalation of care discussed even if they declined (Discuss DNR or withdrawal of care, Hospice)? DNR status @ -No What co-morbidities impacted this encounter? (DM, HTN, Smoking, COPD, CAD, Cancer, CVA, ARF, Chemo, Hep., AIDS, mental health diagnosis, sleep apnea, morbid obesity)? @ -None Was patient admitted / discharged? Hospital course, mention meds given and route, prescriptions, significant lab abnormalities, going to OR and other pertinent info. @ -Discharge patient feels improved this time she does not have any right upper quadrant tenderness consistent with acute [place] cystitis with cholelithiasis. Patient has mesenteric adenitis, UTI patient discharged in stable condition return for as discussed. Undiagnosed new problem with uncertain prognosis? @ -No Drug Therapy requiring intensive monitoring for toxicity (Heparin, Nitro, Insulin, Cardizem)? @ -No Were any procedures done? @ -No Diagnosis/symptom? @ -[Mesenteric adenitis, UTI, abdominal pain Acute, or Chronic, or Acute on Chronic? @ -Acute Uncomplicated (without systemic symptoms) or Complicated (systemic symptoms)? @ -Uncomplicated Side effects of treatment? @ -No Exacerbation, Progression, or Severe Exacerbation? @ -No Poses a threat to life or bodily function? How? (Chest pain, [place], [place], pneumonia, PE, COPD, DKA, ARF, appy, cholecystitis, CVA, Diverticulitis, Homicidal, Suicidal, threat to staff... and all critical care pts) @ -No - Lab Data Result diagrams: 07/21/24 19:59 07/21/24 19:59 Lab Results 07/21/24 07/21/24 07/21/24 Range/Units 19:59 19:59 19:59 WBC 6.7 (3.8-10.6) k/uL RBC 4.54 (3.80-5.40) m/uL Hgb 13.1 (11.4-16.0) gm/dL Hct 39.6 (34.0-46.0) % MCV 87.2 (80.0-100.0) fL MCH 28.7 (25.0-35.0) pg MCHC 33.0 (31.0-37.0) g/dL RDW 13.6 (11.5-15.5) % Plt Count 346 (150-450) k/uL MPV 7.4 Neutrophils % 58 % Lymphocytes % 29 % Monocytes % 8 % Eosinophils % 1 % Basophils % 1 % Neutrophils # 3.9 (1.3-7.7) k/uL Lymphocytes # 1.9 (1.0-4.8) k/uL Monocytes # 0.5 (0-1.0) k/uL Eosinophils # 0.1 (0-0.7) k/uL Basophils # 0.0 (0-0.2) k/uL Sodium 140 (137-145) mmol/L Potassium 3.7 (3.5-5.1) mmol/L Chloride 104 (98-107) mmol/L Carbon Dioxide 24 (22-30) mmol/L Anion Gap 12 mmol/L BUN 7 (7-17) mg/dL Creatinine 0.69 (0.52-1.04) mg/dL Est GFR (CKD-EPI)AfAm >90 (>60 ml/min/1.73 sqM) Est GFR (CKD-EPI)NonAf >90 (>60 ml/min/1.73 sqM) Glucose 95 (74-99) mg/dL Plasma Lactic Acid Gomez (0.7-2.0) mmol/L Calcium 9.3 (8.4-10.2) mg/dL Total Bilirubin 0.4 (0.2-1.3) mg/dL AST 35 (14-36) U/L ALT 25 (4-34) U/L Alkaline Phosphatase 67 (38-126) U/L Total Protein 7.7 (6.3-8.2) g/dL Albumin 4.8 (3.5-5.0) g/dL Lipase 43 (23-300) U/L Urine Color Yellow Urine Appearance Cloudy H (Clear) Urine pH 5.5 (5.0-8.0) Ur Specific [place] 1.030 (1.001-1.035) Urine Protein Trace H (Negative) Urine Glucose (UA) Negative (Negative) Urine Ketones Negative (Negative) Urine Blood Negative (Negative) Urine Nitrite Negative (Negative) Urine Bilirubin Negative (Negative) Urine Urobilinogen 6.0 (<2.0) mg/dL Ur Leukocyte Esterase Small H (Negative) Urine RBC 4 (0-5) /hpf Urine WBC 10 H (0-5) /hpf Ur Squamous Epith Cells 3 (0-4) /hpf Urine Mucus Many H (None) /hpf Urine HCG, Qual (Not Detectd) 07/21/24 07/21/24 Range/Units 19:59 19:59 WBC (3.8-10.6) k/uL RBC (3.80-5.40) m/uL Hgb (11.4-16.0) gm/dL Hct (34.0-46.0) % MCV (80.0-100.0) fL MCH (25.0-35.0) pg MCHC (31.0-37.0) g/dL RDW (11.5-15.5) % Plt Count (150-450) k/uL MPV Neutrophils % % Lymphocytes % % Monocytes % % Eosinophils % % Basophils % % Neutrophils # (1.3-7.7) k/uL Lymphocytes # (1.0-4.8) k/uL Monocytes # (0-1.0) k/uL Eosinophils # (0-0.7) k/uL Basophils # (0-0.2) k/uL Sodium (137-145) mmol/L Potassium (3.5-5.1) mmol/L Chloride (98-107) mmol/L Carbon Dioxide (22-30) mmol/L Anion Gap mmol/L BUN (7-17) mg/dL Creatinine (0.52-1.04) mg/dL Est GFR (CKD-EPI)AfAm (>60 ml/min/1.73 sqM) Est GFR (CKD-EPI)NonAf (>60 ml/min/1.73 sqM) Glucose (74-99) mg/dL Plasma Lactic Acid Gomez 1.0 (0.7-2.0) mmol/L Calcium (8.4-10.2) mg/dL Total Bilirubin (0.2-1.3) mg/dL AST (14-36) U/L ALT (4-34) U/L Alkaline Phosphatase (38-126) U/L Total Protein (6.3-8.2) g/dL Albumin (3.5-5.0) g/dL Lipase (23-300) U/L Urine Color Urine Appearance (Clear) Urine pH (5.0-8.0) Ur Specific [place] (1.001-1.035) Urine Protein (Negative) Urine Glucose (UA) (Negative) Urine Ketones (Negative) Urine Blood (Negative) Urine Nitrite (Negative) Urine Bilirubin (Negative) Urine Urobilinogen (<2.0) mg/dL Ur Leukocyte Esterase (Negative) Urine RBC (0-5) /hpf Urine WBC (0-5) /hpf Ur Squamous Epith Cells (0-4) /hpf Urine Mucus (None) /hpf Urine HCG, Qual Not Detected (Not Detectd) Disposition Clinical Impression: UTI (urinary tract infection), Mesenteric adenitis Disposition: HOME SELF-CARE Condition: Stable Instructions (If sedation given, give patient instructions): Mesenteric Adenitis (ED) Additional Instructions: Please return to the Emergency Department if symptoms worsen or any other concerns. Prescriptions: Nitrofurantoin Monohyd/M-Cryst [Macrobid] 100 mg PO Q12HR #14 cap Ondansetron Odt [Zofran Odt] 4 mg PO Q8HR PRN #10 tab PRN Reason: Nausea Is patient prescribed a controlled substance at d/c from ED?: No Referrals: None,Stated [Primary Care Provider] - 1-2 days Time of Disposition: 22:05
[2024-07-21 20:22] LABS: Appearance,Urine Cloudy (Clear); Bilirubin,Urine Negative (Negative); Blood,Urine Negative (Negative); Color,Urine Yellow; Glucose,Urine (UA) Negative (Negative); Ketones,Urine Negative (Negative); Leukocyte Esterase,Urine Small (Negative); Mucus,Urine Many /hpf; Nitrite,Urine Negative (Negative); PH, Urine 5.5 (5.0-8.0); Protein,Urine Trace (Negative); RBC,Urine 4 /hpf (0-5); Squamous Epithelial Cell,Urine 3 /hpf (0-4); WBC,Urine 10 /hpf (0-5)
[2024-07-21] MEDS: ONDANSETRON 4 MG/2 ML VIAL IVP STA (20:26)
[2024-07-21] MEDS: SODIUM CHLORIDE 0.9% 1,000 ML IV STA (20:26)
[2024-07-21] MEDS: KETOROLAC 15 MG/ML 1 ML VIAL IVP STA (20:27)
[2024-07-21 20:32] LABS: Basophils % (A) 1 %; Eosinophils # (A) 0.1 k/uL (0-0.7); Eosinophils % (A) 1 %; HCT 39.6 % (34.0-46.0); HGB 13.1 gm/dL (11.4-16.0); Lymphocytes # (A) 1.9 k/uL (1.0-4.8); Lymphocytes % (A) 29 %; MCH 28.7 pg (25.0-35.0); MCV 87.2 fL (80.0-100.0); Mean Platelet Volume 7.4; Monocytes # (A) 0.5 k/uL (0-1.0); Monocytes % (A) 8 %; Neutrophils # (A) 3.9 k/uL (1.3-7.7); Neutrophils % (A) 58 %; Platelet Count 346 k/uL (150-450); RBC 4.54 m/uL (3.80-5.40); RDW 13.6 % (11.5-15.5); WBC 6.7 k/uL (3.8-10.6)
[2024-07-21 20:42] LABS: ALT 25 U/L (4-34); AST 35 U/L (14-36); African American GFR (CKD) >90 (>60 ml/min/1.73 sqM); Albumin 4.8 g/dL (3.5-5.0); Alkaline Phosphatase 67 U/L (38-126); Anion Gap 12 mmol/L; Blood Urea Nitrogen 7 mg/dL (7-17); Calcium 9.3 mg/dL (8.4-10.2); Carbon Dioxide 24 mmol/L (22-30); Chloride 104 mmol/L (98-107); Glucose 95 mg/dL (74-99); Lipase 43 U/L (23-300); Non-African American GFR(CKD) >90 (>60 ml/min/1.73 sqM); Potassium 3.7 mmol/L (3.5-5.1); Sodium 140 mmol/L (137-145); Total Bilirubin 0.4 mg/dL (0.2-1.3); Total Protein 7.7 g/dL (6.3-8.2)
[2024-07-21] MEDS: HYDROmorphone 0.5 MG/0.5 ML SYRINGE IVP STA (21:28)
--- NOTE | 2024-07-21 21:53 | CT ---
EXAMINATION TYPE: CT abdomen pelvis wo con DATE OF EXAM: 07/21/2024 8:55 PM COMPARISON: None. CLINICAL INDICATION: Female, 28 years old with history of abdominal pain, Severe Rt side abdominal pa in. TECHNIQUE: Axial images were obtained from above the diaphragm to the pubic rami in the axial plane a t 5 mm thick sections. Reconstructed images are reviewed on the computer in the coronal plane. CONTRAST: mL of . Study performed without Oral Contrast DLP: 789.6 mGycm, Automated exposure control for dose reduction was used. FINDINGS: Limited CT sections are obtained the lung bases. Minimal pericardial effusion is present. The lung b ases appear clear. CT ABDOMEN: Liver: Normal Spleen: Normal Pancreas: Normal Adrenal glands: The adrenal glands are normal. Gallbladder: Gallstone is present Kidneys: No masses are evident. No hydronephrosis is present. No cysts are present. No renal stone s are evident. Aorta: Normal Inferior vena cava: Normal. CT PELVIS: Small posterior small periumbilical fat-containing hernia Loops of bowel within the abdomen and pelvis are normal. This study is lateral contrast limiting bowel evaluation. Appendix: Normal as visualized. Are scattered lymph nodes within the mesentery. Consider mesenteric a denitis Urinary bladder: Normal. Genitourinary structures: Uterus is normal. Small follicle may be on the left ovary. Adnexa appear un remarkable Osseous structures: No suspicious lytic or sclerotic lesions. IMPRESSION: 1. Cholelithiasis. 2. Minimal pericardial effusion. 3. Normal appendix. Consider mesenteric adenitis. [facility], , 07/21/2024 9:51 PM
[2024-07-21] MEDS ORDERED: ONDANSETRON 4 MG ODT STARTER PACK 2 TAB BTL PO STA (22:04)
[2024-07-21] MEDS ORDERED: NITROFURANTOIN MONOHYD/M-CRYST 100 MG CAP PO STA (22:04)
[2024-07-21] MEDS ORDERED: ACET/COD 300 MG/30 MG STARTER PACK 6 TAB BTL PO STA (22:04)
[2024-07-21 22:28] VITALS: BP 124/88; PULSE 98
== END 2024-07-21 22:15 | disposition home or self-care (01) ==
LOC: EC 19:04
DX: N39.0 Urinary tract infection, site not specified (principal); I88.0 Nonspecific mesenteric lymphadenitis; K80.20 Calculus of gallbladder without cholecystitis without obstruction; Z88.1 Allergy status to other antibiotic agents; Z88.2 Allergy status to sulfonamides; Z88.8 Allergy status to other drugs, medicaments and biological substances
CPT/HCPCS: 36415; 80053; 83605; 83690; 85025; 81001; 81025; 74176; 99284; 96374; 96375 ×2; 96361; J2405; J1885; J1171

== ENCOUNTER 2024-11-04 13:18 | Emergency (ER) | payer OTHER ==
--- NOTE | 2024-11-04 14:07 | ED ---
General Adult HPI - General Chief complaint: Back Pain/Injury Stated complaint: low back pain, stiffness Time Seen by Provider: 11/04/24 13:23 Source: patient, RN notes reviewed Mode of arrival: ambulatory Limitations: no limitations - History of Present Illness Initial comments: 29-year-old female presents to the emergency department for evaluation of left hip and low back pain. Patient states that this been ongoing issue for 2 years following a fall. She denies any recent trauma. She states that is progressively gotten worse. She states that the pain is in her left buttock and her low back. She states that she has been taking ibuprofen for this without relief. She denies any recent fever, chills, loss of bowel or bladder function, saddle anesthesia. - Related Data Home Medications Medication Instructions Recorded Confirmed Albuterol Inhaler [Ventolin Hfa 1 puff INHALATION DIRECTED PRN 02/16/20 0 02/18/20 Inhaler] Pnv No.95/Ferrous Fum/Folic AC 1 each PO DAILY 02/16/20 02/18/20 [ Multivitamin Tablet] Previous Rx's Medication Instructions Recorded HYDROcodone/APAP 7.5-325MG [[place] 1 each PO Q6H PRN #12 tab 02/19/20 7.5-325] Ibuprofen [Motrin] 600 mg PO Q6HR PRN #30 tab 02/19/20 Citalopram Hydrobromide [CeleXA] 20 mg PO DAILY #30 tab 02/20/20 Clindamycin [Cleocin] 150 mg PO Q6H #40 capsule 02/08/23 Ketorolac [Toradol] 10 mg PO Q8HR #15 tab 02/08/23 Cyclobenzaprine [Flexeril] 10 mg PO TID PRN #15 tab 03/31/24 Lidocaine 5% Patch [Lidoderm 5% 1 patch TOPICAL DAILY #30 patch 03/31/24 Patch] Nitrofurantoin Monohyd/M-Cryst 100 mg PO Q12HR #14 cap 07/21/24 [Macrobid] Ondansetron Odt [Zofran Odt] 4 mg PO Q8HR PRN #10 tab 07/21/24 Allergies Allergy/AdvReac Type Severity Reaction Status Date / Time cephalexin monohydrate Allergy Rash/Hives Verified 11/04/24 13:21 [From Keflex] erythromycin base Allergy Rash/Hives Verified 11/04/24 13:21 [Erythromycin Base] lamotrigine [From Lamictal] Allergy Rash/Hives Verified 11/04/24 13:21 sulfamethoxazole Allergy Rash/Hives Verified 11/04/24 13:21 [From Bactrim] trimethoprim [From Bactrim] Allergy Rash/Hives Verified 11/04/24 13:21 vancomycin Allergy Rash/Hives Verified 11/04/24 13:21 Review of Systems ROS Statement: Those systems with pertinent positive or pertinent negative responses have been documented in the HPI. ROS Other: All systems not noted in ROS Statement are negative. Past Medical History Past Medical History: Asthma Additional Past Medical History / Comment(s): HTN WITH PAST WITH TWINS, -LMP 05/2019. Obstetric history: She has had 3 previous sections, last one was for twins. This is her fourth and she's had care with me since the first trimester. Blood type is O+, and because negative, rubella immune, hepatitis B-, RPR nonreactive, GBS negative. History of Any Multi-Drug Resistant Organisms: None Reported Past Surgical History: Adenoidectomy, Section, Tonsillectomy Additional Past Surgical History / Comment(s): abscess removed from neck Past Anesthesia/Blood Transfusion Reactions: No Reported Reaction, Motion Sickness Past Psychological History: Anxiety, Depression Smoking Status: Never smoker Past Alcohol Use History: None Reported Past Drug Use History: None Reported - Past Family History Mother Family Medical History: Hypertension General Exam Limitations: no limitations General appearance: alert, in no apparent distress Head exam: Present: atraumatic, normocephalic, normal inspection Eye exam: Present: normal appearance, PERRL, EOMI. Absent: scleral icterus, conjunctival injection, periorbital swelling ENT exam: Present: normal exam, mucous membranes moist Neck exam: Present: normal inspection. Absent: tenderness, meningismus, lymphadenopathy Respiratory exam: Present: normal lung sounds bilaterally. Absent: respiratory distress, wheezes, rales, rhonchi, stridor Cardiovascular Exam: Present: regular rate, normal rhythm, normal heart sounds. Absent: systolic murmur, diastolic murmur, rubs, gallop, clicks Extremities exam: Present: full ROM, tenderness (Left hip), normal capillary refill. Absent: pedal edema, joint swelling, calf tenderness Neurological exam: Present: alert, oriented X3 Psychiatric exam: Present: normal affect, normal mood Skin exam: Present: warm, dry, intact, normal color. Absent: rash Course Vital Signs 11/04/24 11/04/24 13:19 15:55 Temperature 97.8 F 98.8 F Pulse Rate 89 82 Respiratory 18 16 Rate Blood Pressure 130/86 130/84 O2 Sat by Pulse 99 97 Oximetry Medical Decision Making - Medical Decision Making Was pt. sent in by a medical professional or institution (, PA, WEBSPHERE PROCESS SERVER DEVELOPER, urgent care, hospital, or correction...) When possible be specific @ -No Did you speak to anyone other than the patient for history (EMS, parent, family, police, friend...)? What history was obtained from this source @ -No Did you review nursing and triage notes (agree or disagree)? Why? @ -I reviewed and agree with nursing and triage notes Were old charts reviewed (outside hosp., previous admission, EMS record, old EKG, old radiological studies, urgent care reports/EKG's, correction records)? Report findings @ -No old charts were reviewed Differential Diagnosis (chest pain, altered mental status, abdominal pain women, abdominal pain men, vaginal bleeding, weakness, fever, dyspnea, syncope, headache, dizziness, GI bleed, back pain, seizure, CVA, palpatations, mental health, musculoskeletal)? @ -Differential Musculoskeletal Muscular strain, contusion, ligament sprain, fracture, arthritis, septic arthritis, bursitis, cellulitis, muscle spasm, nerve compression, DVT, arterial occlusion, herpes zoster, electrolyte abnormality, tumor.... This is not meant to be in all inclusive list EKG interpreted by me (3pts min.). @ -None X-rays interpreted by me (1pt min.). @ -X-ray of the left hip and pelvis shows no evidence of acute process X-ray of the lumbar spine shows no evidence of acute process CT interpreted by me (1pt min.). @ -None done U/S interpreted by me (1pt. min.). @ -None done What testing was considered but not performed or refused? (CT, X-rays, U/S, labs)? Why? @ -None What meds were considered but not given or refused? Why? @ -None Did you discuss the management of the patient with other professionals (professionals i.e. , PA, WEBSPHERE PROCESS SERVER DEVELOPER, lab, RT, psych nurse, social studies teacher, skin care technician, teacher, department of natural resources officer, rn case manager)? Give summary @ -No Was smoking cessation discussed for >3mins.? @ -No Was critical care preformed (if so, how long)? @ -No Were there social determinants of health that impacted care today? How? (Homelessness, low income, unemployed, alcoholism, drug addiction, transportation, low edu. Level, literacy, decrease access to med. care, intermediate, rehab)? @ -No Was there de-escalation of care discussed even if they declined (Discuss DNR or withdrawal of care, Hospice)? DNR status @ -No What co-morbidities impacted this encounter? (DM, HTN, Smoking, COPD, CAD, Cancer, CVA, ARF, Chemo, Hep., AIDS, mental health diagnosis, sleep apnea, morbid obesity)? @ -None Was patient admitted / discharged? Hospital course, mention meds given and route, prescriptions, significant lab abnormalities, going to OR and other pertinent info. @ -Discharge. Patient presented emergency department for evaluation of left hip pain. X-rays obtained revealing no evidence of acute process. Patient was provided Toradol for pain. She does report some improvement in her pain. She will be discharged home advised follow-up to her PCP. She is understanding agreeable with plan. Patient stable at time of discharge. Case discussed with Dr. Riley Undiagnosed new problem with uncertain prognosis? @ -No Drug Therapy requiring intensive monitoring for toxicity (Heparin, Nitro, Insulin, Cardizem)? @ -No Were any procedures done? @ -No Diagnosis/symptom? @ -Back pain, hip pain Acute, or Chronic, or Acute on Chronic? @ -acute Uncomplicated (without systemic symptoms) or Complicated (systemic symptoms)? @ -uncomplicated Side effects of treatment? @ -No Exacerbation, Progression, or Severe Exacerbation? @ -No Poses a threat to life or bodily function? How? (Chest pain, [place], [place], pneumonia, PE, COPD, DKA, ARF, appy, cholecystitis, CVA, Diverticulitis, Homicidal, Suicidal, threat to staff... and all critical care pts) @ -No Disposition Clinical Impression: Back pain Disposition: HOME SELF-CARE Condition: Stable Instructions (If sedation given, give patient instructions): Acute Low Back Pain (ED) Additional Instructions: Please follow up with your primary care provider. Return to the emergency department for new or worsening symptoms. Is patient prescribed a controlled substance at d/c from ED?: No Referrals: None,Stated [Primary Care Provider] - 1-2 days Balta Chaparro MD [STAFF PHYSICIAN] - 1-2 days
[2024-11-04] MEDS: KETOROLAC 15 MG/ML 1 ML VIAL IM STA (14:15)
--- NOTE | 2024-11-04 14:46 | XR ---
EXAMINATION TYPE: XR Hip LT and AP Pelvis DATE OF EXAM: 11/04/2024 COMPARISON: CT abdomen and pelvis July 21, 2024 CLINICAL INDICATION: Female, 29 years old with history of pain; TECHNIQUE: A single AP view of the pelvis is obtained. Two views of the left hip are obtained. FINDINGS: There is no acute fracture/dislocation evident in the pelvis or left hip. The hip and sac roiliac joints appear symmetric and unremarkable. Pubic symphysis is intact. The overlying soft tissu e appears unremarkable. IMPRESSION: There is no acute fracture or dislocation in the pelvis or left hip. [facility], , 11/04/2024 2:43 PM
--- NOTE | 2024-11-04 14:47 | XR ---
EXAMINATION TYPE: XR lumbar spine 2 or 3V DATE OF EXAM: 11/04/2024 2:41 PM COMPARISON: Prior lumbar spine x-ray March 31, 2024. CLINICAL INDICATION: Female, 29 years old with history of pain, pain TECHNIQUE: Frontal and lateral oblique images of the lumbar spine are obtained. FINDINGS: There are 5 lumbar type vertebral bodies redemonstrated. The lumbar spine shows stable an d satisfactory alignment without evidence of acute fracture or dislocation. Vertebral body heights an d disk space heights remain within normal limits. The overlying soft tissue appears unremarkable. IMPRESSION: No acute fracture or dislocation is seen in the lumbar spine. [facility], , 11/04/2024 2:44 PM
[2024-11-04 15:57] VITALS: BP 130/84; PULSE 82; RESP 16; TEMP 98.8
== END 2024-11-04 15:56 | disposition home or self-care (01) ==
LOC: EC 13:18
DX: M54.50 Low back pain, unspecified (principal); M25.552 Pain in left hip; Z88.1 Allergy status to other antibiotic agents; Z88.2 Allergy status to sulfonamides; Z88.8 Allergy status to other drugs, medicaments and biological substances
CPT/HCPCS: 72100; 73502; 99283; 96372; J1885